=== PATIENT | male | born 1950 ===

== ENCOUNTER 2020-11-15 16:30 | Inpatient (IN) | payer MEDICARE, SELFPAY ==
--- NOTE | ~2020-11-15 | CT_ITS ---
EXAMINATION: CT ABDOMEN AND PELVIS WITHOUT CONTRAST CLINICAL INFORMATION: Fever, pain urinating, hematuria COMPARISON: None TECHNIQUE: Multidetector volumetric imaging was performed from the superior aspect of the liver through the pubic symphysis. Sagittal and coronal reformatted images were obtained on the technologist's workstation. This CT examination was performed using dose optimization techniques as appropriate, variously including the following: *Automated exposure control *Adjustment of mA and/or kV according to patient size (this includes techniques or standardized protocols for targeted exams where dose is matched to indication/reason for exam; i.e. extremities or head) *Use of iterative reconstruction technique DLP: 517 mGy-cm FINDINGS: LUNG BASES: No acute findings. LIVER, GALLBLADDER, AND BILIARY TREE: The liver is normal in size, shape, and attenuation. No biliary ductal dilatation is present. There is a 1.1 cyst within segment 2 of the liver. The gallbladder is unremarkable with no evidence of radiopaque gallstones, gallbladder wall thickening, or obvious pericholecystic inflammatory changes. PANCREAS: Unremarkable. SPLEEN: Unremarkable. ADRENAL GLANDS: Unremarkable. KIDNEYS AND URETERS: Moderate nonspecific perinephric stranding bilaterally. No evidence of hydronephrosis or hydroureter. No radiopaque urolithiasis appreciated. The kidneys are normal in size and shape. BLADDER: The bladder is decompressed which limits assessment. There is circumferential bladder wall thickening and diffuse stranding of the perivesicular fat. GASTROINTESTINAL TRACT: Diverticulosis without CT evidence of diverticulitis. The appendix is unremarkable. No evidence of bowel obstruction. ABDOMINAL WALL: No significant hernia is appreciated. LYMPH NODES: No lymphadenopathy within the abdomen or pelvis by CT criteria. VASCULAR: Atherosclerosis abdominal aorta without evidence of aneurysm. The IVC is singular and right-sided. PELVIC VISCERA: The prostate is enlarged measuring 5.7 cm. OSSEOUS STRUCTURES: No acute or suspicious osseous abnormality. CT/CT abdomen pelvis wo con IMPRESSION: 1. The bladder is decompressed which limits assessment. There is circumferential bladder wall thickening and diffuse stranding of the perivesicular fat. Clinical correlation for cystitis requested. 2. Moderate perinephric stranding bilaterally, nonspecific with differential diagnosis including pyelonephritis as well as multiple renal disease. No evidence of hydroureteronephrosis or radiopaque urolithiasis. 3. Diverticulosis without CT evidence of diverticulitis. 4. Prostatomegaly.
--- NOTE | ~2020-11-15 | XR_ITS ---
EXAMINATION: XR CHEST CLINICAL INFORMATION: Fever. COMPARISON: Chest x-ray May 23, 2019 TECHNIQUE: Frontal portable view of the chest was obtained. 11:10 PM FINDINGS: Lungs are clear. No pulmonary vascular congestion. There is no pleural effusion. The heart size is normal. The cardiac and mediastinal contours are normal. There are calcifications of the thoracic aorta. There is no acute osseous abnormality. XR/XR chest 1V IMPRESSION: Unremarkable examination.
[2020-11-15 16:54] VITALS: BP 127/75; PULSE 93; RESP 18; TEMP 36.6; O2SAT 96; BMI 26.4
[2020-11-15 20:03] VITALS: BP 159/88; PULSE 98; RESP 16; TEMP 38.6; O2SAT 98
--- NOTE | 2020-11-15 20:13 | ED_ITS ---
HPI - Male Genitourinary General Chief complaint: Urogenital-Male Stated complaint: UTI? Time Seen by Provider: 11/15/20 20:00 Source: patient, family and interpreter translator Mode of arrival: ambulatory Limitations: no limitations History of Present Illness HPI Narrative: 70-year-old male came for evaluation of dysuria, frequency, intermittent fever and chills. Patient's symptoms started 2 days ago, symptoms has been constant, no abdominal pain, no nausea, vomiting, diarrhea. Had 1 time urine tract infection in the past. Related Data Allergies Allergy/AdvReac Type Severity Reaction Status Date / Time No Known Allergies Allergy Unverified 01/08/20 19:48 [No Known Allergies*] Review of Systems Review of Systems: All other systems are reviewed and are negative Constitutional: Reports as per HPI and Reports no additional constitutional complaints Eyes: Reports as per HPI and Reports no additional eye complaints Reports system reviewed and no additional complaints, except as documented Cardiovascular: Reports as per HPI and Reports no additional cardiovascular complaints Respiratory: Reports as per HPI and Reports no additional respiratory complaints Gastrointestinal: Reports as per HPI and Reports no additional gastrointestinal complaints Genitourinary: Reports no additional female genitourinary complaints Musculoskeletal: Reports no additional musculoskeletal complaints Skin/Breast: Reports system reviewed and no additional complaints, except as docu Psychiatric: Reports no additional psychiatric complaints Endocrine: Reports no additional endocrine complaints Hematologic/Lymphatic: Reports no additional hematologic/lymphatic complaints Allergic/Immunologic: Reports no additional allergic/immunologic complaints Reports system reviewed and no additional complaints, except as documented and Reports Abnormal speech present PMFSH Past Medical History Medical History Cigarette smoker HTN (hypertension) Surgical History No history of previous surgery Social History Social History Advance Directives: No Advance Directives Information Provided: Yes Physical Exam Vital Signs: Vital Signs: Last Vital Signs Temp 101.5 F H 11/15/20 20:03 Pulse 80 11/15/20 21:52 Resp 16 11/15/20 21:52 BP 127/75 11/15/20 21:52 Pulse Ox 97 11/15/20 21:52 Body Mass Index 26.4 Vital signs have been reviewed as appeared to be correct. Blood pressure normal. Heart rate normal. Respiration rate normal. Temperature (febrile). Oxygen saturation normal. Appearance: Alert. Oriented X3. No acute distress. Head: Normal external exam. Normocephalic. Atraumatic. No Monsivais signs noted. No raccoon eyes noted Eyes: PERRLA. EOMI. Conjunctiva and sclera normal. Eyelids normal. ENT: TM's Normal. Pharynx normal. Uvula midline. Moist mucous membranes. No tr ismus noted. No drooling noted. No muffled voice noted. Neck: Normal inspection. Neck supple. FROM. No adenopathy. Thyroid Normal. No meningeal signs. No neck mass noted. CVS: Normal heart rate and rhythm. Heart sound normal. No murmurs noted. Pulses normal throughout. Respiratory: No respiratory distress. Painless inspiration. Breath sounds normal. No wheezes/rales/rhonchi noted. Chest nontender. No accessory muscle usage noted or decreased air movement noted. Abdomen: Soft and nontender. Bowel sounds normal in all 4 quadrants. No distention noted. No organomegaly noted. No visible injury noted. Back: No CVA tenderness. Full range of motion noted. Skin: Skin warm and dry. Normal skin color. Normal skin turgor. No rashes/lesions/lacerations noted. Extremities: No lower extremity edema. Extremities exhibit normal range of motion. Extremities nontender. Neuro: Oriented X 3. No motor deficit. No sensory deficit. Reflexes normal. Course Course Course Narrative: Assessment and plan. 78-year-old male came in with dysuria, found have cystitis with SIRS, patient received IV fluid, and IV antibiotics. [facility] - Male Genitourinary Lab Data Attestation: I reviewed the patient's lab results. Result diagrams: 11/15/20 20:45 11/15/20 20:45 Labs: Lab Results 11/15/20 11/15/20 11/15/20 Range/Units 20:05 20:45 20:45 WBC 13.2 H (4.8-10.8) X10*3/uL RBC 4.42 L (4.60-5.80) X10*6/uL Hgb 13.8 L (14.0-18.0) g/dl Hct 39.8 L (42-52) % MCV 90.0 (80-98) fL MCH 31.2 (27.0-33.0) pg MCHC 34.7 (31.0-36.0) g/dl RDW 13.9 (11.0-16.0) % Plt Count 166 (160-400) X10*3/uL MPV 11.9 (9.4-12.4) fL Immature Gran % (Auto) 0.5 H (0.0-0.4) % Neut % (Auto) 89.2 H (45-73) % Lymph % (Auto) 2.6 L (20-40) % [place] % (Auto) 7.4 (2-11) % Eos % (Auto) 0.1 (0-4) % Baso % (Auto) 0.2 (0-2) % Lymph # (Auto) 0.3 L (1.2-4.9) X10*3/uL [place] # (Auto) 1.0 (0.1-1.2) X10*3/uL Eos # (Auto) 0.0 (0.0-0.4) X10*3/uL Baso # (Auto) 0.0 (0.0-0.2) X10*3/uL Abs Immat Gran (auto) 0.06 H (0.00-0.03) X10*3/uL Absolute Neuts (auto) 11.8 H (2.0-8.3) X10*3/uL Absolute Nucleated RBC 0.000 (0.0-0.012) X10*3/uL Nucleated RBC % (auto) 0.0 (0.0-0.2) /100WBC Sodium 132 L (135-145) mmol/L Potassium 3.9 (3.3-5.1) mmol/L Chloride 94 L (96-108) mmol/L Carbon Dioxide 26 (22-29) mmol/L Anion Gap 16 (12-20) BUN 22 H (9-16) mg/dL Creatinine 1.34 (0.5-1.4) mg/dL Estim Creat Clear Calc 48.9 Estimated GFR 53 Random Glucose 124 H (60-115) mg/dL Lactic Acid (0.5-2.0) mmol/L Calcium 7.8 L (8.4-10.2) mg/dL Total Bilirubin 0.7 (0.0-1.0) mg/dL Direct Bilirubin 0.4 (0.0-0.5) mg/dL AST 22 (5-37) U/L ALT 26 (0-40) U/L Alkaline Phosphatase 107 (39-117) U/L Total Protein 5.8 L (6.5-8.0) g/dL Albumin 3.4 L (3.5-5.0) g/dL Lipase 10 (8-78) U/L Urine Color YELLOW Urine Appearance CLOUDY Urine pH 6.0 (5.0-8.0) Ur Specific [place] 1.025 (1.005-1.025) Urine Protein 2+ H (NEG-TRACE) MG/DL Urine Glucose (UA) NEG (NEG) MG/DL Urine Ketones NEG (NEG) MG/DL Urine Blood 2+ H (NEG) Urine Nitrite NEG (NEG) Ur Leukocyte Esterase 2+ H (NEG) Urine RBC 1-4 (0) /HPF Urine WBC 15-29 H (0-4) /HPF Ur Squamous Epith Cells TRACE /LPF Amorphous Sediment TRACE /LPF Urine Bacteria 1+ /LPF 11/15/20 Range/Units 20:45 WBC (4.8-10.8) X10*3/uL RBC (4.60-5.80) X10*6/uL Hgb (14.0-18.0) g/dl Hct (42-52) % MCV (80-98) fL MCH (27.0-33.0) pg MCHC (31.0-36.0) g/dl RDW (11.0-16.0) % Plt Count (160-400) X10*3/uL MPV (9.4-12.4) fL Immature Gran % (Auto) (0.0-0.4) % Neut % (Auto) (45-73) % Lymph % (Auto) (20-40) % [place] % (Auto) (2-11) % Eos % (Auto) (0-4) % Baso % (Auto) (0-2) % Lymph # (Auto) (1.2-4.9) X10*3/uL [place] # (Auto) (0.1-1.2) X10*3/uL Eos # (Auto) (0.0-0.4) X10*3/uL Baso # (Auto) (0.0-0.2) X10*3/uL Abs Immat Gran (auto) (0.00-0.03) X10*3/uL Absolute Neuts (auto) (2.0-8.3) X10*3/uL Absolute Nucleated RBC (0.0-0.012) X10*3/uL Nucleated RBC % (auto) (0.0-0.2) /100WBC Sodium (135-145) mmol/L Potassium (3.3-5.1) mmol/L Chloride (96-108) mmol/L Carbon Dioxide (22-29) mmol/L Anion Gap (12-20) BUN (9-16) mg/dL Creatinine (0.5-1.4) mg/dL Estim Creat Clear Calc Estimated GFR Random Glucose (60-115) mg/dL Lactic Acid 0.9 (0.5-2.0) mmol/L Calcium (8.4-10.2) mg/dL Total Bilirubin (0.0-1.0) mg/dL Direct Bilirubin (0.0-0.5) mg/dL AST (5-37) U/L ALT (0-40) U/L Alkaline Phosphatase (39-117) U/L Total Protein (6.5-8.0) g/dL Albumin (3.5-5.0) g/dL Lipase (8-78) U/L Urine Color Urine Appearance Urine pH (5.0-8.0) Ur Specific [place] (1.005-1.025) Urine Protein (NEG-TRACE) MG/DL Urine Glucose (UA) (NEG) MG/DL Urine Ketones (NEG) MG/DL Urine Blood (NEG) Urine Nitrite (NEG) Ur Leukocyte Esterase (NEG) Urine RBC (0) /HPF Urine WBC (0-4) /HPF Ur Squamous Epith Cells /LPF Amorphous Sediment /LPF Urine Bacteria /LPF Imaging Data CT scan - abdomen: Radiologist's impression: 1. The bladder is decompressed which limits as sessment. There is circumferential bladder wall thickening and diffuse stranding of the perivesicular fat. Clinical correlation for cystitis requested. 2. Moderate perinephric stranding bilaterally, nonspecific with differential diagnosis including pyelonephritis as well as multiple renal disease. No evidence of hydroureteronephrosis or radiopaque urolithiasis. 3. Diverticulosis without CT evidence of diverticulitis. 4. Prostatomegaly. Discharge Plan Discharge Clinical Impression: Urinary tract infection Patient Disposition: Admitted As Inpatient
[2020-11-15 20:26] LABS: Glucose Urine UA NEG (NEG); Leukocyte Esterase Urine 2+ (NEG); Nitrite Urine NEG (NEG); Specific Gravity - Urine 1.025 (1.005-1.025); UACC Culture Trigger YES; Urine Blood 2+ (NEG); Urine Ketones NEG (NEG); Urine Protein 2+ MG/DL (NEG-TRACE)
[2020-11-15 20:31] LABS: Appearance Urine CLOUDY; Color Urine YELLOW
[2020-11-15 20:51] LABS: Amorphous Sediment Urine TRACE /LPF; Bacteria Urine 1+ /LPF; Squamous Epithelial Cell Urine TRACE /LPF
[2020-11-15 20:58] LABS: MANUAL DIFF FLAG NO
[2020-11-15 21:00] LABS: Basophils Percent Auto 0.2 % (0-2); Eosinophils Percent Auto 0.1 % (0-4); Hematocrit 39.8 % (42-52); Hemoglobin 13.8 g/dl (14.0-18.0); Imm Gran Abs Auto 0.06 X10*3/uL (0.00-0.03); Imm Gran Pct Auto 0.5 % (0.0-0.4); Lymphocytes Absolute Auto 0.3 X10*3/uL (1.2-4.9); Lymphocytes Percent Auto 2.6 % (20-40); Mean Corpuscular HGB Conc 34.7 g/dl (31.0-36.0); Mean Corpuscular Hemoglobin 31.2 pg (27.0-33.0); Mean Platelet Volume 11.9 fL (9.4-12.4); Monocytes Percent Auto 7.4 % (2-11); Neutrophils Absolute Auto 11.8 X10*3/uL (2.0-8.3); Neutrophils Percent Auto 89.2 % (45-73); Platelet Count 166 X10*3/uL (160-400); Red Blood Count 4.42 X10*6/uL (4.60-5.80); Red Cell Distribution Width 13.9 % (11.0-16.0); White Blood Count 13.2 X10*3/uL (4.8-10.8)
--- NOTE | 2020-11-15 21:11 | PC.NURSE ---
20 ga iv started in L ac.
[2020-11-15 21:19] LABS: Lactic Acid 0.9 mmol/L (0.5-2.0)
[2020-11-15 21:29] LABS: Alanine Aminotransferase 26 U/L (0-40); Albumin Level 3.4 g/dL (3.5-5.0); Alkaline Phosphatase 107 U/L (39-117); Anion Gap 16 (12-20); Aspartate Amino Transferase 22 U/L (5-37); Bilirubin Direct 0.4 mg/dL (0.0-0.5); Bilirubin Total 0.7 mg/dL (0.0-1.0); Blood Urea Nitrogen 22 mg/dL (9-16); Calcium 7.8 mg/dL (8.4-10.2); Carbon Dioxide 26 mmol/L (22-29); Chloride 94 mmol/L (96-108); Creatinine Clr Calc Pharmacy 48.9; Estimated Glomerular Filt Rate 53; Glucose Random 124 mg/dL (60-115); Lipase 10 U/L (8-78); Potassium 3.9 mmol/L (3.3-5.1); Sodium 132 mmol/L (135-145); Total Protein 5.8 g/dL (6.5-8.0)
[2020-11-15] MEDS: levoFLOXacin/D5W 750 MG/150 ML PIGGYBACK 100 MG IV (21:43)
[2020-11-15] MEDS: 0.9 % Sodium Chloride 1,000 ML 999 ML IVCONT (21:43)
[2020-11-15 21:52] VITALS: BP 127/75; PULSE 80; RESP 16; O2SAT 97
[2020-11-15] MEDS: cefTRIAXone sodium 1 GM in 0.9 % Sodium Chloride 50 ML IV (23:33)
[2020-11-16] VITALS: RESP 18
[2020-11-16 00:14] LABS: COVID-19 Test Negative (Negative); IDNOW Serial# 9DD0AD1C
[2020-11-16] MEDS: 0.9 % Sodium Chloride 1,000 ML 100 ML IVCONT ×2 (03:42→11:34)
--- NOTE | 2020-11-16 06:13 | P.HPHOSP_ITS ---
History of Present Illness Date of Service: 11/16/20 Chief Complaint: Urinary infection 70-year-old male Ecuadorean-speaking only with past medical history of hypertension, BPH not on medications who presents to the hospital with complaints of urinary infection. Patient reports urinary frequency, dysuria, urgency for the past 3 days that worsened over the past 1 day. He feels feverish, has chills, he has bilateral flank pain, weakness, low appetite. He has nausea with no vomiting, he has been having diarrhea 1-2 episodes daily for the past 3 days, denies any shortness of breath, no chest pain, no lower extr emity edema, no numbness tingling a no weakness. Has a temperature of 101.5?, blood pressure 159/88, respiratory rate of 16 with a heart rate of 98 satting 98% on room air Labs are significant for WBC count of 13.2, hemoglobin of 13.8, sodium of 132, BUN of 22, creatinine of 1.34, UA that is positive for leukocyte Estrace and WBC, COVID-[address] shows decompressed bladder, circumferential bladder wall thickening and diffuse stranding of the ford fascicular fat consider cystitis, moderate perinephric stranding bilaterally consider pyelonephritis. Diverticulosis with no diverticulitis, prostatomegaly Past medical history as below and confirmed with patient and his at bedside Review of Systems Review of Systems: Yes all other systems are reviewed and are negative [facility] Medical History (Updated 11/16/20 @ 06:20 by Huong Flores MD) Cigarette smoker HTN (hypertension) Surgical History No history of previous surgery Social History Alcohol intake: current Alcohol intake frequency: holidays/special occasions only Patient Tobacco Use Status: Current everyday Tobacco user Smoked in Last 30 Days: No Use of substances other than those prescribed or required for medical reasons: No Advance Directives: No Advance Directives Information Provided: Yes Meds Allergies Allergy/AdvReac Type Severity Reaction Status Date / Time No Known Allergies Allergy Unverified 01/08/20 19:48 [No Known Allergies*] Active Medications: Current Medications Generic Name Dose Route Start Last Admin Trade Name Freq PRN Reason Stop Dose Admin Acetaminophen 650 mg 11/16/20 00:45 Acetaminophen 325 Mg Tablet PO Q6H PRN Pain, Mild (Pain Scale 1-3) Docusate Sodium 100 mg 11/16/20 00:45 Docusate Sodium 100 Mg Capsule PO DAILY PRN Constipation Enoxaparin Sodium 40 mg 11/16/20 02:00 11/16/20 03:43 Enoxaparin Sodium 40 Mg/0.4 Ml Syringe SUBCUT Not Given Q24H [facility] Ceftriaxone Sodium 1 gm/ 50 mls @ 100 mls/hr 11/16/20 22:00 Sodium Chloride IV Q24H MELLO Sodium Chloride 1,000 mls @ 100 mls/hr 11/16/20 00:45 11/16/20 03:42 Ns IVCONT 100 mls/hr .Q10H MELLO Administration Ondansetron HCl 4 mg 11/16/20 00:45 Ondansetron Hcl 4 Mg/2 Ml Vial IVPUSH Q8H PRN Nausea and Vomiting Sodium Chloride 3 ml 11/16/20 08:00 0.9 % Sodium Chloride Flush 3 Ml Syringe IVFLUSH QSHIFT [facility] Home Medications Medication Instructions Recorded Confirmed Last Taken Type No Known Home Meds 11/16/20 11/16/20 Unknown History Physical Exam Vital Signs and Narrative: Vital Signs: Last Vital Signs Temp 101.5 F H 11/15/20 20:03 Pulse 80 11/15/20 21:52 Resp 18 11/16/20 00:00 BP 127/75 11/15/20 21:52 Pulse Ox 97 11/15/20 21:52 Body Mass Index 26.4 Const: General: cooperative and no acute distress Orientat ion/consciousness: patient oriented x3 Eyes: General: appearance normal, both eyes and all related structures Resp: Effort & Inspection: normal respiratory effort and able to speak in complete sentences Cardio: Rate: regular rate Rhythm: regular rhythm GI: Palpation (GI): Soft to palpation Auscultation: normal bowel sounds : Other: Bilateral CVA tenderness Skin: General skin exam: no rashes or lesions noted Neuro: General: patient oriented x3 Cognition (Neuro): normal cognition Extrem: General: Yes normal to inspection and Yes no pedal edema Results Labs CBC and Chem 7: 11/15/20 20:45 11/15/20 20:45 Labs: Laboratory Results - last 24 hr 11/15/20 11/15/20 11/15/20 20:05 20:45 20:45 MCV 90.0 MCH 31.2 MCHC 34.7 RDW 13.9 Plt Count 166 MPV 11.9 Immature Gran % (Auto) 0.5 H Neut % (Auto) 89.2 H Lymph % (Auto) 2.[address] [place] % (Auto) 7.4 Eos % (Auto) 0.1 Baso % (Auto) 0.2 Lymph # (Auto) 0.[address] [place] # (Auto) 1.0 Eos # (Auto) 0.0 Baso # (Auto) 0.0 Abs Immat Gran (auto) 0.06 H Absolute Neuts (auto) 11.8 H Absolute Nucleated RBC 0.000 Nucleated RBC % (auto) 0.0 Anion Gap 16 Estim Creat Clear Calc 48.9 Estimated GFR 53 Random Glucose 124 H Lactic Acid Calcium 7.8 L Total Bilirubin 0.7 Direct Bilirubin 0.4 AST 22 ALT 26 Alkaline Phosphatase 107 Total Protein 5.8 L Albumin 3.4 L Lipase 10 Urine Color YELLOW Urine Appearance CLOUDY Urine pH 6.0 Ur Specific [place] 1.025 Urine Protein 2+ H Urine Glucose (UA) NEG Urine Ketones NEG Urine Blood 2+ H Urine Nitrite NEG Ur Leukocyte Esterase 2+ H Urine RBC 1-4 Urine WBC 15-29 H Ur Squamous Epith Cells TRACE Amorphous Sediment TRACE Urine Bacteria 1+ COVID-19 (UZAIR) COVID-19 Clin Com 11/15/20 11/15/20 20:45 23:34 MCV MCH MCHC RDW Plt Count MPV Immature Gran % (Auto) Neut % (Auto) Lymph % (Auto) [place] % (Auto) Eos % (Auto) Baso % (Auto) Lymph # (Auto) [place] # (Auto) Eos # (Auto) Baso # (Auto) Abs Immat Gran (auto) Absolute Neuts (auto) Absolute Nucleated RBC Nucleated RBC % (auto) Anion Gap Estim Creat Clear Calc Estimated GFR Random Glucose Lactic Acid 0.9 Calcium Total Bilirubin Direct Bilirubin AST ALT Alkaline Phosphatase Total Protein Albumin Lipase Urine Color Urine Appearance Urine pH Ur Specific [place] Urine Protein Urine Glucose (UA) Urine Ketones Urine Blood Urine Nitrite Ur Leukocyte Esterase Urine RBC Urine WBC Ur Squamous Epith Cells Amorphous Sediment Urine Bacteria COVID-19 (UZAIR) Negative COVID-19 Clin Com See Note Imaging Radiologist's Impressions: Impressions Abdomen/Pelvis CT 11/15/20 20:12 IMPRESSION: 1. The bladder is decompressed which limits assessment. There is circumferential bladder wall thickening and diffuse stranding of the perivesicular fat. Clinical correlation for cystitis requested. 2. Moderate perinephric stranding bilaterally, nonspecific with differential diagnosis including pyelonephritis as well as multiple renal disease. No evidence of hydroureteronephrosis or radiopaque urolithiasis. 3. Diverticulosis without CT evidence of diverticulitis. 4. Prostatomegaly. Chest X-Ray 11/15/20 23:11 IMPRESSION: Unremarkable examination. Assessment and Plan (1) Sepsis: Status: Acute (2) Pyelonephritis: Status: Acute (3) Cystitis: Status: Acute (4) DEYANIRA (acute kidney injury): Status: Acute 70-year-old male with past medical history of hypertension not on medication who presents to the hospital with complaints of urinary symptoms found to have sepsis secondary to pyelonephritis/cystitis # sepsis - afebrile, has leukocytosis - sources most likely urine - will start him on IV antibiotics - follow culture - IV fluid # pyelonephritis/cystitis - S seen on CT abdomen/pelvis - start him on IV antibiotic - IV fluid - follow culture # DEYANIRA - most likely secondary to UTI/pyelonephritis - will start him on IV fluid - follow BMP # hypertension - stable - patient reports that he does not take medication DVT prophylaxis: lovenox Quality Stroke Does the patient have a stroke diagnosis?: No VTE Prior VTE?: No VTE Risk Level:: Medical - moderate - high VTE Device Contraindication: Treatment Not Indicated VTE Drug Contraindication: N/A - Med Ordered
[2020-11-16 08:51] VITALS: BP 148/79; PULSE 87; RESP 18; TEMP 37.6; O2SAT 98
--- NOTE | 2020-11-16 08:55 | PC.NURSE ---
Patient is lying in bed resting quietly in no distress. Pt states he only hurts when he tries to void. Family is at bedside
--- NOTE | 2020-11-16 10:12 | MHC.CM.PN ---
Met with patient and spouse Santa and the help of the component assembler supervisor. Patient lives with his daughter, ambulates independently and had no services prior to coming to the hospital. Patient's PCP is in [place]. Patient denies having a HCP. Information provided. Patient not interested in completing one at this time. Patient received 2 doses of Moderna vaccine. IMM explained and signed. Anticipate patient will not be eligible for any home services because PCP is in [place]. Family will transport patient home when medically stable. Continue to monitor or d/c needs.
--- NOTE | 2020-11-16 10:12 | PC.NURSE ---
Report jewell to ONELAI Santana.
[2020-11-16] MEDS: 0.9 % Sodium Chloride Flush 3 ML SYRINGE IVFLUSH ×3 (11:34→21:00)
[2020-11-16 11:59] VITALS: BP 149/80; PULSE 74; RESP 20; TEMP 36.9; O2SAT 98
--- NOTE | 2020-11-16 14:07 | PM.EVENT ---
Event Note Date of Service: 11/16/20 Event Note: Day Team Note S Resting comfortably Daughter beside who endorses urinary symptoms on going during their trip to [place]. O vitals - stable Gen - sleeping CVS - S1S2 LUngs - clear Abd - soft - no flank tenderness A/P 70 yo admitted for sepsis secondary to pyelonephritis IV rocephin f/u cultures has enlarged prostate on CT -- will start flomax
[2020-11-16 16:00] VITALS: BP 170/91; PULSE 78; RESP 18; TEMP 37.4; O2SAT 98
[2020-11-16 20:00] VITALS: BP 136/72; PULSE 76; RESP 14; TEMP 37.3; O2SAT 96
[2020-11-16] MEDS: cefTRIAXone sodium 1 GM in 0.9 % Sodium Chloride 50 ML IV (20:59)
[2020-11-16] MEDS: Tamsulosin HCL 0.4 MG CAPSULE PO (20:59)
[2020-11-16 23:54] VITALS: BP 126/78; PULSE 64; RESP 16; TEMP 36.3; O2SAT 97
[2020-11-17] MEDS: Enoxaparin Sodium 40 MG/0.4 ML SYRINGE SUBCUT (03:02)
[2020-11-17 06:36] LABS: Basophils Percent Auto 0.3 % (0-2); Eosinophils Absolute Auto 0.1 X10*3/uL (0.0-0.4); Eosinophils Percent Auto 1.8 % (0-4); Hematocrit 36.9 % (42-52); Hemoglobin 12.5 g/dl (14.0-18.0); Imm Gran Abs Auto 0.02 X10*3/uL (0.00-0.03); Imm Gran Pct Auto 0.3 % (0.0-0.4); Lymphocytes Absolute Auto 1.1 X10*3/uL (1.2-4.9); Lymphocytes Percent Auto 13.9 % (20-40); MANUAL DIFF FLAG SCAN; Mean Corpuscular HGB Conc 33.9 g/dl (31.0-36.0); Mean Corpuscular Hemoglobin 30.6 pg (27.0-33.0); Mean Corpuscular Volume 90.2 fL (80-98); Mean Platelet Volume 11.9 fL (9.4-12.4); Monocytes Absolute Auto 1.6 X10*3/uL (0.1-1.2); Monocytes Percent Auto 20.7 % (2-11); Platelet Count 171 X10*3/uL (160-400); Red Blood Count 4.09 X10*6/uL (4.60-5.80); Red Cell Distribution Width 14.2 % (11.0-16.0); SCAN SMEAR FLAG 1; White Blood Count 7.8 X10*3/uL (4.8-10.8)
[2020-11-17 06:48] LABS: Anion Gap 10 (12-20); Blood Urea Nitrogen 13 mg/dL (9-16); Calcium 7.9 mg/dL (8.4-10.2); Carbon Dioxide 29 mmol/L (22-29); Chloride 102 mmol/L (96-108); Estimated Glomerular Filt Rate > 60; Glucose Random 121 mg/dL (60-115); Potassium 3.7 mmol/L (3.3-5.1); Sodium 137 mmol/L (135-145)
[2020-11-17 07:35] VITALS: BP 127/75; PULSE 54; RESP 17; TEMP 36.5; O2SAT 96
[2020-11-17 07:43] LABS: SLIDE REVIEW VERIFIED
--- NOTE | 2020-11-17 09:23 | HO.PM.IMPN ---
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 Reports he is not sexually active, with his nor anyone else Review of Systems General - no fevers or chills Cardiovascular - no chest pain Respiratory - no shortness of breath or cough Abdominal- no abdominal pain, nausea, vomiting, diarrhea Physical Exam Vital Signs: Vital Signs: Last Vital Signs Temp 97.7 F 11/17/20 07:35 Pulse 54 11/17/20 07:35 Resp 17 11/17/20 07:35 BP 127/75 11/17/20 07:35 Pulse Ox 96 11/17/20 07:35 Body Mass Index 26.4 Const: Other: General - no acute distress, appears comfortable Cardiovascular - regular rate and rhythm, S1-S2 Lungs - normal respiratory effort, clear to auscultation bilaterally, no wheezing Abdomen - soft, nontender, no rebound or guarding Extremities - no edema bilaterally Neuro - awake and alert, no focal deficits Objective Data Current Medications Generic Name Dose Route Start Last Admin Trade Name Desmondq PRN Reason Stop Dose Admin Acetaminophen 650 mg 11/16/20 00:45 Acetaminophen 325 Mg Tablet PO Q6H PRN Pain, Mild (Pain Scale 1-3) Docusate Sodium 100 mg 11/16/20 00:45 Docusate Sodium 100 Mg Capsule PO DAILY PRN Constipation Enoxaparin Sodium 40 mg 11/16/20 02:00 11/17/20 03:02 Enoxaparin Sodium 40 Mg/0.4 Ml Syringe SUBCUT 40 mg Q24H MELLO Administration Ceftriaxone Sodium 1 gm/ 50 mls @ 100 mls/hr 11/16/20 22:00 11/16/20 21:36 Sodium Chloride IV Infused Q24H MELLO Infusion Ondansetron HCl 4 mg 11/16/20 00:45 Ondansetron Hcl 4 Mg/2 Ml Vial IVPUSH Q8H PRN Nausea and Vomiting Sodium Chloride 3 ml 11/16/20 08:00 11/16/20 21:00 0.9 % Sodium Chloride Flush 3 Ml Syringe IVFLUSH 3 ml QSHIFT MELLO Administration Tamsulosin HCl 0.4 mg 11/16/20 21:00 11/16/20 20:59 Tamsulosin Hcl 0.4 Mg Capsule PO 0.4 mg BEDTIME MELLO Administration Labs CBC & Chem 7: 11/17/20 04:57 11/17/20 04:57 Labs: Laboratory Results - last 24 hr 11/17/20 11/17/20 04:57 04:57 WBC 7.8 RBC 4.09 L Hgb 12.5 L Hct 36.9 L MCV 90.2 MCH 30.6 MCHC 33.9 RDW 14.2 Plt Count 171 MPV 11.9 Immature Gran % (Auto) 0.3 Neut % (Auto) 63.0 Lymph % (Auto) 13.9 L [place] % (Auto) 20.7 H Eos % (Auto) 1.8 Baso % (Auto) 0.3 Lymph # (Auto) 1.1 L [place] # (Auto) 1.6 H Eos # (Auto) 0.1 Baso # (Auto) 0.0 Abs Immat Gran (auto) 0.02 Absolute Neuts (auto) 5.0 Absolute Nucleated RBC 0.000 Nucleated RBC % (auto) 0.0 Smear Tech's Comments VERIFIED Sodium 137 Potassium 3.7 Chloride 102 Carbon Dioxide 29 Anion Gap 10 L BUN 13 Creatinine 0.95 Estim Creat Clear Calc 69.0 Estimated GFR > 60 Random Glucose 121 H Calcium 7.9 L Microbiology Microbiology Results: Microbiology 11/15/20 21:14 Blood Culture - Preliminary Blood - Venous No growth after 24 hours. 11/15/20 20:45 Blood Culture - Preliminary Blood - Venous No growth after 24 hours. 11/15/20 Unknown Urine Culture - Preliminary Urine clean catch - Urine villa top Culture in progress. Assessment and Plan (1) Sepsis: Status: Acute Assessment and Plan: 70-year-old male with past medical history of hypertension not on medication who presents to the hospital with complaints of urinary symptoms found to have sepsis secondary to pyelonephritis/cystitis Sepsis resolving source f/u on cultures -- GNB in the urine Pyelonephritis, bilateral IV rocephin Pyridium for dysuria DEYANIRA - suspected ATN from sepsis SCr improved from 1.34 to 0.95 continue to monitor HTN previously on meds --- unclear which will start norvasc 5mg Enlarged Prostate flomax will give out patient referral to Urology Full Code DVT pptx, Lovenox Quality Stroke Does the patient have a stroke diagnosis?: No VTE Prior VTE?: No VTE Risk Level:: Medical - moderate - high VTE Device Contraindication: Treatment Not Indicated VTE Drug Contraindication: N/A - Med Ordered
[2020-11-17] MEDS: 0.9 % Sodium Chloride Flush 3 ML SYRINGE IVFLUSH ×2 (09:33→16:56)
[2020-11-17 11:03] VITALS: BP 162/76; PULSE 66; RESP 17; TEMP 36.1; O2SAT 97
[2020-11-17] MEDS: amLODIPine Besylate 5 MG TABLET PO (14:20)
[2020-11-17] MEDS: Omeprazole 20 MG CAPSULE.DR PO (14:21)
[2020-11-17 15:12] VITALS: BP 169/84; PULSE 87; RESP 18; TEMP 36.6; O2SAT 98
[2020-11-17] MEDS: Phenazopyridine HCL 100 MG TABLET PO (16:55)
[2020-11-17 18:51] VITALS: BP 190/86; PULSE 73; RESP 16; TEMP 36.5; O2SAT 97
[2020-11-17] MEDS: Tamsulosin HCL 0.4 MG CAPSULE PO (21:22)
[2020-11-17] MEDS: Acetaminophen 325 MG TABLET 650 MG PO (21:22)
[2020-11-17] MEDS: cefTRIAXone sodium 1 GM in 0.9 % Sodium Chloride 50 ML IV (21:24)
[2020-11-18] VITALS (9 sets, daily range): BP systolic 143–166; BP diastolic 71–88; PULSE 63–84; RESP 16–20; TEMP 36.2–36.9; O2SAT 94–99
[2020-11-18] MEDS: 0.9 % Sodium Chloride Flush 3 ML SYRINGE IVFLUSH ×2 (00:58→15:36)
[2020-11-18] MEDS: Enoxaparin Sodium 40 MG/0.4 ML SYRINGE SUBCUT (00:58)
[2020-11-18] MEDS: Omeprazole 20 MG CAPSULE.DR PO (06:09)
[2020-11-18] MEDS: amLODIPine Besylate 5 MG TABLET PO (08:20)
[2020-11-18] MEDS: Phenazopyridine HCL 100 MG TABLET PO ×3 (08:20→17:26)
--- NOTE | 2020-11-18 12:42 | HO.PM.IMPN ---
Subjective Subjective Date of Service: 11/18/20 Interval History: Seen and examined this morning Follow-up for UTI/pyelonephritis Denies fever, chills, abdominal pain. Still with some dysuria Review of Systems Review of Systems: Yes all other systems are reviewed and are negative Constitutional Constitutional: Denies chills and Denies fever(s) Cardiovascular Cardiovascular: Denies chest pain Respiratory Respiratory: Denies cough Gastrointestinal Gastrointestinal: Denies abdominal pain Physical Exam Vital Signs: Vital Signs: Last Vital Signs Temp 97.1 F 11/18/20 11:15 Pulse 84 11/18/20 11:15 Resp 17 11/18/20 11:15 BP 155/75 H 11/18/20 11:15 Pulse Ox 99 11/18/20 11:15 Body Mass Index 26.4 Const: Nutritional Appearance: well nourished Orientation/consciousness: patient oriented x3 HENMT: Head: Yes normocephalic and Yes atraumatic Eyes: Sclerae: sclerae normal Resp: Effort & Inspection: normal respiratory effort and no respiratory distress Cardio: Rate: regular rate Rhythm: regular rhythm GI: Palpation (GI): Soft to palpation and nontender Neuro: General: patient oriented x3 Cranial nerves: Yes CN's II-XII intact bilaterally and Yes Bilaterally intact EOM present Objective Data Current Medications Generic Name Dose Route Start Last Admin Trade Name Freq PRN Reason Stop Dose Admin Acetaminophen 650 mg 11/16/20 00:45 11/17/20 21:22 Acetaminophen 325 Mg Tablet PO 650 mg Q6H PRN Administration Pain, Mild (Pain Scale 1-3) Amlodipine Besylate 5 mg 11/17/20 13:55 11/18/20 08:20 Amlodipine Besylate 5 Mg Tablet PO 5 mg DAILY MELLO Administration Protocol Docusate Sodium 100 mg 11/16/20 00:45 Docusate Sodium 100 Mg Capsule PO DAILY PRN Constipation Enoxaparin Sodium 40 mg 11/16/20 02:00 11/18/20 00:58 Enoxaparin Sodium 40 Mg/0.4 Ml Syringe SUBCUT 40 mg Q24H MELLO Administration Ceftriaxone Sodium 1 gm/ 50 mls @ 100 mls/hr 11/16/20 22:00 11/17/20 22:03 Sodium Chloride IV Infused Q24H MELLO Infusion Omeprazole 20 mg 11/17/20 14:00 11/18/20 06:09 Omeprazole 20 Mg Capsule. PO 20 mg DAILY@0630 MELLO Administration Ondansetron HCl 4 mg 11/16/20 00:45 Ondansetron Hcl 4 Mg/2 Ml Vial IVPUSH Q8H PRN Nausea and Vomiting Phenazopyridine HCl 100 mg 11/17/20 17:00 11/18/20 11:39 Phenazopyridine Hcl 100 Mg Tablet PO 11/19/20 12:01 100 mg TIDWM MELLO Administration Sodium Chloride 3 ml 11/16/20 08:00 11/18/20 08:21 0.9 % Sodium Chloride Flush 3 Ml Syringe IVFLUSH Not Given QSHIFT MELLO Tamsulosin HCl 0.4 mg 11/16/20 21:00 11/17/20 21:22 Tamsulosin Hcl 0.4 Mg Capsule PO 0.4 mg BEDTIME MELLO Administration Labs CBC & Chem 7: 11/17/20 04:57 11/17/20 04:57 Microbiology Microbiology Results: Microbiology 11/15/20 Unknown Urine Culture - Preliminary Urine clean catch - Urine villa top Escherichia coli 11/15/20 21:14 Blood Culture - Preliminary Blood - Venous No growth after 48 hours. 11/15/20 20:45 Blood Culture - Preliminary Blood - Venous No growth after 48 hours. Assessment and Plan (1) DEYANIRA (acute kidney injury): Status: Acute (2) Pyelonephritis: Status: Acute Assessment and Plan: 70-year-old male with past medical history of hypertension not on medication who presents to the hospital with complaints of urinary symptoms found to have sepsis secondary to pyelonephritis/cystitis Sepsis resolving source f/u on cultures -- GNB in the urine Pyelonephritis, bilateral Continue IV rocephin started 11/16. Will need total 14 days on discharge Pyridium for dysuria -awaiting final urine culture results. Blood cultures negative times 48 hours DEYANIRA - suspected ATN from sepsis SCr improved from 1.34 to 0.95 continue to monitor HTN Blood pressure improved previously on meds --- unclear which -continue norvasc 5mg Enlarged Prostate flomax will give out patient referral to Urology Full Code DVT pptx, Lovenox Attending-Dr. Frank Murray Stroke Does the patient have a stroke diagnosis?: No VTE Prior VTE?: No VTE Risk Level:: Medical - moderate - high VTE Device Contraindication: Treatment Not Indicated VTE Drug Contraindication: N/A - Med Ordered
[2020-11-18] MEDS: Tamsulosin HCL 0.4 MG CAPSULE PO (21:00)
[2020-11-18] MEDS: cefTRIAXone sodium 1 GM in 0.9 % Sodium Chloride 50 ML IV (21:00)
[2020-11-19] MEDS: Enoxaparin Sodium 40 MG/0.4 ML SYRINGE SUBCUT (02:29)
[2020-11-19] MEDS: 0.9 % Sodium Chloride Flush 3 ML SYRINGE IVFLUSH ×2 (02:29→07:44)
[2020-11-19 03:44] VITALS: BP 161/81; PULSE 60; RESP 17; TEMP 36.3; O2SAT 93
[2020-11-19] MEDS: Omeprazole 20 MG CAPSULE.DR PO (06:11)
[2020-11-19 07:43] VITALS: BP 152/89; PULSE 65; RESP 18; TEMP 36.1; O2SAT 96
[2020-11-19 07:44] VITALS: BP 152/89; PULSE 65
[2020-11-19] MEDS: Phenazopyridine HCL 100 MG TABLET PO ×2 (07:44→12:11)
[2020-11-19] MEDS: amLODIPine Besylate 5 MG TABLET PO (07:44)
--- NOTE | 2020-11-19 11:31 | PM.DS ---
DS: Providers Provider Date of Service: 11/19/20 Date of admission: 11/16/20 00:44 Primary care physician: None Physician DS: Diagnosis Discharge Diagnosis (1) Pyelonephritis: Status: Acute (2) DEYANIRA (acute kidney injury): Status: Acute (3) Sepsis: Status: Acute (4) BPH (benign prostatic hyperplasia): Status: Acute DS: Medications Discharge Medications Home Medications: Home Medications Medication Instructions Recorded Confirmed No Known Home Meds 11/16/20 11/16/20 DS: Summary Hospital Course Hospital Course: From H&P on day of admission this is a 70 year male Guyanese-speaking only with past medical history of hypertension, BPH not on medications who presents to the hospital with complaints of urinary infection.? Patient reports urinary frequency, dysuria, urgency for the past 3 days that worsened over the past 1 day.? He feels feverish, has chills, he has bilateral flank pain, weakness, low appetite.? He has nausea with no vomiting, he has been having diarrhea 1-2 episodes daily for the past 3 days, denies any shortness of breath, no chest pain, no lower extremity edema, no numbness tingling a no weakness. Has a temperature of 101.5?, blood pressure 159/88, respiratory rate of 16 with a heart rate of 98 satting 98% on room air Labs are significant for WBC count of 13.2, hemoglobin of 13.8, sodium of 132, BUN of 22, creatinine of 1.34, UA that is positive for leukocyte Estrace and WBC, COVID-[address] shows decompressed bladder, circumferential bladder wall thickening and diffuse stranding of the ford fascicular fat consider cystitis, moderate perinephric stranding bilaterally consider pyelonephritis.? Diverticulosis with no diverticulitis, prostatomegaly Past medical history as below and confirmed with patient and his at bedside Sepsis secondary to pyelonephritis. Resolved Pyelonephritis, bilateral. Started on rocephin 11/16.? Final urine cultures returned 11/19 growing ESBL positive E coli. Midline placed. Antibiotics changed to ertapenem, received 1st dose prior to discharge. Will present to short-stay surgery daily for the next 13 days to complete total 14 days antibiotics. Blood cultures have remained negative. DEYANIRA - suspected ATN from sepsis. Resolved HTN. The patient had not been taking medication at home. Was started on Norvasc 5 mg daily with improvement in blood pressure. Should obtain PCP for ongoing blood pressure management. Enlarged Prostate. Was started on flomax. Recommend outpatient Urology follow-up Time Spent with Patient Time attestation: Total time spent providing and/or coordinating discharge services: Discharge coordination time: Greater than 30 minutes Quality: Stroke Does the patient have a stroke diagnosis?: No Physical Exam Vital Signs: Vital Signs: Last Vital Signs Temp 97.0 F 11/19/20 07:43 Pulse 65 11/19/20 07:44 Resp 18 11/19/20 07:43 BP 152/89 H 11/19/20 07:44 Pulse Ox 96 11/19/20 07:43 Body Mass Index 26.4 Const: Nutritional Appearance: well nourished Orientation/consciousness: patient oriented x3 HENMT: Head: Yes normocephalic and Yes atraumatic Eyes: Sclerae: sclerae normal Resp: Effort & Inspection: normal respiratory effort and no respiratory distress Cardio: Rate: regular rate Rhythm: regular rhythm GI: Palpation (GI): Soft to palpation and nontender Neuro: General: patient oriented x3 Cranial nerves: Yes CN's II-XII intact bilaterally and Yes Bilaterally intact EOM present DS: Data Data Completed and Pending Labs on day of discharge: Preliminary micro results at discharge 11/15/20 21:14 Blood Culture - Preliminary Blood - Venous No growth after 48 hours. 11/15/20 20:45 Blood Culture - Preliminary Blood - Venous No growth after 48 hours. Discharge Plan Discharge Patient Disposition: Home, Self-Care Discharge Diagnosis: ESBL positive E coli UTI Sepsis DEYANIRA Referrals: SHORT STAY DISCHARGE AT [facility] 2ND FLOOR [Other] - 1 Week (IV ANTIBIOTIC EVERY DAY AT 10AM FOR THE NEXT 13 DAYS, THEY WILL DO ANY LABS AND PROIVDE CARE FOR THE MID-LINE THEY WILL REMOVE OUT WHEN ANTIBIOTIC IS COMPLETED) DR LEÓN WOODY [Other] - 1 Week Karel Rios MD [Physician] - 1 Week Physician,None [Primary Care Provider] - 1 Week Discharge Medications: New tamsulosin 0.4 mg Capsule 0.4 mg PO BEDTIME 30 Days Qty: 30 RF: 0 amlodipine 5 mg Tablet 5 mg PO DAILY 30 Days Qty: 30 RF: 0 ertapenem 1 gram recon soln 1 g IV DAILY 13 Days RF: 0 omeprazole 20 mg capsule,delayed release(DR/EC) 20 mg PO DAILY Qty: 30 RF: 0 Discharge Orders: Discharge Order (Routine); Ordered 11/19/20 Ordered By: Frieda Tang Activity on Discharge: As tolerated Stand Alone Forms: Patient Portal Discharge page Care Plan Goals: See below Health Concerns: Pyelonephritis. Hypertension BPH DEYANIRA. Resolved sepsis.resolved Plan of Treatment: Pyelonephritis. You will need to present to short-stay surgery daily for the next 13 days to receive daily dose of IV antibiotics (ertapenem) through midline. Midline can be removed on last day of antibiotics. Hypertension. You have been started on Norvasc to control your blood pressure. Please take as prescribed Enlarged prostate. You have been started on a medication for enlarged prostate. You should call to schedule a follow-up appointment with the urologist You will need to obtain a PCP Assessment: See discharge summary Discharge Date/Time: 11/19/20 14:45
--- NOTE | 2020-11-19 11:50 | HO.MIDLINE_ITS ---
PICC Line Insertion MIDLINE INSERTION Diagnosis: PYELONEPHRITIS Indication: LONGTERM IV ANTIBIOTICS Pertinent Labs: REVIEWED Technique: Using sterile technique including cap and mask, glove and drape, the RIGHT arm was prepped and draped in the usual sterile fashion of full barrier technique with CHG. Using ultrasound guidance, BASILIC vein access was obtained IN SINGLE ATTEMPT BY THIS RN. A SINGLE LUMEN, NON-PASV, (20G x 8CM) MIDLINE was positioned. The procedure was performed in S-272. Ultrasound was used to document vein patency and for needle entry. A formal ultrasound picture was recorded. [employer] Worker has released the line for use and it is currently dressed with a StatLock, Tegaderm, and CHG disc. Verification has bee n performed for blood return and line patency. Arm Circumference: 30.5 CM Equipment: [employer] POWERGLIDE PRO Catheter Type: SINGLE LUMEN, NON-PASV, (20G x 8CM) Lot #: [id number]
[2020-11-19 12:00] VITALS: BP 150/83; PULSE 62; RESP 18; TEMP 36.4; O2SAT 99
[2020-11-19] MEDS: Ertapenem Sodium 1 GM in 0.9 % Sodium Chloride 50 ML IV (12:10)
--- NOTE | 2020-11-19 13:02 | MHC.CM.PN ---
11/19/20 12:06 - Case Mgmt Progress Note by Gail Forde Acct Num: [id number] : 01/11/1955 Patient Age: 65 nurse personal care aid note electronic medical record and discharge instructions reviewed . met with patient svetlana his and dAUGHTER THROUGH [place] CITIZEN INTERPERTER INFORMED HIM HE WOULD BE GOING DOWN TO [facility] FOR A MIDLINE IV. HE WILL THEN UPON RETURNING TO THE FLOOR HE WILL HAVE FIRST DOSE OF ERTAPENAM BE GIVEN , AFTER THIS INFUSION AND COMPLETION OF ALL DISCHARGE PAPER WORK HE CAN GO HOME, DISCHARGE PLAN HOME WITH WITH NEW IV ACESS HE WILL COME BACK [facility] FOR 10 AM APPOINTMENT TO THE DAYSTAY DISCHARGE FOR IV ANTIBIOTIC FOR THE NEXT 13 DAYS HE CAN HAVE ONE VISITOR WITH HIM PCP PATIENT TO CHOOSE AND MAKE APPOINTMENT FOR FOR PCP DR LEÓN WOODY ID THEIR OFFICE WILL CALL PATIENT AT HOME WITH APPOINTMENT TIME , I REVIEWED THIS WITH HIM X2 WITH HIS UNDERSTANDING MEDICARE IMM UPDATED gave to alex in shory stay discharge the midline information and flush orders as well as the physicians orders and abx script, staff nurse to give first doese of erapenum here and then be discharged patient to go to the er to register and then go to short stay discharge
--- NOTE | 2020-11-19 13:05 | MHC.CM.PN ---
nurse career development director note electronic medical record reviewed along with case discussed with staff nurse and met with patient , she reported she is feeling a little better but is stuill having persistent gas pain when eating. she anticipates to be discharged home tomorrow discharge plan home with the [facility] for nusing and home physical theapry
== END 2020-11-19 14:45 | disposition home or self-care (01) | DRG 872 ==
LOC: HO.ED 23:11 → HO.EDOVER 11-16 01:29 → HO.S3 11-16 10:00
PROVIDERS: Physician Assistant; Admitting Provider Internal Medicine; Emergency Provider Emergency Medicine; Visit Provider Family Medicine
DX: A41.9 Sepsis, unspecified organism (principal); N12 Tubulo-interstitial nephritis, not specified as acute or chronic; Z16.12 Extended spectrum beta lactamase (ESBL) resistance; I10 Essential (primary) hypertension; F17.210 Nicotine dependence, cigarettes, uncomplicated; Z71.6 Tobacco abuse counseling; N40.0 Benign prostatic hyperplasia without lower urinary tract symptoms; B96.20 Unspecified Escherichia coli [E. coli] as the cause of diseases classified elsewhere; Z91.14 Patient's other noncompliance with medication regimen; Z20.822 Contact with and (suspected) exposure to COVID-19; Z79.899 Other long term (current) drug therapy
CPT/HCPCS: 36410; 36415; 71045; 74176; 80048; 80076; 81001; 81003; 83605; 83690; 85025; 87040; 87086; 87088; 87186; 87635; 99285; J0696; J1335; J1642; J1650; J1956

== ENCOUNTER 2020-11-20 10:15 | Outpatient (REF) | payer MEDICARE, SELFPAY | END 2020-11-20 10:16 | disposition home or self-care (01) | LOC: HO.MDS 10:15 | PROVIDERS: Visit Provider Physician Assistant Medical | DX: Z45.2 Encounter for adjustment and management of vascular access device (principal); N39.0 Urinary tract infection, site not specified | CPT/HCPCS: 96365; J1335; J1642 ==

== ENCOUNTER 2020-11-21 09:46 | Outpatient (REF) | payer MEDICARE, SELFPAY | END 2020-11-21 09:47 | disposition home or self-care (01) | LOC: HO.MDS 09:46 | PROVIDERS: Visit Provider Physician Assistant Medical | DX: Z45.2 Encounter for adjustment and management of vascular access device (principal); N39.0 Urinary tract infection, site not specified | CPT/HCPCS: 96365; J1335; J1642 ==

== ENCOUNTER 2020-11-22 09:58 | Outpatient (REF) | payer MEDICARE, SELFPAY | END 2020-11-22 09:59 | disposition home or self-care (01) | LOC: HO.MDS 09:58 | PROVIDERS: Visit Provider Physician Assistant Medical | DX: Z45.2 Encounter for adjustment and management of vascular access device (principal); N39.0 Urinary tract infection, site not specified | CPT/HCPCS: 96365; J1335; J1642 ==

== ENCOUNTER 2020-11-23 10:51 | Outpatient (REF) | payer MEDICARE, SELFPAY | END 2020-11-23 10:52 | disposition home or self-care (01) | LOC: HO.MDS 10:51 | PROVIDERS: Visit Provider Physician Assistant Medical | DX: Z45.2 Encounter for adjustment and management of vascular access device (principal); N39.0 Urinary tract infection, site not specified | CPT/HCPCS: 96365; J1335; J1642 ==

== ENCOUNTER 2020-11-24 12:19 | Outpatient (REF) | payer MEDICARE, SELFPAY | END 2020-11-24 12:20 | disposition home or self-care (01) | LOC: HO.MDS 12:19 | PROVIDERS: Visit Provider Physician Assistant Medical | DX: Z45.2 Encounter for adjustment and management of vascular access device (principal); N39.0 Urinary tract infection, site not specified | CPT/HCPCS: J1335; J1642 ==

== ENCOUNTER 2020-11-25 08:40 | Outpatient (REF) | payer MEDICARE, SELFPAY ==
--- NOTE | 2020-11-25 11:09 | HO.MIDLINE_ITS ---
PICC Line Insertion MIDLINE INSERTION Diagnosis: PYELONEPHRITIS Indication: NURSING HOME IV ANTIBIOTICS Pertinent Labs: REVIEWED Technique: Using sterile technique including cap and mask, glove and drape, the RIGHT arm was prepped and draped in the usual sterile fashion of full barrier technique with CHG. Using ultrasound guidance, BASILIC vein access was obtained IN SINGLE ATTEMPT BY THIS RN. A SINGLE LUMEN, NON-PASV, (20G x 8CM) MIDLINE was positioned. The procedure was performed in DAY STAY SURGERY. Ultrasound was used to document vein patency and for needle entry. A formal ultrasound picture was recorded. [employer] has released the line for use and it is currently dressed with a StatLock, Tegaderm, and CHG disc. Verification has been performed for blood return and line patency. Arm Circumference: 31 CM Equipment: [employer] POWERGLIDE PRO MIDLINE Catheter Type: SINGLE LUMEN, NON-PASV, (20G X 8CM) Lot #: [id number]
[2020-11-25 11:50] LABS: Hematocrit 45.2 % (42-52); Hemoglobin 14.5 g/dl (14.0-18.0); Mean Corpuscular HGB Conc 32.1 g/dl (31.0-36.0); Mean Corpuscular Hemoglobin 30.3 pg (27.0-33.0); Mean Corpuscular Volume 94.4 fL (80-98); Mean Platelet Volume 9.9 fL (9.4-12.4); Platelet Count 545 X10*3/uL (160-400); Red Blood Count 4.79 X10*6/uL (4.60-5.80); Red Cell Distribution Width 14.6 % (11.0-16.0); White Blood Count 15.8 X10*3/uL (4.8-10.8)
[2020-11-25 12:15] LABS: Blood Urea Nitrogen 15 mg/dL (9-16); Estimated Glomerular Filt Rate > 60
== END 2020-11-25 08:41 | disposition home or self-care (01) ==
LOC: HO.MDS 08:40
PROVIDERS: Absent Provider Urology; Visit Provider Physician Assistant Medical
DX: Z45.2 Encounter for adjustment and management of vascular access device (principal); N39.0 Urinary tract infection, site not specified; N12 Tubulo-interstitial nephritis, not specified as acute or chronic; N17.9 Acute kidney failure, unspecified; R39.15 Urgency of urination
CPT/HCPCS: 36410; 36415; 82565; 84520; 85027; 96365; J1335; J1642

== ENCOUNTER 2020-11-26 08:52 | Outpatient (REF) | payer MEDICARE, SELFPAY | END 2020-11-26 08:53 | disposition home or self-care (01) | LOC: HO.MDS 08:52 | PROVIDERS: Visit Provider Physician Assistant Medical | DX: Z45.2 Encounter for adjustment and management of vascular access device (principal); N39.0 Urinary tract infection, site not specified | CPT/HCPCS: 96365; J1335; J1642 ==

== ENCOUNTER 2020-11-27 09:38 | Outpatient (REF) | payer MEDICARE, SELFPAY | END 2020-11-27 09:39 | disposition home or self-care (01) | LOC: HO.MDS 09:38 | PROVIDERS: Visit Provider Physician Assistant Medical | DX: Z45.2 Encounter for adjustment and management of vascular access device (principal); N39.0 Urinary tract infection, site not specified | CPT/HCPCS: 96365; J1335; J1642 ==

== ENCOUNTER 2020-11-28 09:50 | Outpatient (REF) | payer MEDICARE, SELFPAY | END 2020-11-28 09:51 | disposition home or self-care (01) | LOC: HO.MDS 09:50 | PROVIDERS: Visit Provider Physician Assistant Medical | DX: Z45.2 Encounter for adjustment and management of vascular access device (principal); N39.0 Urinary tract infection, site not specified | CPT/HCPCS: 96365; J1335; J1642 ==

== ENCOUNTER 2020-11-29 09:21 | Outpatient (REF) | payer MEDICARE, SELFPAY | END 2020-11-29 09:22 | disposition home or self-care (01) | LOC: HO.MDS 09:21 | PROVIDERS: Visit Provider Physician Assistant Medical | DX: Z45.2 Encounter for adjustment and management of vascular access device (principal); N39.0 Urinary tract infection, site not specified | CPT/HCPCS: 96365; J1335; J1642 ==

== ENCOUNTER 2020-11-30 09:58 | Outpatient (REF) | payer MEDICARE, SELFPAY | END 2020-11-30 09:59 | disposition home or self-care (01) | LOC: HO.MDS 09:58 | PROVIDERS: Visit Provider Physician Assistant Medical | DX: Z45.2 Encounter for adjustment and management of vascular access device (principal); N39.0 Urinary tract infection, site not specified | CPT/HCPCS: 96365; J1335; J1642 ==

== ENCOUNTER 2020-12-01 10:12 | Outpatient (REF) | payer MEDICARE, SELFPAY | END 2020-12-01 10:13 | disposition home or self-care (01) | LOC: HO.MDS 10:12 | PROVIDERS: Visit Provider Physician Assistant Medical | DX: Z45.2 Encounter for adjustment and management of vascular access device (principal); N39.0 Urinary tract infection, site not specified | CPT/HCPCS: 96365; J1335; J1642 ==

== ENCOUNTER 2020-12-02 10:18 | Outpatient (REF) | payer MEDICARE, SELFPAY ==
--- NOTE | 2020-12-02 11:25 | HO.MIDLINE ---
PICC Line Insertion midline removal intact 20g x 8cm midline removed from rue d/t completion of antibiotics per request. no noted swelling/bruising/redness. pt denies any complaints. puncture site dressed with gauze/tegaderm. no noted bleeding/oozing after removal.
== END 2020-12-02 10:19 | disposition home or self-care (01) ==
LOC: HO.MDS 10:18
PROVIDERS: Visit Provider Physician Assistant Medical
DX: Z45.2 Encounter for adjustment and management of vascular access device (principal); N39.0 Urinary tract infection, site not specified
CPT/HCPCS: 96365; J1335

== ENCOUNTER → 2020-12-20 15:02 | Outpatient (BNVA) | payer MEDICARE, SELFPAY | PROVIDERS: Visit Provider Internal Medicine | DX: N12 Tubulo-interstitial nephritis, not specified as acute or chronic (principal) | CPT/HCPCS: 99212 ==

== ENCOUNTER → 2021-01-07 11:14 | Outpatient (BNVA) | payer MEDICARE, SELFPAY | PROVIDERS: Visit Provider Urology | DX: N40.0 Benign prostatic hyperplasia without lower urinary tract symptoms (principal); N12 Tubulo-interstitial nephritis, not specified as acute or chronic | CPT/HCPCS: 99202 ==

== ENCOUNTER → 2021-02-10 10:00 | Outpatient (BNVA) | payer MEDICARE, SELFPAY | PROVIDERS: Visit Provider Urology | DX: N48.1 Balanitis (principal); N40.0 Benign prostatic hyperplasia without lower urinary tract symptoms | CPT/HCPCS: 52000; 99212 ==

== ENCOUNTER 2021-03-21 11:53 | Day surgery (SDC) | payer MEDICARE, SELFPAY ==
[2021-03-21 13:24] VITALS: BMI 25.8
[2021-03-21 13:41] VITALS: BP 192/90; PULSE 70; RESP 16; TEMP 36.5; O2SAT 99
--- NOTE | 2021-03-21 14:52 | P.CONAN_ITS ---
HPI - Anesthesia Eval Consult details Narrative: 70 M for circumcision hypertensive , secondory to anxiety [facility] Active Problems Active Problems: All Active Problems (Updated 03/21/21 @ 13:48 by Janeen Yarbrough RN) BPH (benign prostatic hyperplasia) (Acute) Pyelonephritis (Acute) Balanitis (Acute) Past Medical History Medical History (Updated 03/21/21 @ 13:48 by Janeen Yarbrough RN) BPH (benign prostatic hyperplasia) Cigarette smoker GERD (gastroesophageal reflux disease) HTN (hypertension) Functional capacity: independent ambulation Family History Family history of problems with anesthesia: No Surgical History Surgical History (Updated 03/21/21 @ 13:46 by Janeen Yarbrough RN) Hx of colonoscopy No history of previous surgery History of Problems with Anesthesia: No Social History Social History Household Members: Children Housing: House Do you presently have visiting nurse or other home services: No Alcohol intake: current Alcohol intake frequency: former alcohol drinker Patient Tobacco Use Status: Current everyday Tobacco user Tobacco use type: Cigarette Cigarette Packs Per Day: 0.5 Cigarettes Per Day: 15 Use of substances other than those prescribed or required for medical reasons: No Are you DNR?: No Advance Directives: No Advance Directives Information Provided: Yes service: No Current occupational status: disabled Meds Allergies Allergy/AdvReac Type Severity Reaction Status Date / Time No Known Allergies Allergy Verified 03/21/21 13:23 [No Known Allergies*] Exam Exam Date and Time: March 21, 2021 1452 Height,Weight and Vital Signs: Height 5 ft 10 in Weight 81.647 kg Last Vital Signs Temp 97.7 F 03/21/21 13:41 Pulse 70 03/21/21 13:41 Resp 16 03/21/21 13:41 BP 192/90 H 03/21/21 13:41 Pulse Ox 99 03/21/21 13:41 Airway Mallampati Class: IV Denture: Upper Loose/Missing/Broken Teeth: Yes Heart: rrr Lungs: bl breath sounds Assessment and Plan Assessment Anesthesia Assessment: Anesthesia Plan Discussed and Smoking Cess. Discussed Final Anesthetic Review Family History of Problems with Anesthesia: No History of Problems with Anesthesia: No ASA Class: II, and Emergency Final Preanesthetic Review: Meds/Allgs Chart Reviewed and Anes Risks/Benef Reviewed Patient Risk: Intermediate Procedure Risk: Intermediate Anesthetic Plan Anesthetic Plan: GA Disposition: Standard PACU
--- NOTE | 2021-03-21 15:11 | MHC.SHP ---
Pre-Procedural Eval Section A Date of Service: 03/21/21 The patient is an INPATIENT: No Changes since office visit: No Cold of Flu in the past 2 weeks, No New Medical Problems, No Changes in Medication and No Patient answered all questions The History & Physical has been completed within 30 days and I have reviewed it.: Yes Section B Chief Complaint: balanitis Allergies: Allergies Allergy/AdvReac Type Severity Reaction Status Date / Time No Known Allergies Allergy Verified 03/21/21 13:23 [No Known Allergies*] Plan Diagnosis/Plan: Unchanged ( circumcision) I have reviewed the history and physical and performed a pertinent physical examination on my patient. No changes have occurred unless specified.
--- NOTE | 2021-03-21 15:11 | MHC.SHP ---
Pre-Procedural Eval Section A Date of Service: 03/21/21 Section B Chief Complaint: balanitis Details of Present Illness: balanitis difficulty retracting foreskin Relevant Social History: None Present Medications: see Short Stay Collaborative assessment Medical History: No relevant PMH History of Previous Operations: No relevant previous surgery Allergies: Allergies Allergy/AdvReac Type Severity Reaction Status Date / Time No Known Allergies Allergy Verified 03/21/21 13:23 [No Known Allergies*] Review of Systems Sugical H&P ROS: Negative: Constitution, Cardiovascular, Respiratory, Neurological, Psychiatric, Hem-Onc, Allergic/Immunologic, Gastrointestinal, Genitourinary, Musculoskeletal, Integumentary, Endocrine and Eyes/Ears/Nose/Throat Exam Surgical H&P Exam: Normal: HEENT, Normal: Heart, Normal: Lungs, Normal: Extremities, Normal: Abdomen, Normal: Skin and Normal: Neurological Plan I have reviewed the history and physical and performed a pertinent physical examination on my patient. No changes have occurred unless specified.
--- NOTE | 2021-03-21 16:44 | P.OP_ITS ---
Operative Note Operative Note Date of Service: 03/21/21 Narrative: PreOperative Diagnosis: Balanitis and phimosis Post Operative Diagnosis: Balanitis and phimosis Procedure: Circumcision Surgeon: Dr Kaerl Rios Anesthesia: General Indications for procedure: Recurring balanitis in inability to withdrawal foreskin of penile glans. Risks and benefits including bleeding, scarring, need for revision surgery been discussed. Procedure: After informed consent was verified the patient was brought to the operating room and placed in a supine position. Anesthesia was administered per protocol. The patient was prepped and draped sterile fashion. Safety pause time-out was performed. Antibiotics have been given. The penis was examined and proximal incision marked that lay just proximal to the resting position of the penile sulcus. This was followed around the circumference of the penis. A penile ring block was performed using 1% lidocai ne with no epinephrine. Approximately 8 cc. The proximal incision was developed with sharp blade running circumferentially around the penis. The skin was to give a 1 cm separation between the foreskin in the remaining penile shaft skin. The foreskin was withdrawn and the penile glans exposed. A a distal incision was made approximately 5 mm proximal to the penile sulcus. At the area of the frenulum care was taken to empty the penile frenulum intact. Using clamps the dorsal skin was elevated. Using Metzenbaum scissors the avascular plane was entered and proximal and distal incision were joined. The bridging skin was elevated and clamped. It was then divided using Bovie. The sleeve of tissue was then removed circumferentially around the penis using cautery in order to minimize bleeding. The shaft was then examined in any bleeding areas were controlled. More local anesthetic was injected into the plane beneath avascular plane to help with postprocedure pain management. The skin edges after they were appropriately examined low reapposed. A 3-0 chromic suture was placed at 12:00 o'clock and 06:00 o'clock positions. Interrupted 3-0 was then placed the 09:00 o'clock and 3 o'clock position. Each quadrant was then filled with 3 sutures using 4-0 chromic. At the completion of the procedure there was adequate hemostasis. The incision was washed and dried. Antibiotic cream was applied to the incision. A Mat wrap was applied followed by a Coban dressing. Xeroform gauze had been used to cover antibiotic ointment. He tolerated the procedure well and was extubated in the room and transferred in stable condition to the recovery area. Pathology: Foreskin Drains: none
[2021-03-21 16:55] VITALS: BP 137/65; PULSE 68; RESP 16; TEMP 36.7; O2SAT 98
[2021-03-21 17:00] VITALS: BP 126/86; PULSE 72; RESP 14; O2SAT 97
[2021-03-21 17:05] VITALS: BP 140/81; PULSE 78; RESP 14; O2SAT 98
[2021-03-21 17:10] VITALS: BP 156/92; PULSE 80; RESP 14; O2SAT 97
[2021-03-21 17:25] VITALS: BP 161/96; PULSE 73; RESP 16; TEMP 36.7; O2SAT 97
== END 2021-03-21 17:37 | disposition home or self-care (01) ==
PROVIDERS: Visit Provider Urology
PROC: (CPT 54161; principal; 2021-03-21 13:10)
DX: N48.1 Balanitis (principal); N47.1 Phimosis; N40.0 Benign prostatic hyperplasia without lower urinary tract symptoms; I10 Essential (primary) hypertension; Z79.899 Other long term (current) drug therapy; F17.210 Nicotine dependence, cigarettes, uncomplicated
CPT/HCPCS: 54161; 88304; J0690; J1100; J1170; J2250; J2405; J3010

== ENCOUNTER 2021-04-14 10:19 | Outpatient (REF) | payer MEDICARE, SELFPAY | END 2021-04-14 10:20 | disposition home or self-care (01) | LOC: HO.LNP 10:19 | PROVIDERS: PCP Internal Medicine; Visit Provider Urology | DX: N39.0 Urinary tract infection, site not specified (principal); N48.1 Balanitis | CPT/HCPCS: 87086; 99212 ==

== ENCOUNTER → 2021-05-26 10:09 | Outpatient (BNVA) | payer MEDICARE, SELFPAY | PROVIDERS: PCP Internal Medicine; Visit Provider Urology | DX: Z13.89 Encounter for screening for other disorder (principal) ==

== ENCOUNTER → 2021-06-08 13:09 | Outpatient (BNVA) | payer MEDICARE, SELFPAY | PROVIDERS: Visit Provider Urology | DX: N40.0 Benign prostatic hyperplasia without lower urinary tract symptoms (principal); N39.0 Urinary tract infection, site not specified; N12 Tubulo-interstitial nephritis, not specified as acute or chronic | CPT/HCPCS: Q3014 ==

== ENCOUNTER 2021-09-06 11:06 | Outpatient (REF) | payer MEDICARE, MEDICAID, SELFPAY ==
--- NOTE | ~2021-09-06 | XR_ITS ---
EXAMINATION: XR CHEST CLINICAL INFORMATION: Shortness of breath COMPARISON: Previous chest x-ray October 2020 TECHNIQUE: 2 views of the chest were obtained. FINDINGS: The cardiac and mediastinal contours are stable. The lungs are clear. There is no pleural effusion or pneumothorax. Bony structures are unremarkable. XR/XR chest 2V IMPRESSION: No evidence for acute disease in the chest.
== END 2021-09-06 11:07 | disposition home or self-care (01) ==
LOC: HO.XRAY 11:06
PROVIDERS: PCP Registered Nurse; Visit Provider Registered Nurse
DX: R06.02 Shortness of breath (principal)
CPT/HCPCS: 71046

== ENCOUNTER → 2021-12-14 10:03 | Outpatient (BNVA) | payer MEDICARE, MEDICAID, SELFPAY | PROVIDERS: PCP Registered Nurse; Visit Provider Urology | DX: N40.1 Benign prostatic hyperplasia with lower urinary tract symptoms (principal); N13.8 Other obstructive and reflux uropathy; R33.8 Other retention of urine; N39.0 Urinary tract infection, site not specified; Z79.899 Other long term (current) drug therapy | CPT/HCPCS: 51798; 99212 ==

== ENCOUNTER 2022-01-27 12:18 | Outpatient (REF) | payer MEDICARE, MEDICAID, SELFPAY ==
--- NOTE | ~2022-01-27 | CT_ITS ---
EXAMINATION: CT CHEST SCREENING CLINICAL INFORMATION: Current smoker. 57 pack year history. COMPARISON: Previous chest x-ray most recent August 2021 and abdomen and pelvis CT October 2020 TECHNIQUE: Multidetector volumetric CT imaging of the chest is performed without contrast using low dose technique. Additional 2D coronal and sagittal reformatted images and axial 3D maximum intensity projection (MIP) images are generated on the CT workstation. This CT examination was performed using dose optimization techniques as appropriate, variously including the following: *Automated exposure control *Adjustment of mA and/or kV according to patient size (this includes techniques or standardized protocols for targeted exams where dose is matched to indication/reason for exam; i.e. extremities or head) *Use of iterative reconstruction technique DLP: 56 mGy-cm FINDINGS: LUNGS: There is evidence of emphysema. There is a 2 mm calcified right upper lobe nodule axial image 79 series 5. There are small clustered peribronchial nodules in the right upper lobe largest measuring 2 mm for example axial image 122 series 5. Suggestive of tree-in-bud appearance or airways disease. There is a 3 mm peripheral or subpleural right middle lobe nodule axial image 257 series 5. There is a 3 mm peripheral or subpleural right middle lobe nodule axial image 308 series 5. There is a 2 mm peripheral or subpleural lingular nodule axial image 365. No endobronchial or endotracheal lesion. MEDIASTINUM: The mediastinum is normal. CORONARY ARTERY CALCIFICATION: Mild PLEURA: There is no pleural effusion. No pleural mass or thickening. AXILLA: No lymphadenopathy. UPPER ABDOMEN: Diverticulosis of the colon. Stable 1 cm low-attenuation lesion in the left lobe of the liver axial image 58 series 3 probably representing a cyst. OSSEOUS STRUCTURES: Unremarkable. CT/CT lung screening IMPRESSION: Emphysema. Small pulmonary nodules. Mild coronary artery calcification. ASSESSMENT: Lung-RADS category 2: Benign RECOMMENDATION: Annual low-dose chest CT follow-up recommended.
== END 2022-01-27 12:19 | disposition home or self-care (01) ==
LOC: HO.CT 12:18
PROVIDERS: PCP Registered Nurse; Visit Provider Physician Assistant Medical
DX: Z12.2 Encounter for screening for malignant neoplasm of respiratory organs (principal); F17.210 Nicotine dependence, cigarettes, uncomplicated
CPT/HCPCS: 71271

== ENCOUNTER → 2022-03-07 11:10 | Outpatient (BNVA) | payer MEDICARE, MEDICAID, SELFPAY | PROVIDERS: PCP Internal Medicine Geriatric Medicine; Visit Provider Physician Assistant Medical | DX: F17.210 Nicotine dependence, cigarettes, uncomplicated (principal) | CPT/HCPCS: G0296 ==

== ENCOUNTER 2022-03-09 12:20 | Emergency (ER) | payer MEDICARE, MEDICAID, SELFPAY ==
--- NOTE | ~2022-03-09 | CT_ITS ---
EXAMINATION: CT HEAD WITHOUT CONTRAST CLINICAL INFORMATION: Confusion, visual changes, speech disturbance. COMPARISON: No similar priors. TECHNIQUE: Contiguous axial imaging was performed from the skull base to vertex without intravenous administration of contrast. This CT examination was performed using dose optimization techniques as appropriate, variously including the following: *Automated exposure control *Adjustment of mA and/or kV according to patient size (this includes techniques or standardized protocols for targeted exams where dose is matched to indication/reason for exam; i.e. extremities or head) *Use of iterative reconstruction technique DLP: 717 mGy-cm FINDINGS: Nonspecific hypodensity in the in the left anterior aspect of the corpus callosum (8:51). There is no evidence of acute intracranial hemorrhage or edematous territorial infarction. A few foci of hypoattenuation in the periventricular and deep white matter are consistent with mild microangiopathy. [place]ou[place]-white matter differentiation is preserved. Proportional prominence of the ventricles and sulcal spaces. No evidence for obstructive hydrocephalus. No abnormal mass effect or midline shift. No extra-axial fluid collections. No acute soft tissue or osseous abnormalities. The mastoid air cells and paranasal sinuses are clear. CT/CT head/brain wo IV con IMPRESSION: Indeterminate hypodensity abutting the left anterior corpus callosum. Recommend further evaluation with an MR of the brain. No evidence of acute intracranial hemorrhage or edematous territorial infarction.
--- NOTE | ~2022-03-09 | CT_ITS ---
EXAMINATION: CT ANGIOGRAM HEAD AND NECK CLINICAL INFORMATION: TIA symptoms COMPARISON: Noncontrast head CT performed earlier the same date TECHNIQUE: Test bolus sequences followed by intravenous administration of 70 mL of Omnipaque 350 intravenous contrast. Helical imaging was performed in the axial plane from the mediastinum to the skull vertex. Delayed postcontrast imaging of the head was also performed. The data was processed at the polysomnography technologist's workstation for generation of MIP sequences. Three-dimensional volume rendered reformatted images were also generated at an offline 3-D workstation. This CT examination was performed using dose optimization techniques as appropriate, variously including the following: *Automated exposure control *Adjustment of mA and/or kV according to patient size (this includes techniques or standardized protocols for targeted exams where dose is matched to indication/reason for exam; i.e. extremities or head) *Use of iterative reconstruction technique DLP: 1603 mGy-cm FINDINGS: HEAD: No intra or extra-axial fluid collection, hemorrhage, or mass. No midline shift or herniation. No ventriculomegaly. Basal cisterns are patent. [place]ou[place]-white matter differentiation is maintained. Mild generalized cerebral volume loss. Prominent sulci. Small focus of hypoattenuation within the superior margin of the anterior left lateral ventricle likely due to remote small lacunar infarct/insult. No abnormal intracranial enhancement. Major dural venous sinuses enhance normally. Paranasal sinuses and mastoid air cells normally aerated. SOFT TISSUES AND LUNG APICES: Globes and retro-orbital structures are unremarkable. Normal appearance of the financial sales associate spaces and parapharyngeal fat. Major salivary glands are unremarkable. Bilateral thyroid nodules measuring approximately 2.3 cm on the right and 2.1 cm in size in the left. No mucosal space mass. Large and structures are unremarkable. No cervical lymphadenopathy. Mild centrilobular emphysema. Visualized upper lungs otherwise clear. No acute fracture or suspicious osseous lesion. NECK CTA: Normal caliber aortic arch. Widely patent arch origins with normal three-vessel configuration. Slightly beaded contour of the upper cervical vertebral artery suggesting fibromuscular dysplasia. Short segment fenestration versus focal dissection less likely the left vertebral artery at the C3 level. Common carotid arteries bilaterally patent. Mild matrix calcified and noncalcified plaque at the carotid bifurcations and along the proximal ICAs left greater than right without significant stenosis. Cervical segments of the ICAs are patent. CRANIAL CTA: Posterior circulation: Intradural vertebral arteries are patent. Patent bilateral PICA's. Patent bilateral AICAs and basilar artery. Superior cerebellar arteries patent. it administrator are patent. Left P1 segment appears diminutive/hypoplastic. Patent bilateral posterior communicating arteries. Anterior circulation: The petrous segments of the internal carotid arteries are patent. Mild atherosclerotic irregularity of the cavernous segments without significant stenosis. Supraclinoid ICAs patent without aneurysm. Bilateral posterior communicating arteries without aneurysm. Bilateral anterior cerebral arteries and MCAs patent. No stenosis or aneurysm. No vascular cut off/occlusion identified. Anterior communicating artery not clearly displayed. CT/CT angio head neck IMPRESSION: 1. No intracranial hemorrhage, mass, or acute territorial infarct. 2. No vascular cut off, aneurysm, or vascular malformation. 3. Mild atherosclerotic disease of the carotid bifurcations and cavernous segments of the internal carotid arteries without significant stenosis. 4. Slightly beaded contour of the upper cervical vertebral arteries suggesting fibromuscular dysplasia. Short segment fenestration versus less likely focal dissection of the left vertebral artery at the C3 level. 5. Bilateral thyroid nodules measuring approximately 2.3 cm on the right and 2.1 cm on the left. Suggest nonemergent thyroid ultrasound for evaluation.
--- NOTE | ~2022-03-09 | XR_ITS ---
EXAMINATION: XR CHEST CLINICAL INFORMATION: Confusion COMPARISON: 09/06/2021 TECHNIQUE: Frontal view of the chest was obtained. FINDINGS: The lungs are well expanded. There is no focal consolidation, edema, or effusion. No pneumothorax. The cardiomediastinal silhouette is within normal limits of size with a tortuous aorta. No acute osseous abnormality. XR/XR chest 1V IMPRESSION: No acute pulmonary disease.
[2022-03-09 12:52] VITALS: BP 165/104; PULSE 66; RESP 18; TEMP 36.7; O2SAT 99; BMI 22.9
--- NOTE | 2022-03-09 12:52 | ECG_ITS ---
Test Reason : general weakness Blood Pressure : / mmHG Vent. Rate : 064 BPM Atrial Rate : 064 BPM P-R Int : 138 ms QRS Dur : 094 ms QT Int : 404 ms P-R-T Axes : 037 -39 079 degrees QTc Int : 416 ms Normal sinus rhythm Left anterior fascicular block Nonspecific T wave abnormality Abnormal ECG No previous ECGs available Referred By: Lacy Lara Electronically Signed By:BRITTNEY LOCO MD
--- NOTE | 2022-03-09 12:52 | ED.GENADULT ---
HPI - General Adult General Chief complaint: General Medical Stated complaint: disorented blurred speach Time Seen by Provider: 03/09/22 18:51 Related Data Previous Rx's Medication Instructions Recorded amlodipine 5 mg tablet 5 mg PO DAILY 30 days #30 tabs 11/19/20 omeprazole 20 mg capsule,delayed 20 mg PO DAILY #30 caps 11/19/20 release tramadol 50 mg tablet 50 mg PO Q6H PRN pain (scale score 03/21/21 4-6) #14 tabs sulfamethoxazole 800 1 tab PO BID 5 days #10 tabs 03/29/21 mg-trimethoprim 160 mg tablet (Bactrim DS) terazosin 10 mg capsule 10 mg PO BEDTIME 90 days #90 caps 07/13/21 Allergies Allergy/AdvReac Type Severity Reaction Status Date / Time No Known Allergies Allergy Verified 12/14/21 08:20 [No Known Allergies*] PMFSH Past Medical History Medical History BPH (benign prostatic hyperplasia) GERD (gastroesophageal reflux disease) HTN (hypertension) Nicotine dependence, cigarettes, uncomplicated Surgical History History of circumcision Hx of colonoscopy Social History Social History Household Members: Children Housing: House Do you presently have visiting nurse or other home services: No Alcohol intake: former Patient Tobacco Use Status: Current everyday Tobacco user Tobacco use type: Cigarette Years Smoked: (onset 17yo, 1ppd x 54yrs, 50PYH) Smoked in Last 30 Days: Yes Use of substances other than those prescribed or required for medical reasons: No Advance Directives: No Advance Directives Information Provided: Yes service: No Current occupational status: disabled Physical Exam ED Vital Signs: Vital Signs - 24 hr 03/09/22 17:41 03/09/22 18:31 03/09/22 20:20 Temperature 97.8 F 97.7 F Pulse Rate 69 68 71 Respiratory Rate 18 12 15 Blood Pressure 174/96 H 153/81 H 131/74 Pulse Oximetry 97 97 97 Oxygen Delivery Method Room Air Room Air Room Air 03/09/22 22:30 Temperature 98.2 F Pulse Rate 62 Respiratory Rate 14 Blood Pressure 149/79 H Pulse Oximetry 98 Oxygen Delivery Method Room Air BMI result Body Mass Index 22.9 Course Course Course Narrative: KASSIE--71-year-old male with a past medical history BPH, CAD, HTN, cigarette smoking, presenting to the ED complaining visual changes, confusion, & speech difficulty since yesterday. Admits has happened 4 or 5 times in the past. Asymptomatic at present. Denies taking anticoagulation Ambulating with steady gait in triage. Speech clear. EKG, labs, head CT ordered in triage Medications Administered Discontinued Medications Generic Name Dose Route Start Last Admin Trade Name Elvira PRN Reason Stop Dose Admin Iohexol 100 ml 03/09/22 22:10 03/09/22 22:10 Iohexol 350 Mg/Ml 100 Ml Infus..Btl IV 03/09/22 22:11 70 ml ONCE ONE Administration Medical Decision Making Lab Data Result diagrams: 03/09/22 13:21 03/09/22 13:21 Labs: Lab Results 03/09/22 03/09/22 03/09/22 Range/Units 13:21 13:21 13:21 WBC 8.1 (4.8-10.8) X10*3/uL RBC 5.81 H (4.60-5.80) X10*6/uL Hgb 17.8 (14.0-18.0) g/dl Hct 53.7 H (42.0-52.0) % MCV 92.4 (80.0-98.0) fL MCH 30.6 (27.0-33.0) pg MCHC 33.1 (31.0-36.0) g/dl RDW 13.5 (11.0-16.0) % Plt Count 290 (160-400) X10*3/uL MPV 11.0 (9.4-12.4) fL Immature Gran % (Auto) 0.2 (0.0-0.4) % Neut % (Auto) 68.6 (45-73) % Lymph % (Auto) 22.9 (20-40) % [place] % (Auto) 6.5 (2-11) % Eos % (Auto) 1.1 (0-4) % Baso % (Auto) 0.7 (0-2) % Lymph # (Auto) 1.9 (1.2-4.9) X10*3/uL [place] # (Auto) 0.5 (0.1-1.2) X10*3/uL Eos # (Auto) 0.1 (0.0-0.4) X10*3/uL Baso # (Auto) 0.1 (0.0-0.2) X10*3/uL Abs Immat Gran (auto) 0.02 (0.00-0.03) X10*3/uL Absolute Neuts (auto) 5.6 (2.0-8.3) x10*3/uL Absolute Nucleated RBC 0.000 (0.0-0.012) X10*3/uL Nucleated RBC % (auto) 0.0 (0.0-0.2) /100WBC PT 10.5 (10.0-13.1) SEC INR 0.9 (0.9-1.1) Sodium 138 (135-145) mmol/L Potassium 4.6 D (3.3-5.1) mmol/L Chloride 105 (96-108) mmol/L Carbon Dioxide 19 L (22-29) mmol/L Anion Gap 19 (12-20) BUN 12 (9-16) mg/dL Creatinine 0.95 (0.5-1.4) mg/dL Estim Creat Clear Calc 72.1 Estimated GFR > 60 Random Glucose 106 (60-115) mg/dL Calcium 9.3 D (8.4-10.2) mg/dL Magnesium 2.2 (1.6-2.6) mg/dL Total Bilirubin 0.6 (0.0-1.0) mg/dL Direct Bilirubin 0.2 (0.0-0.5) mg/dL AST 23 (5-37) U/L ALT 22 (0-40) U/L Alkaline Phosphatase 110 (39-117) U/L Troponin I High Sens (<3.5-35.0) ng/L Total Protein 8.1 H D (6.5-8.0) g/dL Albumin 4.9 D (3.5-5.0) g/dL Urine Color Urine Appearance Urine pH (5.0-9.0) Ur Specific [place] (1.005-1.025) Urine Protein (Neg-Trace) mg/dL Urine Glucose (UA) (Negative) mg/dL Urine Ketones (Negative) mg/dL Urine Blood (Negative) Urine Nitrite (Negative) Ur Leukocyte Esterase (Negative) COVID-19 (UZAIR) (Negative) COVID-19 Clin Com 03/09/22 03/09/22 03/09/22 Range/Units 13:21 13:21 20:35 WBC (4.8-10.8) X10*3/uL RBC (4.60-5.80) X10*6/uL Hgb (14.0-18.0) g/dl Hct (42.0-52.0) % MCV (80.0-98.0) fL MCH (27.0-33.0) pg MCHC (31.0-36.0) g/dl RDW (11.0-16.0) % Plt Count (160-400) X10*3/uL MPV (9.4-12.4) fL Immature Gran % (Auto) (0.0-0.4) % Neut % (Auto) (45-73) % Lymph % (Auto) (20-40) % [place] % (Auto) (2-11) % Eos % (Auto) (0-4) % Baso % (Auto) (0-2) % Lymph # (Auto) (1.2-4.9) X10*3/uL [place] # (Auto) (0.1-1.2) X10*3/uL Eos # (Auto) (0.0-0.4) X10*3/uL Baso # (Auto) (0.0-0.2) X10*3/uL Abs Immat Gran (auto) (0.00-0.03) X10*3/uL Absolute Neuts (auto) (2.0-8.3) x10*3/uL Absolute Nucleated RBC (0.0-0.012) X10*3/uL Nucleated RBC % (auto) (0.0-0.2) /100WBC PT (10.0-13.1) SEC INR (0.9-1.1) Sodium (135-145) mmol/L Potassium (3.3-5.1) mmol/L Chloride (96-108) mmol/L Carbon Dioxide (22-29) mmol/L Anion Gap (12-20) BUN (9-16) mg/dL Creatinine (0.5-1.4) mg/dL Estim Creat Clear Calc Estimated GFR Random Glucose (60-115) mg/dL Calcium (8.4-10.2) mg/dL Magnesium (1.6-2.6) mg/dL Total Bilirubin (0.0-1.0) mg/dL Direct Bilirubin (0.0-0.5) mg/dL AST (5-37) U/L ALT (0-40) U/L Alkaline Phosphatase (39-117) U/L Troponin I High Sens < 3.5 (<3.5-35.0) ng/L Total Protein (6.5-8.0) g/dL Albumin (3.5-5.0) g/dL Urine Color Yellow Urine Appearance Clear Urine pH 6.0 (5.0-9.0) Ur Specific [place] 1.025 (1.005-1.025) Urine Protein Trace (Neg-Trace) mg/dL Urine Glucose (UA) Negative (Negative) mg/dL Urine Ketones Negative (Negative) mg/dL Urine Blood Negative (Negative) Urine Nitrite Negative (Negative) Ur Leukocyte Esterase Negative (Negative) COVID-19 (UZAIR) Negative (Negative) COVID-19 Clin Com See Note 03/09/22 Range/Units 20:42 WBC (4.8-10.8) X10*3/uL RBC (4.60-5.80) X10*6/uL Hgb (14.0-18.0) g/dl Hct (42.0-52.0) % MCV (80.0-98.0) fL MCH (27.0-33.0) pg MCHC (31.0-36.0) g/dl RDW (11.0-16.0) % Plt Count (160-400) X10*3/uL MPV (9.4-12.4) fL Immature Gran % (Auto) (0.0-0.4) % Neut % (Auto) (45-73) % Lymph % (Auto) (20-40) % [place] % (Auto) (2-11) % Eos % (Auto) (0-4) % Baso % (Auto) (0-2) % Lymph # (Auto) (1.2-4.9) X10*3/uL [place] # (Auto) (0.1-1.2) X10*3/uL Eos # (Auto) (0.0-0.4) X10*3/uL Baso # (Auto) (0.0-0.2) X10*3/uL Abs Immat Gran (auto) (0.00-0.03) X10*3/uL Absolute Neuts (auto) (2.0-8.3) x10*3/uL Absolute Nucleated RBC (0.0-0.012) X10*3/uL Nucleated RBC % (auto) (0.0-0.2) /100WBC PT (10.0-13.1) SEC INR (0.9-1.1) Sodium (135-145) mmol/L Potassium (3.3-5.1) mmol/L Chloride (96-108) mmol/L Carbon Dioxide (22-29) mmol/L Anion Gap (12-20) BUN (9-16) mg/dL Creatinine (0.5-1.4) mg/dL Estim Creat Clear Calc Estimated GFR Random Glucose (60-115) mg/dL Calcium (8.4-10.2) mg/dL Magnesium (1.6-2.6) mg/dL Total Bilirubin (0.0-1.0) mg/dL Direct Bilirubin (0.0-0.5) mg/dL AST (5-37) U/L ALT (0-40) U/L Alkaline Phosphatase (39-117) U/L Troponin I High Sens < 3.5 (<3.5-35.0) ng/L Total Protein (6.5-8.0) g/dL Albumin (3.5-5.0) g/dL Urine Color Urine Appearance Urine pH (5.0-9.0) Ur Specific [place] (1.005-1.025) Urine Protein (Neg-Trace) mg/dL Urine Glucose (UA) (Negative) mg/dL Urine Ketones (Negative) mg/dL Urine Blood (Negative) Urine Nitrite (Negative) Ur Leukocyte Esterase (Negative) COVID-19 (UZAIR) (Negative) COVID-19 Clin Com Discharge Plan Discharge Clinical Impression: TIA (transient ischemic attack), Expressive aphasia Patient Disposition: Home, Self-Care Instructions: Transient Ischemic Attack (ED) Additional Instructions: Aspirin 325 mg daily. You do have a small area of calcification on your CT scan. It is recommended that you get an MRI as an outpatient. The radiologist also noted nodules on the thyroid, which would require an outpatient ultrasound. Be sure to follow-up tomorrow morning with your primary care doctor as these issues need follow-up. Aspirina 325 mg diarios. Tiene valorie kenyatta?a ?severiano de calcificaci?n en murray tomograf?a computarizada. Se recomienda que se sha valorie resonancia magn?chepe trupti paciente ambulatorio. El radi?logo tambi?n not? n?dulos en la tiroides, lo que requerir?a valorie ecograf?a ambulatoria. Aseg?rese de hacer un seguimiento ma?larissa por la ma?larissa con murray m?dico de atenci?n primaria, ya que estos problemas necesitan seguimiento. Prescriptions: No Action sulfamethoxazole-trimethoprim [Bactrim DS] 800-160 mg tablet 1 tab PO BID 5 Days Qty: 10 0RF terazosin 10 mg capsule 10 mg PO BEDTIME 90 Days Qty: 90 3RF amlodipine 5 mg Tablet 5 mg PO DAILY 30 Days Qty: 30 0RF Protocol: Hold for SBP< HOLD for SBP < : 90 omeprazole 20 mg capsule,delayed release(DR/EC) 20 mg PO DAILY Qty: 30 0RF tramadol 50 mg tablet 50 mg PO Q6H PRN (Reason: pain (scale score 4-6)) Qty: 14 0RF Interventions: ED Discharge Assessment Last Done: 03/10/22 00:20 Discharge Date/Time: 03/10/22 00:22 Print Language: Nepalese
[2022-03-09 13:33] LABS: MANUAL DIFF FLAG NO
[2022-03-09 13:35] LABS: Basophils Absolute Auto 0.1 X10*3/uL (0.0-0.2); Basophils Percent Auto 0.7 % (0-2); Eosinophils Absolute Auto 0.1 X10*3/uL (0.0-0.4); Eosinophils Percent Auto 1.1 % (0-4); Hematocrit 53.7 % (42.0-52.0); Hemoglobin 17.8 g/dl (14.0-18.0); Imm Gran Abs Auto 0.02 X10*3/uL (0.00-0.03); Imm Gran Pct Auto 0.2 % (0.0-0.4); Lymphocytes Absolute Auto 1.9 X10*3/uL (1.2-4.9); Lymphocytes Percent Auto 22.9 % (20-40); Mean Corpuscular HGB Conc 33.1 g/dl (31.0-36.0); Mean Corpuscular Hemoglobin 30.6 pg (27.0-33.0); Mean Corpuscular Volume 92.4 fL (80.0-98.0); Monocytes Absolute Auto 0.5 X10*3/uL (0.1-1.2); Monocytes Percent Auto 6.5 % (2-11); Neutrophils Absolute Auto 5.6 x10*3/uL (2.0-8.3); Neutrophils Percent Auto 68.6 % (45-73); Platelet Count 290 X10*3/uL (160-400); Red Blood Count 5.81 X10*6/uL (4.60-5.80); Red Cell Distribution Width 13.5 % (11.0-16.0); White Blood Count 8.1 X10*3/uL (4.8-10.8)
[2022-03-09 13:43] LABS: INTERNATIONAL NORM RATIO 0.9 (0.9-1.1); Prothrombin Time 10.5 SEC (10.0-13.1)
[2022-03-09 13:49] LABS: COVID-19 Test Negative (Negative)
[2022-03-09 14:04] LABS: Troponin-I High Sensitivity < 3.5 ng/L (<3.5-35.0)
[2022-03-09 14:13] LABS: Alanine Aminotransferase 22 U/L (0-40); Albumin Level 4.9 g/dL (3.5-5.0); Alkaline Phosphatase 110 U/L (39-117); Anion Gap 19 (12-20); Aspartate Amino Transferase 23 U/L (5-37); Bilirubin Direct 0.2 mg/dL (0.0-0.5); Bilirubin Total 0.6 mg/dL (0.0-1.0); Blood Urea Nitrogen 12 mg/dL (9-16); Calcium 9.3 mg/dL (8.4-10.2); Carbon Dioxide 19 mmol/L (22-29); Chloride 105 mmol/L (96-108); Creatinine Clr Calc Pharmacy 72.1; Estimated Glomerular Filt Rate > 60; Glucose Random 106 mg/dL (60-115); Magnesium 2.2 mg/dL (1.6-2.6); Potassium 4.6 mmol/L (3.3-5.1); Sodium 138 mmol/L (135-145); Total Protein 8.1 g/dL (6.5-8.0)
[2022-03-09 17:41] VITALS: BP 174/96; PULSE 69; RESP 18; O2SAT 97
[2022-03-09 18:31] VITALS: BP 153/81; PULSE 68; RESP 12; TEMP 36.6; O2SAT 97
--- NOTE | 2022-03-09 19:40 | ED_ITS ---
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 According to the patient's , yesterday he had an episode of ?eye blinking? which was associated with some expressive aphasia. This lasted approximately 1-3 minutes, and resolved spontaneously. The patient's states that he had similar episodes in past week. The patient states that he knows he was unable to talk. Currently, the patient states he feels back to normal, and has no symptoms. Severity: mild Related Data Previous Rx's Medication Instructions Recorded amlodipine 5 mg tablet 5 mg PO DAILY 30 days #30 tabs 11/19/20 omeprazole 20 mg capsule,delayed 20 mg PO DAILY #30 caps 11/19/20 release tramadol 50 mg tablet 50 mg PO Q6H PRN pain (scale score 03/21/21 4-6) #14 tabs sulfamethoxazole 800 1 tab PO BID 5 days #10 tabs 03/29/21 mg-trimethoprim 160 mg tablet (Bactrim DS) terazosin 10 mg capsule 10 mg PO BEDTIME 90 days #90 caps 07/13/21 Allergies Allergy/AdvReac Type Severity Reaction Status Date / Time No Known Allergies Allergy Verified 12/14/21 08:20 [No Known Allergies*] Review of Systems Review of Systems: Yes all other systems are reviewed and are negative Constitutional: Constitutional: Denies chills, Denies fever(s), Denies malaise and Denies weakness Eyes: Eyes: Denies blurry vision, Reports change in vision and Denies eye discharge ENT: Reports system reviewed and no additional complaints, except as documented, Denies vertigo and Denies dizziness Cardiovascular: Cardiovascular: Denies syncope, Denies rapid heart rate, D enies lightheadedness, Denies Loss of Consciousness and Denies dyspnea Respiratory: Respiratory: Denies cough, Denies dyspnea and Denies wheezing Gastrointestinal: Gastrointestinal: Reports no additional gastrointestinal complaints Genitourinary: Genitourinary: Reports no additional male genitourinary complaints Musculoskeletal: Musculoskeletal: Denies back pain, Denies muscle weakness, Denies numbness and Denies tingling Neurologic: Reports Abnormal speech present, Denies confusion, Denies vertigo, Denies dizziness, Denies syncope, Denies numbness, Denies tingling and Denies weakness Psychiatric: Psychiatric: Denies confusion Allergic/Immunologic: Allergic/Immunologic: Denies wheezing PMFSH Past Medical History Medical History BPH (benign prostatic hyperplasia) GERD (gastroesophageal reflux disease) HTN (hypertension) Nicotine dependence, cigarettes, uncomplicated Surgical History History of circumcision Hx of colonoscopy Social History Social History Household Members: Children Housing: House Do you presently have visiting nurse or other home services: No Alcohol intake: former Patient Tobacco Use Status: Current everyday Tobacco user Tobacco use type: Cigarette Years Smoked: (onset 17yo, 1ppd x 54yrs, 50PYH) Smoked in Last 30 Days: Yes Use of substances other than those prescribed or required for medical reasons: No Advance Directives: No Advance Directives Information Provided: Yes service: No Current occupational status: disabled Physical Exam ED Vital Signs: Vital Signs - 24 hr 03/09/22 12:52 03/09/22 17:41 03/09/22 18:31 Temperature 98.1 F 97.8 F Pulse Rate 66 69 68 Respiratory Rate 18 18 12 Blood Pressure 165/104 H 174/96 H 153/81 H Pulse Oximetry 99 97 97 Oxygen Delivery Method Room Air Room Air Room Air 03/09/22 20:20 03/09/22 22:30 Temperature 97.7 F 98.2 F Pulse Rate 71 62 Respiratory Rate 15 14 Blood Pressure 131/74 149/79 H Pulse Oximetry 97 98 Oxygen Delivery Method Room Air Room Air BMI result Body Mass Index 22.9 Vital signs normal except patient's blood pressure is noted to be somewhat hypertensive initially Const General: cooperative, healthy appearing, comfortable and no acute distress; No c onfusion Nutritional Appearance: average body habitus Orientation/consciousness: patient oriented x3 and No confusion HENMT Head: Yes normal to inspection, Yes normocephalic and Yes atraumatic Ears: hearing grossly normal bilaterally and external ears normal General nose exam: Normal external nose present Face and sinus: Yes normal facial exam and Yes face symmetric Mouth: Normal oral and palatal mucosa present Eyes General: appearance normal, both eyes and all related structures Eyelids: Yes eyelids normal Conjunctivae: conjunctivae normal Sclerae: sclerae normal Pupils: Equal, round and reactive pupils present EOM: EOMs intact bilaterally Neck Neck: Yes normal visual inspection, Yes full ROM and Yes supple Chest Chest palpation & inspection: normal inspection of the chest Resp Effort & Inspection: normal respiratory effort, able to speak in complete sentences, no cough and no respiratory distress Cardio Rate: regular rate Rhythm: regular rhythm GI Inspection: Yes normal to inspection and No obesity Back/Spine/Pelvis Cervical Spine: normal cervical lordosis and cervical ROM normal Skin General skin exam: no rashes or lesions noted, no erythema, no mottling and no pallor Neuro General: patient oriented x3 and No confusion Cranial nerves: Yes CN's II-XII intact bilaterally and Yes Equal, round and reactive pupils present Speech: Abnormal speech present Gait exam (Neuro): Normal gait present Motor exam (neuro): 5/5 motor strength present throughout Extrem General: No no pedal edema, No cyanosis and No edema Medications Administered Discontinued Medications Generic Name Dose Route Start Last Admin Trade Name Freq PRN Reason Stop Dose Admin Iohexol 100 ml 03/09/22 22:10 03/09/22 22:10 Iohexol 350 Mg/Ml 100 Ml Infus..Btl IV 03/09/22 22:11 70 ml ONCE ONE Administration Medical Decision Making MDM Narrative Medical decision making narrative: 71-year-old male with symptoms of expressive aphasia which lasted for less than 1 minute earlier today. No other clear neurological signs at that time. CT head and CTA of the head and neck were performed here in the ER both of which are negative. There is a small hypodense area seen in the corpus callosum on CT with an MRI recommended for follow-up, but this would not explain his symptoms. ABCD2 score for TIA 3?points Per the validation study, 0-3 points: Low Risk 2-Day Stroke Risk: 1.0% 7-Day Stroke Risk: 1.2% 90-Day Stroke Risk: 3.1% As the patient is totally asymptomatic at this time, and has an ABCD2 score of 3, which is low risk. , the patient will be discharged home. He is instructed to take aspirin once a day. And is advised to follow up tomorrow morning with his primary care physician. He will be given appropriate discharge instructions Medical Records Medical records reviewed: Yes I reviewed the patient's medical records. Lab Data Lab results reviewed: Yes I reviewed the patient's lab results. Lab results narrative: CBC, chemistry normal with the exception of a hematocrit slightly elevated at 53.7 Result diagrams: 03/09/22 13:21 03/09/22 13:21 Labs: Lab Results 03/09/22 03/09/22 03/09/22 Range/Units 13:21 13:21 13:21 WBC 8.1 (4.8-10.8) X10*3/uL RBC 5.81 H (4.60-5.80) X10*6/uL Hgb 17.8 (14.0-18.0) g/dl Hct 53.7 H (42.0-52.0) % MCV 92.4 (80.0-98.0) fL MCH 30.6 (27.0-33.0) pg MCHC 33.1 (31.0-36.0) g/dl RDW 13.5 (11.0-16.0) % Plt Count 290 (160-400) X10*3/uL MPV 11.0 (9.4-12.4) fL Immature Gran % (Auto) 0.2 (0.0-0.4) % Neut % (Auto) 68.6 (45-73) % Lymph % (Auto) 22.9 (20-40) % [place] % (Auto) 6.5 (2-11) % Eos % (Auto) 1.1 (0-4) % Baso % (Auto) 0.7 (0-2) % Lymph # (Auto) 1.9 (1.2-4.9) X10*3/uL [place] # (Auto) 0.5 (0.1-1.2) X10*3/uL Eos # (Auto) 0.1 (0.0-0.4) X10*3/uL Baso # (Auto) 0.1 (0.0-0.2) X10*3/uL Abs Immat Gran (auto) 0.02 (0.00-0.03) X10*3/uL Absolute Neuts (auto) 5.6 (2.0-8.3) x10*3/uL Absolute Nucleated RBC 0.000 (0.0-0.012) X10*3/uL Nucleated RBC % (auto) 0.0 (0.0-0.2) /100WBC PT 10.5 (10.0-13.1) SEC INR 0.9 (0.9-1.1) Sodium 138 (135-145) mmol/L Potassium 4.6 D (3.3-5.1) mmol/L Chloride 105 (96-108) mmol/L Carbon Dioxide 19 L (22-29) mmol/L Anion Gap 19 (12-20) BUN 12 (9-16) mg/dL Creatinine 0.95 (0.5-1.4) mg/dL Estim Creat Clear Calc 72.1 Estimated GFR > 60 Random Glucose 106 (60-115) mg/dL Calcium 9.3 D (8.4-10.2) mg/dL Magnesium 2.2 (1.6-2.6) mg/dL Total Bilirubin 0.6 (0.0-1.0) mg/dL Direct Bilirubin 0.2 (0.0-0.5) mg/dL AST 23 (5-37) U/L ALT 22 (0-40) U/L Alkaline Phosphatase 110 (39-117) U/L Troponin I High Sens (<3.5-35.0) ng/L Total Protein 8.1 H D (6.5-8.0) g/dL Albumin 4.9 D (3.5-5.0) g/dL Urine Color Urine Appearance Urine pH (5.0-9.0) Ur Specific [place] (1.005-1.025) Urine Protein (Neg-Trace) mg/dL Urine Glucose (UA) (Negative) mg/dL Urine Ketones (Negative) mg/dL Urine Blood (Negative) Urine Nitrite (Negative) Ur Leukocyte Esterase (Negative) COVID-19 (UZAIR) (Negative) COVID-19 Clin Com 03/09/22 03/09/22 03/09/22 Range/Units 13:21 13:21 20:35 WBC (4.8-10.8) X10*3/uL RBC (4.60-5.80) X10*6/uL Hgb (14.0-18.0) g/dl Hct (42.0-52.0) % MCV (80.0-98.0) fL MCH (27.0-33.0) pg MCHC (31.0-36.0) g/dl RDW (11.0-16.0) % Plt Count (160-400) X10*3/uL MPV (9.4-12.4) fL Immature Gran % (Auto) (0.0-0.4) % Neut % (Auto) (45-73) % Lymph % (Auto) (20-40) % [place] % (Auto) (2-11) % Eos % (Auto) (0-4) % Baso % (Auto) (0-2) % Lymph # (Auto) (1.2-4.9) X10*3/uL [place] # (Auto) (0.1-1.2) X10*3/uL Eos # (Auto) (0.0-0.4) X10*3/uL Baso # (Auto) (0.0-0.2) X10*3/uL Abs Immat Gran (auto) (0.00-0.03) X10*3/uL Absolute Neuts (auto) (2.0-8.3) x10*3/uL Absolute Nucleated RBC (0.0-0.012) X10*3/uL Nucleated RBC % (auto) (0.0-0.2) /100WBC PT (10.0-13.1) SEC INR (0.9-1.1) Sodium (135-145) mmol/L Potassium (3.3-5.1) mmol/L Chloride (96-108) mmol/L Carbon Dioxide (22-29) mmol/L Anion Gap (12-20) BUN (9-16) mg/dL Creatinine (0.5-1.4) mg/dL Estim Creat Clear Calc Estimated GFR Random Glucose (60-115) mg/dL Calcium (8.4-10.2) mg/dL Magnesium (1.6-2.6) mg/dL Total Bilirubin (0.0-1.0) mg/dL Direct Bilirubin (0.0-0.5) mg/dL AST (5-37) U/L ALT (0-40) U/L Alkaline Phosphatase (39-117) U/L Troponin I High Sens < 3.5 (<3.5-35.0) ng/L Total Protein (6.5-8.0) g/dL Albumin (3.5-5.0) g/dL Urine Color Yellow Urine Appearance Clear Urine pH 6.0 (5.0-9.0) Ur Specific [place] 1.025 (1.005-1.025) Urine Protein Trace (Neg-Trace) mg/dL Urine Glucose (UA) Negative (Negative) mg/dL Urine Ketones Negative (Negative) mg/dL Urine Blood Negative (Negative) Urine Nitrite Negative (Negative) Ur Leukocyte Esterase Negative (Negative) COVID-19 (UZAIR) Negative (Negative) COVID-19 Clin Com See Note 03/09/22 Range/Units 20:42 WBC (4.8-10.8) X10*3/uL RBC (4.60-5.80) X10*6/uL Hgb (14.0-18.0) g/dl Hct (42.0-52.0) % MCV (80.0-98.0) fL MCH (27.0-33.0) pg MCHC (31.0-36.0) g/dl RDW (11.0-16.0) % Plt Count (160-400) X10*3/uL MPV (9.4-12.4) fL Immature Gran % (Auto) (0.0-0.4) % Neut % (Auto) (45-73) % Lymph % (Auto) (20-40) % [place] % (Auto) (2-11) % Eos % (Auto) (0-4) % Baso % (Auto) (0-2) % Lymph # (Auto) (1.2-4.9) X10*3/uL [place] # (Auto) (0.1-1.2) X10*3/uL Eos # (Auto) (0.0-0.4) X10*3/uL Baso # (Auto) (0.0-0.2) X10*3/uL Abs Immat Gran (auto) (0.00-0.03) X10*3/uL Absolute Neuts (auto) (2.0-8.3) x10*3/uL Absolute Nucleated RBC (0.0-0.012) X10*3/uL Nucleated RBC % (auto) (0.0-0.2) /100WBC PT (10.0-13.1) SEC INR (0.9-1.1) Sodium (135-145) mmol/L Potassium (3.3-5.1) mmol/L Chloride (96-108) mmol/L Carbon Dioxide (22-29) mmol/L Anion Gap (12-20) BUN (9-16) mg/dL Creatinine (0.5-1.4) mg/dL Estim Creat Clear Calc Estimated GFR Random Glucose (60-115) mg/dL Calcium (8.4-10.2) mg/dL Magnesium (1.6-2.6) mg/dL Total Bilirubin (0.0-1.0) mg/dL Direct Bilirubin (0.0-0.5) mg/dL AST (5-37) U/L ALT (0-40) U/L Alkaline Phosphatase (39-117) U/L Troponin I High Sens < 3.5 (<3.5-35.0) ng/L Total Protein (6.5-8.0) g/dL Albumin (3.5-5.0) g/dL Urine Color Urine Appearance Urine pH (5.0-9.0) Ur Specific [place] (1.005-1.025) Urine Protein (Neg-Trace) mg/dL Urine Glucose (UA) (Negative) mg/dL Urine Ketones (Negative) mg/dL Urine Blood (Negative) Urine Nitrite (Negative) Ur Leukocyte Esterase (Negative) COVID-19 (UZAIR) (Negative) COVID-19 Clin Com Imaging Data CT and CTA of the head and neck: Radiologist's impression: Head CT IMPRESSION: Indeterminate hypodensity abutting the left anterior corpus callosum. Recommend further evaluation with an MR of the brain. CTA head and neck IMPRESSION: 1.? No intracranial hemorrhage, mass, or acute territorial infarct. 2.? No vascular cut off, aneurysm, or vascular malformation. 3.? Mild atherosclerotic disease of the carotid bifurcations and cavernous segments of the internal carotid arteries without significant stenosis. 4.? Slightly beaded contour of the upper cervical vertebral arteries suggesting fibromuscular dysplasia. Short segment fenestration versus less likely focal dissection of the left vertebral artery at the C3 level. 5.? Bilateral thyroid nodules measuring approximately 2.3 cm on the right and 2.1 cm on the left. Suggest nonemergent thyroid ultrasound for evaluation ECG Data Attestation: I personally reviewed and interpreted this ECG as follows: Interpretation: Normal sinus rhythm at 64, with a left anterior fascicular block, normal axis, normal NE interval, no significant ST or T-wave changes Scores Additional Scores ABCD2 Score: Score: 3, low risk. Comment: Two days stroke risk 1%, 7 day stroke risk 1.2%, 90 day stroke risk 3.1% Discharge Plan Discharge Clinical Impression: TIA (transient ischemic attack), Expressive aphasia Patient Disposition: Home, Self-Care Instructions: Transient Ischemic Attack (ED) Additional Instructions: Aspirin 325 mg daily. You do have a small area of calcification on your CT scan. It is recommended that you get an MRI as an outpatient. The radiologist also noted nodules on the thyroid, which would require an outpatient ultrasound. Be sure to follow-up tomorrow morning with your primary care doctor as these issues need follow-up. Aspirina 325 mg diarios. Tiene valorie kenaytta?a ?severiano de calcificaci?n en murray tomograf?a computarizada. Se recomienda que se sha valorie resonancia magn?chepe trupti paciente ambulatorio. El radi?logo tambi?n not? n?dulos en la tiroides, lo que requerir?a valorie ecograf?a ambulatoria. Aseg?rese de hacer un seguimiento ma?larissa por la ma?larissa con murray m?dico de atenci?n primaria, ya que estos problemas necesitan seguimiento. Prescriptions: No Action sulfamethoxazole-trimethoprim [Bactrim DS] 800-160 mg tablet 1 tab PO BID 5 Days Qty: 10 0RF terazosin 10 mg capsule 10 mg PO BEDTIME 90 Days Qty: 90 3RF amlodipine 5 mg Tablet 5 mg PO DAILY 30 Days Qty: 30 0RF Protocol: Hold for SBP< HOLD for SBP < : 90 omeprazole 20 mg capsule,delayed release(DR/EC) 20 mg PO DAILY Qty: 30 0RF tramadol 50 mg tablet 50 mg PO Q6H PRN (Reason: pain (scale score 4-6)) Qty: 14 0RF Print Language: Welsh
--- NOTE | 2022-03-09 20:03 | PC.NURSE ---
Patient's states that he was blinking rapidly and she grew concerned. Patient states that he was aware he was blinking rapidly but it was involuntary. He tried to speak as this took place and he couldn't. Onset yesterday. State of confusion is intermittent. Patient's states he seemed more confused yesterday when he wasn't able to get the words out when he was blinking rapidly. The rapid blinking lasted for over a minute. Patient denies any pain. This nurse observed the patient ambulate safely to the restroom with steady gait. Before the patient could supply a urine sample per order he returned stating he was unable to unscrew the lid. Assistance was required to unscrew the cap for him as he was not able to do so himself. Patient denies feelings of weakness. Patient states he has been sleeping more than normal, however feels like he is sleeping well. During the state of confusion patient's and patient state that he while he was unable to verbalize his thoughts he was not oriented place. Patient states he has never had this occur before. Patient denies any falls. Patient has hx of htn, hyperlipidemia, and prostate issues but is not very clear on what those issues may be aside from his prostate being enlarged. Patient states that he is compliant with taking his meds for htn and hyperlipidemia and keeps up to date with all his appointments (urologist and primary care).
[2022-03-09 20:20] VITALS: BP 131/74; PULSE 71; RESP 15; TEMP 36.5; O2SAT 97
--- NOTE | 2022-03-09 20:26 | PC.NURSE ---
Patient states that while confused it lasts hours.
--- NOTE | 2022-03-09 20:27 | PC.NURSE ---
Patient now states that this occurred about three months ago but it was not as severe as yesterday.
[2022-03-09 20:52] LABS: Appearance Urine Clear; Color Urine Yellow; Glucose Urine UA Negative (Negative); Leukocyte Esterase Urine Negative (Negative); Nitrite Urine Negative (Negative); Specific Gravity - Urine 1.025 (1.005-1.025); Urine Blood Negative (Negative); Urine Ketones Negative (Negative); Urine Protein Trace mg/dL (Neg-Trace)
[2022-03-09 21:12] LABS: Troponin-I High Sensitivity < 3.5 ng/L (<3.5-35.0)
--- NOTE | 2022-03-09 21:31 | PC.NURSE ---
IV access established R arm 20g.
[2022-03-09] MEDS: iohexoL 350 MG/ML 100 ML INFUS..BTL IV (22:10)
[2022-03-09 22:30] VITALS: BP 149/79; PULSE 62; RESP 14; TEMP 36.8; O2SAT 98
== END 2022-03-10 00:22 | disposition home or self-care (01) ==
PROVIDERS: Physician Assistant; Emergency Provider Emergency Medicine
DX: G45.9 Transient cerebral ischemic attack, unspecified (principal); F80.1 Expressive language disorder; R41.0 Disorientation, unspecified; F17.210 Nicotine dependence, cigarettes, uncomplicated; Z71.6 Tobacco abuse counseling; Z79.899 Other long term (current) drug therapy; Z20.822 Contact with and (suspected) exposure to COVID-19
CPT/HCPCS: 36415; 70450; 70496; 70498; 71045; 80048; 80076; 81003; 83735; 84484; 85025; 85610; 87635; 93005; 99284; 99285; Q9967

== ENCOUNTER 2022-03-30 08:43 | Outpatient (REF) | payer MEDICARE, MEDICAID, SELFPAY ==
--- NOTE | ~2022-03-30 | MR_ITS ---
EXAMINATION: MR BRAIN WITHOUT CONTRAST CLINICAL INFORMATION: TIA COMPARISON: CTA head and neck 03/09/2022 TECHNIQUE: Multiplanar multisequence MR imaging of the brain was obtained without intravenous contrast. FINDINGS: There is no acute infarct on diffusion-weighted imaging. There is no intracranial hemorrhage on iron-sensitive imaging. No extra-axial collection or mass effect/herniation. Normal parenchymal signal characteristics. Chronic lacunar infarct in the left anterior centrum semiovale. No hydrocephalus. The ventricles are normal in morphology and size. The major flow voids at the skull base are preserved. The midline structures are normal. The cerebellar tonsils are normally positioned. The craniocervical junction is normal. Marrow signal is within normal limits. The visualized soft tissues are without significant abnormality. No signal abnormality within the paranasal sinuses or within the mastoid air cells. MR/MR head/brain wo con IMPRESSION: Chronic lacunar infarct involving the anterior left centrum semiovale. Otherwise unremarkable noncontrast MRI of the brain.
== END 2022-03-30 08:44 | disposition home or self-care (01) ==
LOC: HO.MRI 08:43
PROVIDERS: Visit Provider Student in an Organized Health Care Education/Training Program
DX: R90.89 Other abnormal findings on diagnostic imaging of central nervous system (principal)
CPT/HCPCS: 70551

== ENCOUNTER 2022-06-22 12:58 | Outpatient (REF) | payer MEDICARE, MEDICAID, SELFPAY ==
[2022-06-22 14:34] LABS: Prostate Specific Antigen 2.12 ng/mL (<0.05-4.0)
== END 2022-06-22 12:59 | disposition home or self-care (01) ==
LOC: HO.LAB 12:58
PROVIDERS: PCP Registered Nurse; Visit Provider Urology
DX: N40.1 Benign prostatic hyperplasia with lower urinary tract symptoms (principal); N13.8 Other obstructive and reflux uropathy; Z12.5 Encounter for screening for malignant neoplasm of prostate
CPT/HCPCS: 36415; 84153

== ENCOUNTER → 2022-06-29 09:33 | Outpatient (BNVA) | payer MEDICARE, MEDICAID, SELFPAY | PROVIDERS: PCP Registered Nurse; Visit Provider Urology | DX: N40.0 Benign prostatic hyperplasia without lower urinary tract symptoms (principal); N30.90 Cystitis, unspecified without hematuria; N12 Tubulo-interstitial nephritis, not specified as acute or chronic | CPT/HCPCS: 51798; 99212 ==

== ENCOUNTER 2022-09-04 13:19 | Outpatient (REF) | payer MEDICARE, MEDICAID, SELFPAY ==
--- NOTE | ~2022-09-04 | US_ITS ---
EXAMINATION: US THYROID CLINICAL INFORMATION: Goiter/multiple thyroid nodules. COMPARISON: None available. TECHNIQUE: Linear transducer grayscale and color Doppler examination with attention to the region of the thyroid. FINDINGS: SIZE: Measurements of the thyroid lobes and nodules are given in sagittal, anteroposterior and transverse dimensions respectively. Right Thyroid Lobe: 6.2 x 3.2 x 2.7 cm, volume 27.3 mL. Parenchyma: The gland echotexture is homogeneous. Thyroid vascularity is normal. Left Thyroid Lobe: 6.2 x 2.1 x 2.3 cm, volume 16.2 mL. Parenchyma: The gland echotexture is homogeneous. Thyroid vascularity is normal. Isthmus: 0.3 cm in maximum AP dimension. Estimated total number of nodules greater than or equal to 1 cm: 2. Nurse Staff nodules are described as follows: 1. Location: Right inferior. Size: 2.3 x 1.8 x 1.8 cm, volume 3.81 mL. Nodule characteristics: Composition: Solid/almost completely solid (2). Echogenicity: Isoechoic (1). Shape: Not taller than wide (0). Margins: Smooth (0). Echogenic Foci: None (0). ACR TI-RADS total points: 3 ACR TI-RADS category: 3 2. Location: Right mid. Size: 0.8 x 0.8 x 0.5 cm, volume 0.149 mL. Nodule characteristics: Composition: Mixed cystic and solid (1). Echogenicity: Hypoechoic (2). Shape: Not taller than wide (0). Margins: Smooth (0). Echogenic Foci: None (0). ACR TI-RADS total points: 3 ACR TI-RADS category: 3 3. Location: Left inferior. Size: 2.1 x 2.3 x 1.7 cm, volume 4.18 mL. Nodule characteristics: Composition: Solid/almost completely solid (2). Echogenicity: Hypoechoic (2). Shape: Not taller than wide (0). Margins: Smooth (0). Echogenic Foci: None (0). ACR TI-RADS total points: 4 ACR TI-RADS category: 4 4. Location: Left mid. Size: 0.9 x 0.7 x 0.7 cm, volume 0.239 mL. Nodule characteristics: Composition: Solid/almost completely solid (2). Echogenicity: Isoechoic (1). Shape: Not taller than wide (0). Margins: Smooth (0). Echogenic Foci: Punctate echogenic foci (3). ACR TI-RADS total points: 6 ACR TI-RADS category: 4 5. Location: Left mid. Size: 0.6 x 0.6 x 0.5 cm, volume 0.09 mL. Nodule characteristics: Composition: Solid/almost completely solid (2). Echogenicity: Hypoechoic (2). Shape: Not taller than wide (0). Margins: Echogenic Foci: None (0). ACR TI-RADS total points: 4 ACR TI-RADS category: 4 NODES: No lymphadenopathy is seen in the tissue surrounding the thyroid gland. US/US thyroid IMPRESSION: 1. There is a diffuse goiter, right lobe greater than left. 2. A 2.3 cm in maximal diameter left thyroid lower pole nodule meets ACR biopsy criteria and is amenable to ultrasound-guided biopsy, if clinically indicated and not already performed. ACR TI-RADS RECOMMENDATION REFERENCE: Ultrasound-guided fine-needle aspiration, followup ultrasound, no further follow up. * TR1 (0 point) and TR2 (2 points): No FNA or follow up. * TR3 (3 points): FNA if more than or equal to 2.5 cm in maximum dimension, followup ultrasound in 1, 3 and 5 years if 1.5 to 2.4 cm in maximum dimension. * TR4 (4-6 points): FNA if more than or equal to 1.5 cm in maximum dimension, followup ultrasound in 1, 2, 3 and 5 years if 1 to 1.4 cm in maximum dimension. * TR5 (more than or equal to 7 points): FNA if more than or equal to 1 cm in maximum dimension, followup ultrasound every year for 5 years if 0.5 to 0.9 cm in maximum dimension. * TR3, TR4 or TR5 nodules that are below the size threshold for followup receive no follow up.
== END 2022-09-04 13:20 | disposition home or self-care (01) ==
LOC: HO.US 13:19
PROVIDERS: Visit Provider Registered Nurse
DX: E04.2 Nontoxic multinodular goiter (principal)
CPT/HCPCS: 76536

== ENCOUNTER 2022-12-20 09:58 | Outpatient (REF) | payer MEDICARE, MEDICAID, SELFPAY ==
--- NOTE | ~2022-12-20 | XR_ITS ---
EXAMINATION: XR CHEST CLINICAL INFORMATION: Post viral Covid symptoms COMPARISON: 03/09/2022 and previous TECHNIQUE: 2 views of the chest were obtained. FINDINGS: The lungs are well expanded and clear of significant opacity. There is no active pleural disease. The heart and mediastinum are normal in size and contour. There is no vascular congestion. XR/XR chest 2V IMPRESSION: No active disease in the chest.
[2022-12-20 10:19] LABS: MANUAL DIFF FLAG NO
[2022-12-20 10:29] LABS: Basophils Percent Auto 0.4 % (0-2); Eosinophils Absolute Auto 0.2 X10*3/uL (0.0-0.4); Eosinophils Percent Auto 2.9 % (0-4); Hematocrit 43.8 % (42.0-52.0); Hemoglobin 14.6 g/dl (14.0-18.0); Imm Gran Abs Auto 0.08 X10*3/uL (0.00-0.03); Imm Gran Pct Auto 1.1 % (0.0-0.4); Lymphocytes Absolute Auto 1.7 X10*3/uL (1.2-4.9); Lymphocytes Percent Auto 21.8 % (20-40); Mean Corpuscular HGB Conc 33.3 g/dl (31.0-36.0); Mean Corpuscular Hemoglobin 30.1 pg (27.0-33.0); Mean Corpuscular Volume 90.3 fL (80.0-98.0); Mean Platelet Volume 9.5 fL (9.4-12.4); Monocytes Percent Auto 13.4 % (2-11); Neutrophils Absolute Auto 4.6 x10*3/uL (2.0-8.3); Neutrophils Percent Auto 60.4 % (45-73); Platelet Count 546 X10*3/uL (160-400); Red Blood Count 4.85 X10*6/uL (4.60-5.80); White Blood Count 7.6 X10*3/uL (4.8-10.8)
[2022-12-20 11:11] LABS: Alanine Aminotransferase 199 U/L (0-40); Alkaline Phosphatase 95 U/L (39-117); Anion Gap 15 (12-20); Aspartate Amino Transferase 71 U/L (5-37); Bilirubin Total 0.6 mg/dL (0.0-1.0); Blood Urea Nitrogen 11 mg/dL (9-16); Calcium 9.4 mg/dL (8.4-10.2); Carbon Dioxide 28 mmol/L (22-29); Chloride 98 mmol/L (96-108); Estimated Glomerular Filt Rate > 60; Glucose Random 146 mg/dL (60-115); Sodium 137 mmol/L (135-145); Total Protein 7.5 g/dL (6.5-8.0)
== END 2022-12-20 09:59 | disposition home or self-care (01) ==
LOC: HO.LAB 09:58
PROVIDERS: Absent Provider Registered Nurse; PCP Registered Nurse; Visit Provider Internal Medicine
DX: G93.31 Postviral fatigue syndrome (principal)
CPT/HCPCS: 36415; 71046; 80053; 85025

== ENCOUNTER 2022-12-27 09:56 | Outpatient (REF) | payer MEDICARE, MEDICAID, SELFPAY ==
[2022-12-27 14:33] LABS: Alanine Aminotransferase 42 U/L (0-40); Albumin Level 4.1 g/dL (3.5-5.0); Alkaline Phosphatase 81 U/L (39-117); Aspartate Amino Transferase 16 U/L (5-37); Bilirubin Direct 0.1 mg/dL (0.0-0.5); Bilirubin Total 0.4 mg/dL (0.0-1.0); Total Protein 7.1 g/dL (6.5-8.0)
== END 2022-12-27 09:57 | disposition home or self-care (01) ==
LOC: HO.CHCLDS 09:56
PROVIDERS: Visit Provider Internal Medicine
DX: R74.01 Elevation of levels of liver transaminase levels (principal)
CPT/HCPCS: 36415; 80076

== ENCOUNTER 2023-02-09 09:01 | Outpatient (REF) | payer MEDICARE, MEDICAID, SELFPAY ==
[2023-02-09 11:55] LABS: Alanine Aminotransferase 16 U/L (0-40); Albumin Level 4.4 g/dL (3.5-5.0); Alkaline Phosphatase 82 U/L (39-117); Anion Gap 12 (12-20); Aspartate Amino Transferase 18 U/L (5-37); Bilirubin Total 0.8 mg/dL (0.0-1.0); Blood Urea Nitrogen 12 mg/dL (9-16); Calcium 9.6 mg/dL (8.4-10.2); Carbon Dioxide 28 mmol/L (22-29); Chloride 102 mmol/L (96-108); Cholesterol 179 mg/dL (<200); Estimated Glomerular Filt Rate > 60; Glucose Random 135 mg/dL (60-115); HDL Cholesterol 45 mg/dL (>40); LDL Cholesterol Calculated 105 mg/dL (<100); Potassium 4.1 mmol/L (3.3-5.1); Sodium 138 mmol/L (135-145); Total Protein 7.5 g/dL (6.5-8.0); Triglycerides 146 mg/dL (<150)
[2023-02-09 12:13] LABS: TSH reflex Free T4 1.48 uIU/mL (0.32-4.0)
== END 2023-02-09 09:02 | disposition home or self-care (01) ==
LOC: HO.HHCL 09:01
PROVIDERS: Visit Provider Registered Nurse
DX: E04.2 Nontoxic multinodular goiter (principal); I10 Essential (primary) hypertension; R74.8 Abnormal levels of other serum enzymes
CPT/HCPCS: 36415; 80053; 80061; 84443

== ENCOUNTER 2023-04-18 11:26 | Emergency (ER) | payer MEDICARE, MEDICAID, SELFPAY ==
--- NOTE | ~2023-04-18 | XR_ITS ---
EXAMINATION: XR CHEST CLINICAL INFORMATION: Dizziness COMPARISON: 12/20/2022 TECHNIQUE: 2 views of the chest were obtained. FINDINGS: Elevated right hemidiaphragm stable. Clear. No pleural effusions. Heart and pulmonary vessels normal. XR/XR chest 2V IMPRESSION: No active disease.
--- NOTE | ~2023-04-18 | CT_ITS ---
EXAMINATION: CT HEAD WITHOUT CONTRAST CLINICAL INFORMATION: Dizziness. COMPARISON: 03/09/2022 TECHNIQUE: Contiguous axial imaging was performed from the skull base to vertex without intravenous administration of contrast. This CT examination was performed using dose optimization techniques as appropriate, variously including the following: *Automated exposure control *Adjustment of mA and/or kV according to patient size (this includes techniques or standardized protocols for targeted exams where dose is matched to indication/reason for exam; i.e. extremities or head) *Use of iterative reconstruction technique DLP: 648.5 mGy-cm FINDINGS: Underlying atrophy. Stable lacunar infarct left centrum semiovale. No evolving infarct, mass lesion, mass effect or midline shift seen. No hemorrhage or extra-axial fluid collections. Lens extractions have been performed. Mild rightward nasal septal deviation. Mild nasal cavity heterogeneous mucosal thickening. Sinuses and mastoids are free of disease. Bony structures are intact. Soft tissues are unremarkable. CT/CT head/brain wo IV con IMPRESSION: No acute intracranial pathology.
[2023-04-18 11:33] VITALS: BP 140/90; PULSE 120; O2SAT 95
--- NOTE | 2023-04-18 11:35 | ECG_ITS ---
Test Reason : DIZZINESS Blood Pressure : / mmHG Vent. Rate : 071 BPM Atrial Rate : 071 BPM P-R Int : 152 ms QRS Dur : 100 ms QT Int : 424 ms P-R-T Axes : 053 -12 033 degrees QTc Int : 460 ms Normal sinus rhythm Normal ECG When compared with ECG of 09-MAR-2022 12:57, No significant change was found Referred By: Generic ED Physician Electronically Signed By:KERMIT EDWARDS
[2023-04-18 11:37] VITALS: BMI 24.8
[2023-04-18 11:43] LABS: Glucose, Whole Blood 174 mg/dL (60-115)
--- NOTE | 2023-04-18 11:45 | PC.NURSE ---
pt a&o x4, calm, and cooperative. pt sts dizziness while in shower, did not pass out. N/V since. macedonian speaking. family at bedside. pt placed on bedside monitor. rr even/unlabored. plan of care ongoing.
[2023-04-18 11:51] LABS: MANUAL DIFF FLAG NO
[2023-04-18 11:52] LABS: Basophils Percent Auto 0.4 % (0-2); Eosinophils Absolute Auto 0.2 X10*3/uL (0.0-0.4); Eosinophils Percent Auto 2.1 % (0-4); Hematocrit 42.8 % (42.0-52.0); Hemoglobin 14.6 g/dl (14.0-18.0); Imm Gran Abs Auto 0.03 X10*3/uL (0.00-0.03); Imm Gran Pct Auto 0.3 % (0.0-0.4); Lymphocytes Absolute Auto 2.5 X10*3/uL (1.2-4.9); Lymphocytes Percent Auto 25.5 % (20-40); Mean Corpuscular HGB Conc 34.1 g/dl (31.0-36.0); Mean Corpuscular Hemoglobin 30.2 pg (27.0-33.0); Mean Corpuscular Volume 88.4 fL (80.0-98.0); Mean Platelet Volume 10.8 fL (9.4-12.4); Monocytes Absolute Auto 0.7 X10*3/uL (0.1-1.2); Monocytes Percent Auto 7.3 % (2-11); Neutrophils Absolute Auto 6.3 x10*3/uL (2.0-8.3); Neutrophils Percent Auto 64.4 % (45-73); Platelet Count 280 X10*3/uL (160-400); Red Blood Count 4.84 X10*6/uL (4.60-5.80); White Blood Count 9.7 X10*3/uL (4.8-10.8)
[2023-04-18 11:58] LABS: INTERNATIONAL NORM RATIO 0.9 (0.9-1.1); Prothrombin Time 11.3 SEC (11.1-13.3)
[2023-04-18] MEDS: ondansetron HCL 4 MG/2 ML VIAL IVPUSH (11:58)
[2023-04-18] MEDS: 0.9 % Sodium Chloride 1,000 ML 999 ML IV ×2 (11:58→14:29)
[2023-04-18 12:01] LABS: Partial Thromboplastin Time 26.2 SEC (26.0-36.4)
[2023-04-18 12:10] LABS: Alanine Aminotransferase 19 U/L (0-40); Albumin Level 4.3 g/dL (3.5-5.0); Alkaline Phosphatase 73 U/L (39-117); Anion Gap 14 (12-20); Aspartate Amino Transferase 23 U/L (5-37); Bilirubin Total 0.6 mg/dL (0.0-1.0); Blood Urea Nitrogen 18 mg/dL (9-16); Calcium 9.3 mg/dL (8.4-10.2); Carbon Dioxide 26 mmol/L (22-29); Chloride 103 mmol/L (96-108); Creatinine Clr Calc Pharmacy 62.7; Estimated Glomerular Filt Rate > 60; Glucose Random 201 mg/dL (60-115); Potassium 3.5 mmol/L (3.3-5.1); Sodium 139 mmol/L (135-145); Total Protein 7.1 g/dL (6.5-8.0)
[2023-04-18 12:12] VITALS: BP 137/72; PULSE 83; RESP 16; O2SAT 99
[2023-04-18 12:17] LABS: Troponin-I High Sensitivity < 2.7 ng/L (<3.5-35.0)
[2023-04-18 12:28] LABS: Influenza A PCR NEGATIVE (Negative); Influenza B PCR NEGATIVE (Negative); Resp Syncy Virus RNA Qual PCR NEGATIVE (Negative); SARS COV2 PCR INHOUSE NEGATIVE (Negative)
--- NOTE | 2023-04-18 13:23 | ED_ITS ---
HPI - General Adult General Chief complaint: Dizziness Stated complaint: DIZZY,VOMITING,NO PAIN PER EMS Time Seen by Provider: 04/18/23 13:22 Source: patient Mode of arrival: ambulatory Limitations: no limitations History of Present Illness HPI narrative: Patient is a 73 year old assigned male at with a history of BPH presenting to the emergency department today with lightheadedness, nausea, and vomiting. Patient states that he was in the shower when he got lightheaded and nauseous then vomited. Patient denies any abdominal pain, fever, chills, blurry vision, double vision, loss of vision, chest pain, difficulty breathing, shortness of breath, back pain, night sweats, pain with urination, increased urinary frequency, increased urinary urgency, blood in his urine or stool, syncope or a near syncopal episode, recent trauma or falls, bowel incontinence, bladder incontinence, bowel retention, bladder retention, or any other complaints at this time. Onset (ago): minute(s) Severity: mild Severity scale (1-10): 3 Relieving factors: none Exacerbating factors: none Associated symptoms: nausea/vomiting Treatments prior to arrival: none Related Data Home Medications Medication Instructions Recorded Confirmed amlodipine 10 mg tablet 10 mg PO DAILY 06/29/22 olmesartan 5 mg tablet 5 mg PO QAM 06/29/22 Previous Rx's Medication Instructions Recorded omeprazole 20 mg capsule,delayed 20 mg PO DAILY #30 caps 11/19/20 release terazosin 10 mg capsule 10 mg PO BEDTIME 90 days #90 caps 07/13/21 ondansetron 4 mg disintegrating 4 mg PO Q8H 3 days #9 tabs 04/18/23 tablet Allergies Allergy/AdvReac Type Severity Reaction Status Date / Time No Known Allergies Allergy Verified 06/29/22 09:36 [No Known Allergies*] Review of Systems 2 Constitutional: Constitutional: Reports no additional constitutional complaints, Denies chills, Denies fever(s) and Denies night sweats Eyes: Eyes: Reports no additional eye complaints, Denies blurry vision, Denies change in vision, Denies diplopia, Denies eye discharge, Denies loss of vision and Denies eye pain Cardiovascular: Cardiovascular: Reports no additional cardiovascular complaints, Denies chest pain, Denies lightheadedness, Denies Loss of Consciousness and Denies dyspnea Respiratory: Respiratory: Reports no additional respiratory complaints and Denies dyspnea Gastrointestinal: Gastrointestinal: Reports no additional gastrointestinal complaints, Denies abdominal pain, Denies melena, Denies hematochezia, Denies change in bowel habits, Denies change in stool character, Reports nausea and Reports vomiting Genitourinary: Genitourinary: Reports no additional male genitourinary complaints, Denies hematuria, Denies oliguria, Denies difficulty urinating, Denies dysuria, Denies urinary frequency, Denies urinary hesitancy, Denies urinary incontinence and Denies urinary urgency Musculoskeletal: Musculoskeletal: Reports no additional musculoskeletal complaints, Denies numbness and Denies tingling Neurologic: Denies loss of vision, Denies numbness and Denies tingling C omments: lightheadedness Psychiatric: Psychiatric: Reports no additional psychiatric complaints Endocrine: Endocrine: Reports no additional endocrine complaints Hematologic/Lymphatic: Hematologic/Lymphatic: Reports no additional hematologic/lymphatic complaints Allergic/Immunologic: Allergic/Immunologic: Reports no additional allergic/immunologic complaints PMFSH Past Medical History Attestation statement: The following information was validated with the patient. Source: old records reviewed and nursing notes reviewed Medical History Nicotine dependence, cigarettes, uncomplicated BPH (benign prostatic hyperplasia) GERD (gastroesophageal reflux disease) HTN (hypertension) Surgical History History of circumcision Hx of colonoscopy Social History Social History Household Members: Children Housing: House Do you presently have visiting nurse or other home services: No Alcohol intake: former Patient Tobacco Use Status: Current everyday Tobacco user Tobacco use type: Cigarette Years Smoked: (onset 17yo, 1ppd x 54yrs, 50PYH) Advance Directives: No Advance Directives Information Provided: Yes service: No Current occupational status: disabled Physical Exam ED Vital Signs: Vital Signs - 24 hr 04/18/23 12:12 04/18/23 13:53 Pulse Rate 83 67 Respiratory Rate 16 16 Blood Pressure 137/72 123/71 Pulse Oximetry 99 99 Oxygen Delivery Method Room Air Room Air BMI result Body Mass Index 24.8 Const General: cooperative, no acute distress, alert and awake Nutritional Appearance: well nourished Orientation/consciousness: patient oriented x3 Limitations: no limitations HENMT Head: Yes normal to inspection and Yes atraumatic Ears: hearing grossly normal bilaterally and external ears normal General nose exam: Normal external nose present, no nasal discharge noted and no epistaxis Face and sinus: Yes normal facial exam, No abrasion and No laceration Mouth: Normal oral and palatal mucosa present, no drooling and no muffled voice Eyes General: appearance normal, both eyes and all related structures Periorbital: periorbital findings normal Eyelids: Yes eyelids normal Conjunctivae: conjunctivae normal Pupils: Equal, round and reactive pupils present EOM: EOMs intact bilaterally Neck Neck: Yes normal visual inspection, Yes full ROM and Yes no lymphadenopathy Chest Chest palpation & inspection: normal inspection of the chest Resp Effort & Inspection: normal respiratory effort and able to speak in complete sentences Auscultation: clear to auscultation bilaterally Cardio Rate: regular rate Rhythm: regular rhythm GI Inspection: Yes normal to inspection Neuro General: patient oriented x3 and moves all extremities Cranial nerves: Yes Equal, round and reactive pupils present Cognition (Neuro): normal cognition Motor exam (neuro): 5/5 motor strength present throughout Sensory Exam: Normal double simultaneous stimulation for sensation Coordination: frfthe-wy-dilc test normal Extrem General: Yes normal to inspection, Yes full ROM and Yes capillary refill normal Psych Appearance: grossly normal Mental Status: mental status grossly normal Affect: normal affect Attitude: cooperative Thought process: Normal thought process present Thought content: Normal thought content present Insight: Good insight present (Psych) Medications Administered Generic Name Dose Route Start Last Admin Trade Name Freq PRN Reason Stop Dose Admin Sodium Chloride 1,000 mls @ 999 mls/hr 04/18/23 14:30 04/18/23 14:29 Ns IV 04/18/23 15:30 999 mls/hr .Q1H1M MELLO Administration Discontinued Medications Generic Name Dose Route Start Last Admin Trade Name Freq PRN Reason Stop Dose Admin Sodium Chloride 1,000 mls @ 999 mls/hr 04/18/23 12:00 04/18/23 14:02 Ns IV 04/18/23 13:00 Infused .Q1H1M MELLO Infusion Ondansetron HCl 4 mg 04/18/23 11:52 04/18/23 11:58 Ondansetron Hcl 4 Mg/2 Ml Vial IVPUSH 04/18/23 11:53 4 mg ONCE ONE Administration Medical Decision Making Medical Decision Making MDM Narrative: Patient is a 73 year old assigned male at with a history of BPH presenting to the emergency department today after an episode of nausea, vomiting, and lightheadedness. Patient's physical exam was unremarkable. Patient's blood work showed a mildly elevated blood sugar at 201. I spoke with the patient and his family at the bed side who said the patient has a family history of diabetes but no personal history of diabetes. Obtained a hemoglobin A1C and beta- hydroxybutyrate. Patient's hemoglobin A1C was 6.1% and beta-hydroxybutyrate was 0.20. Patient's labs are consistent with type 2 diabetes however, the patient's clinical presentation is not consistent with DKA or an emergent diabetic pathology. Rather, patient's clinical presentation is more consistent with a viral illness. Patient's urine showed no acute process. Patient's EKG was unremarkable. Patient's chest x-ray and head CT showed no acute process. I explained my physical exam findings as well as all test results to the patient and the patient's family at the bed side. I answered all questions asked by the patient and the patient's family at the bed side. Patient received IV fluids and Zofran which he stated helped his symptoms significantly. I stressed the importance of the patient taking his medication as prescribed. I stressed the importance of the patient following up with his primary care provider. I stressed the importance of the patient returning to the emergency department immediately if his symptoms were to worsen or if he were to develop any dizziness, shortness of breath, difficulty breathing, chest pain, blurry vision, loss of vision, nausea, vomiting, abdominal pain, fever, chills, back pain, or any other complaints. Patient and the patient's family verbalized agreement and understanding with this treatment plan and discharge. Differential Diagnosis Differential Diagnoses: The differential diagnosis associated with the presentation includes Viral illness COVID-19 Influenza RSV Gastroenteritis Vasovagal episode Diabetes DKA Admission/Observation Consideration of admission/observation: Escalation of care including admission/observation considered Patient would have been admitted to the hospital had his work up had any findings where hospital admission was appropriate and his clinical presentation warranted hospital admission. Lab Data [facility] Lab Attestation statement: I reviewed the patient's lab results. My interpretation of these results are in the [facility] Rationale portion of this note. 04/18/23 11:46 04/18/23 11:46 Labs: Lab Results 04/18/23 04/18/23 04/18/23 Range/Units 11:40 11:42 11:46 WBC 9.7 (4.8-10.8) X10*3/uL RBC 4.84 (4.60-5.80) X10*6/uL Hgb 14.6 (14.0-18.0) g/dl Hct 42.8 (42.0-52.0) % MCV 88.4 (80.0-98.0) fL MCH 30.2 (27.0-33.0) pg MCHC 34.1 (31.0-36.0) g/dl RDW 13.0 (11.0-16.0) % Plt Count 280 D (160-400) X10*3/uL MPV 10.8 (9.4-12.4) fL Immature Gran % (Auto) 0.3 (0.0-0.4) % Neut % (Auto) 64.4 (45-73) % Lymph % (Auto) 25.5 (20-40) % [place] % (Auto) 7.3 (2-11) % Eos % (Auto) 2.1 (0-4) % Baso % (Auto) 0.4 (0-2) % Lymph # (Auto) 2.5 (1.2-4.9) X10*3/uL [place] # (Auto) 0.7 (0.1-1.2) X10*3/uL Eos # (Auto) 0.2 (0.0-0.4) X10*3/uL Baso # (Auto) 0.0 (0.0-0.2) X10*3/uL Abs Immat Gran (auto) 0.03 (0.00-0.03) X10*3/uL Absolute Neuts (auto) 6.3 (2.0-8.3) x10*3/uL Absolute Nucleated RBC 0.000 (0.0-0.012) X10*3/uL Nucleated RBC % (auto) 0.0 (0.0-0.2) /100WBC PT 11.3 (11.1-13.3) SEC INR 0.9 (0.9-1.1) APTT 26.2 (26.0-36.4) SEC Sodium 139 (135-145) mmol/L Potassium 3.5 (3.3-5.1) mmol/L Chloride 103 (96-108) mmol/L Carbon Dioxide 26 (22-29) mmol/L Anion Gap 14 (12-20) BUN 18 H (9-16) mg/dL Creatinine 1.10 (0.5-1.4) mg/dL Estim Creat Clear Calc 62.7 Estimated GFR > 60 POC Glucose 174 H (60-115) mg/dL Random Glucose 201 H (60-115) mg/dL Estimat Average Glucose 128 mg/dL Hemoglobin A1c % 6.1 H (<6.0) % Calcium 9.3 (8.4-10.2) mg/dL Magnesium 2.0 (1.6-2.6) mg/dL Total Bilirubin 0.6 (0.0-1.0) mg/dL AST 23 (5-37) U/L ALT 19 (0-40) U/L Alkaline Phosphatase 73 (39-117) U/L Troponin I High Sens < 2.7 (<3.5-35.0) ng/L Total Protein 7.1 (6.5-8.0) g/dL Albumin 4.3 (3.5-5.0) g/dL Beta-Hydroxybutyrate 0.20 (0.02-0.27) mmol/L Urine Color Urine Appearance Urine pH (5.0-9.0) Ur Specific Gunter (1.005-1.025) Urine Protein (Neg-Trace) mg/dL Urine Glucose (UA) (Negative) mg/dL Urine Ketones (Negative) mg/dL Urine Blood (Negative) Urine Nitrite (Negative) Ur Leukocyte Esterase (Negative) Influenza Type A (PCR) NEGATIVE (Negative) Influenza Type B (PCR) NEGATIVE (Negative) RSV RNA Qual (PCR) NEGATIVE (Negative) SARS-CoV-2 RNA (RT-PCR) NEGATIVE (Negative) 04/18/23 Range/Units 13:52 WBC (4.8-10.8) X10*3/uL RBC (4.60-5.80) X10*6/uL Hgb (14.0-18.0) g/dl Hct (42.0-52.0) % MCV (80.0-98.0) fL MCH (27.0-33.0) pg MCHC (31.0-36.0) g/dl RDW (11.0-16.0) % Plt Count (160-400) X10*3/uL MPV (9.4-12.4) fL Immature Gran % (Auto) (0.0-0.4) % Neut % (Auto) (45-73) % Lymph % (Auto) (20-40) % [place] % (Auto) (2-11) % Eos % (Auto) (0-4) % Baso % (Auto) (0-2) % Lymph # (Auto) (1.2-4.9) X10*3/uL [place] # (Auto) (0.1-1.2) X10*3/uL Eos # (Auto) (0.0-0.4) X10*3/uL Baso # (Auto) (0.0-0.2) X10*3/uL Abs Immat Gran (auto) (0.00-0.03) X10*3/uL Absolute Neuts (auto) (2.0-8.3) x10*3/uL Absolute Nucleated RBC (0.0-0.012) X10*3/uL Nucleated RBC % (auto) (0.0-0.2) /100WBC PT (11.1-13.3) SEC INR (0.9-1.1) APTT (26.0-36.4) SEC Sodium (135-145) mmol/L Potassium (3.3-5.1) mmol/L Chloride (96-108) mmol/L Carbon Dioxide (22-29) mmol/L Anion Gap (12-20) BUN (9-16) mg/dL Creatinine (0.5-1.4) mg/dL Estim Creat Clear Calc Estimated GFR POC Glucose (60-115) mg/dL Random Glucose (60-115) mg/dL Estimat Average Glucose mg/dL Hemoglobin A1c % (<6.0) % Calcium (8.4-10.2) mg/dL Magnesium (1.6-2.6) mg/dL Total Bilirubin (0.0-1.0) mg/dL AST (5-37) U/L ALT (0-40) U/L Alkaline Phosphatase (39-117) U/L Troponin I High Sens (<3.5-35.0) ng/L Total Protein (6.5-8.0) g/dL Albumin (3.5-5.0) g/dL Beta-Hydroxybutyrate (0.02-0.27) mmol/L Urine Color Yellow Urine Appearance Clear Urine pH 8.0 (5.0-9.0) Ur Specific Gunter 1.020 (1.005-1.025) Urine Protein Negative (Neg-Trace) mg/dL Urine Glucose (UA) Negative (Negative) mg/dL Urine Ketones Negative (Negative) mg/dL Urine Blood Negative (Negative) Urine Nitrite Negative (Negative) Ur Leukocyte Esterase Negative (Negative) Influenza Type A (PCR) (Negative) Influenza Type B (PCR) (Negative) RSV RNA Qual (PCR) (Negative) SARS-CoV-2 RNA (RT-PCR) (Negative) Independent Interpretation I performed an independent interpretation of an: EKG, Plain X-Ray and CT Scan Interpretation: My interpretation is in agreement with the radiologist's impression of these imaging studies. - EXAMINATION: CT HEAD WITHOUT CONTRAST CLINICAL INFORMATION: Dizziness. COMPARISON: 03/09/2022 TECHNIQUE: Contiguous axial imaging was performed from the skull base to vertex without intravenous administration of contrast. This CT examination was performed using dose optimization techniques as appropriate, variously including the following: *Automated exposure control *Adjustment of mA and/or kV according to patient size (this includes techniques or standardized protocols for targeted exams where dose is matched to indication/reason for exam; i.e. extremities or head) *Use of iterative reconstruction technique DLP: 648.5 mGy-cm FINDINGS: Underlying atrophy. Stable lacunar infarct left centrum semiovale. No evolving infarct, mass lesion, mass effect or midline shift seen. No hemorrhage or extra-axial fluid collections. Lens extractions have been performed. Mild rightward nasal septal deviation. Mild nasal cavity heterogeneous mucosal thickening. Sinuses and mastoids are free of disease. Bony structures are intact. Soft tissues are unremarkable. CT/CT head/brain wo IV con IMPRESSION: No acute intracranial pathology. Dictated By: Yanet Leon MD Signed By: Electronically signed by Yanet Leon MD 04/18/23 1309 - EXAMINATION: XR CHEST CLINICAL INFORMATION: Dizziness COMPARISON: 12/20/2022 TECHNIQUE: 2 views of the chest were obtained. FINDINGS: Elevated right hemidiaphragm stable. Clear. No pleural effusions. Heart and pulmonary vessels normal. XR/XR chest 2V IMPRESSION: No active disease. Dictated By: Eduardo Mathis MD Signed By: Electronically signed by Eduardo Mathis MD 04/18/23 1316 - Vent. Rate: 071 BPM Atrial Rate: 071 BPM P-R Int: 152 ms QRS Dur: 100 ms QT Int: 424 ms P-R-T Axes: 053 -12 033 degrees QTc Int: 460 ms Normal sinus rhythm Normal ECG When compared with ECG of 09-MAR-2022 12:57, No significant change was found DD/ 1159 Radiology Impression Discussion of test interpretation with radiology: I have reviewed the radiologist's reading. Independent Historian Clinical information obtained from an independent historian. History obtained from or confirmed by: Other (patient's family at the bed side provided additional history and confirmed the history provided by the patient) Critical Care Time Critical Care Time Critical Care Time: Yes Total Critical Care Time: 45 Attestation: I spent 45 minutes of Critical Care Time with this patient. This does not include time spent on separately reported billable procedures. Discharge Plan Discharge Clinical Impression: Diabetes, Nausea & vomiting Patient Disposition: Home, Self-Care Instructions: Type 2 Diabetes in Adults: New Diagnosis (DC), Acute Nausea and Vomiting (ED), Diabetes and Nutrition (ED), Diabetes and Exercise (ED) Additional Instructions: Your blood sugar was mildly elevated today at 201, I obtained a hgbA1c that was also mildly elevated at 6.1% - this is considered high enough for a diagnosis of diabetes. However, neither value is critically elevated. Your nausea and vomiting is not secondary to your mildly elevated blood sugar. Follow up with your primary care provider. Return to the emergency department immediately if your symptoms worsen or if you develop any dizziness, shortness of breath, difficulty breathing, chest pain, blurry vision, loss of vision, nausea, vomiting, abdominal pain, fever, chills, back pain, or any other complaints. Tran nivel de az?car en la ole estuvo levemente elevado hoy en 201, obtuve valorie hgbA1c que tambi?n estaba ligeramente elevada en 6.1%; esto se considera lo suficientemente alto para un diagn?stico de diabetes. Sin embargo, ninguno de los valores es cr?ticamente elevado. Masha n?useas y v?mitos no son secundarios a tran nivel de az?car en ole levemente elevado. Rm un seguimiento con tran proveedor de atenci?n primaria. Regrese al departamento de emergencias inmediatamente si masha s?ntomas empeoran o si presenta mareos, dificultad para respirar, dificultad para respirar, dolor en el pecho, visi?n borrosa, p?rdida de la visi?n, n?useas, v?mitos, dolor abdominal, fiebre, escalofr?os, dolor de espalda o cualquier otras quejas. Prescriptions: New ondansetron 4 mg tablet,disintegrating 4 mg PO Q8H 3 Days Qty: 9 0RF No Action terazosin 10 mg capsule 10 mg PO BEDTIME 90 Days Qty: 90 3RF omeprazole 20 mg capsule,delayed release(DR/EC) 20 mg PO DAILY Qty: 30 0RF amlodipine 10 mg tablet 10 mg PO DAILY olmesartan 5 mg tablet 5 mg PO QAM Referrals: Shelly Edwards, IT SUPPORT MANAGER [Primary Care Provider] - Print Language: Greek
[2023-04-18 13:53] VITALS: BP 123/71; PULSE 67; RESP 16; O2SAT 99
[2023-04-18 14:01] LABS: Appearance Urine Clear; Color Urine Yellow; Glucose Urine UA Negative (Negative); Leukocyte Esterase Urine Negative (Negative); Nitrite Urine Negative (Negative); Urine Blood Negative (Negative); Urine Ketones Negative (Negative); Urine Protein Negative (Neg-Trace)
[2023-04-18 14:20] LABS: Estimated Average Glucose 128 mg/dL; Hemoglobin A1c % 6.1 % (<6.0)
--- NOTE | 2023-04-18 14:51 | PC.NURSE ---
pt provided with crackers and diet gingerale for po trial per BRENT Wren.
--- NOTE | 2023-04-18 15:22 | PC.NURSE ---
pt tolerated po challenge well. will be discharged once IV fluids completed. pt and family aware of plan of care.
== END 2023-04-18 16:02 | disposition home or self-care (01) ==
PROVIDERS: Physician Assistant Medical; Emergency Provider Emergency Medicine Emergency Medical Services; PCP Registered Nurse
DX: R11.2 Nausea with vomiting, unspecified (principal); E11.9 Type 2 diabetes mellitus without complications; I10 Essential (primary) hypertension; Z20.822 Contact with and (suspected) exposure to COVID-19; Z20.828 Contact with and (suspected) exposure to other viral communicable diseases
CPT/HCPCS: 0241U; 70450; 71046; 80053; 81003; 82010; 82947; 83036; 83735; 84484; 85025; 85610; 85730; 93005; 96361; 96374; 99284; 99285; J2405

== ENCOUNTER → 2023-04-18 11:35 | Outpatient (BNV) | payer MEDICARE, MEDICAID, SELFPAY | PROVIDERS: Emergency Provider Emergency Medicine Emergency Medical Services; PCP Registered Nurse; Visit Provider Internal Medicine | DX: R42 Dizziness and giddiness (principal) | CPT/HCPCS: 93010 ==

== ENCOUNTER 2023-06-20 09:25 | Outpatient (REF) | payer MEDICARE, SELFPAY ==
[2023-06-20 11:12] LABS: Prostate Specific Antigen 3.02 ng/mL (<0.05-4.0)
== END 2023-06-20 09:26 | disposition home or self-care (01) ==
LOC: HO.LAB 09:25
PROVIDERS: PCP Registered Nurse; Visit Provider Urology
DX: N40.0 Benign prostatic hyperplasia without lower urinary tract symptoms (principal); Z12.5 Encounter for screening for malignant neoplasm of prostate
CPT/HCPCS: 36415; 84153

== ENCOUNTER 2023-06-29 09:44 | Outpatient (AMB) | payer MEDICARE, MEDICAID, SELFPAY ==
--- NOTE | 2023-06-29 10:14 | MHC.OFFVIS ---
Intake Intake Visit Reasons: 1Y PSA/PVR(set) Intake Note: Patient is Present for Follow Up PSA/PVR Urology Medication: Terazosin Antibiotic Allergies: None Blood Thinners: None Confirmed Pharmacy: [facility] PVR: 0 Allergies No Known Allergies [No Known Allergies*] Allergy (Verified 06/29/23 10:17) HPI HPI Comments History of Present Illness Details Telly is a very pleasant male. He is seen in the office for following urologic conditions - cystitis recurrent - urinary retention with pyelonephritis - BPH Nigerian translation provided in office by qualified emergency medical technician/driver PVR 0cc No current medications Prior cystitis Concerns regarding balanitis Recommend circumcision revision Lower urinary tract symptoms Longstanding Current therapy of medications Prior therapy tamsulosin which no longer works for him, finasteride but has small prostate, terazosin 10 mg 10/11 admission to hospital with pyelonephritis in CT scan showing thickening of bladder wall Cystoscopy 02/10 tight prostate minimal lateral impingement PSA 07/13 2.2, 06/16 3 Therapeutic plan - continue with alpha-nona therapy Cystitis Recurrence of symptoms Prior antibiotic resistant species 11/10 ESBL E coli 06/14 Streptococcus and Enterococcus Microgen 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 topical therapy Circumcision 03/13 PFSH Medical History Nicotine dependence, cigarettes, uncomplicated BPH (benign prostatic hyperplasia) GERD (gastroesophageal reflux disease) HTN (hypertension) Surgical History History of circumcision Hx of colonoscopy Social History Household Members: Children Housing: House Do you presently have visiting nurse or other home services: No Alcohol intake: former Patient Tobacco Use Status: Current everyday Tobacco user Tobacco use type: Cigarette Years Smoked: (onset 17yo, 1ppd x 54yrs, 50PYH) service: No Current occupational status: disabled Review of Systems Const Denies chills and Denies fever(s) Card Reports no additional complaints and Denies syncope Resp Denies cough GI Denies abdominal pain and Denies heartburn Reports as per HPI and Denies change in libido Neuro Denies syncope Psych Denies change in libido Endo Denies change in libido Physical Exam Const General: cooperative, healthy appearing, comfortable and no acute distress Orientation/consciousness: patient oriented x3 HEENT Face and sinus: Yes normal facial exam Mouth: moist mucous membranes Neck Neck: Yes normal visual inspection, Yes full ROM and Yes trachea midline Chest Chest palpation & inspection: normal inspection of the chest Resp Effort & Inspection: normal respiratory effort, able to speak in complete sentences and no respiratory distress GI Inspection: Yes normal to inspection Back/Spine/Pelvis Cervical Spine: normal cervical lordosis Thoracic/Lumbar Spine: thoracic and lumbar spine normal to inspection Skin General skin exam: no rashes or lesions noted Neuro General: patient oriented x3, gait normal, tone normal and moves all extremities Extrem General: Yes normal to inspection and Yes capillary refill normal Office Procedures Post Void Residual Post Residual Void Post Void Residual (PVR): 0 [id number] Void Residual by ultrasound Assessment & Plan Assessment & Plan (1) Complicated urinary tract infection: Code(s): N39.0 - Urinary tract infection, site not specified (2) BPH (benign prostatic hyperplasia): Code(s): N40.0 - Benign prostatic hyperplasia without lower urinary tract symptoms Plan Risks, benefits and alternatives to therapy were discussed. These include but are not limited to infection, bleeding, damage to local organs and tissues, need for further interventions. Anesthetic risks regarding cardiac arrhythmia, blood clots, and potential mortality were discussed. The patient understands the typical recovery time and the outpatient nature of the procedure. After consideration of these risks the patient gives full informed consent and they wish to move ahead with the procedure. Revision circumcision Orders: Orders AMB Post Void Residual by ultrasound Today N40.0 - Benign prostatic hyperplasia without lower urinary tract symptoms Medications: New betamethasone dipropionate 0.05% Thin coat 2 times per day 1 appl topical BID 15 grams 0RF N48.1 - Balanitis, Q55.69 - Other congenital malformation of penis Patient Instructions: Imaging studies, laboratory and physical exam results were discussed and reviewed in detail. No major barriers to patient understanding were identified. An opportunity to ask questions regarding the treatment plan was provided. All questions were answered. The patient expressed understanding and agreement with the above treatment plan. The patient is aware they should contact our office by phone for worsening of their current condition or the appearance of new urologic symptoms. Compliance is encouraged with any medications and followup testing that is ordered. It is a privilege to participate in the urologic care of your patient. If you have any questions or concerns regarding treatment for the above conditions, or other urologic issues, please do not hesitate to contact me. The office telephone contact is [phone]. This note is constructed using voice recognition software. While every effort has been made to ensure accuracy magneto electrician errors may have been included. Yours sincerely, Dr Karel Rios MD, [facility] - Urology Providers of Expert, Compassionate Care for the Genitourinary System Coding Level of Care Code Est Pt Level 4 (14705) Diagnoses Complicated urinary tract infection N39.0 BPH (benign prostatic hyperplasia) N40.0 CPT Codes Post Residual Void - PVR CPT Code: 71957-Ariq Void Residual by ultrasound ([id number])
== END 2023-06-29 10:50 | disposition home or self-care (01) ==
PROVIDERS: Visit Provider Urology
DX: N39.0 Urinary tract infection, site not specified (principal); N40.0 Benign prostatic hyperplasia without lower urinary tract symptoms; N48.1 Balanitis
CPT/HCPCS: 99214

== ENCOUNTER → 2023-06-29 09:44 | Outpatient (BNVA) | payer MEDICARE, MEDICAID, SELFPAY | PROVIDERS: Visit Provider Urology | DX: N40.0 Benign prostatic hyperplasia without lower urinary tract symptoms (principal); N39.0 Urinary tract infection, site not specified | CPT/HCPCS: 51798; 99212 ==

== ENCOUNTER 2023-09-03 10:44 | Day surgery (SDC) | payer MEDICARE, MEDICAID, SELFPAY ==
[2023-08-30 10:35] VITALS: BMI 25.1
--- NOTE | 2023-08-30 15:35 | P.CONAN_ITS ---
Documented by User: Barby Finn NP 08/30/23 15:37 HPI - Anesthesia Eval Consult details Narrative: 73yo M for REVISION Circumcision s/p circ 2020 with GA-ETT 7.5. Attempted LMA but unable to seat well PMFSH Active Problems Active Problems: All Active Problems Complicated urinary tract infection (Acute) Balanitis (Acute) Pyelonephritis (Acute) BPH (benign prostatic hyperplasia) (Acute) Nicotine dependence, cigarettes, uncomplicated (Acute) Past Medical History Medical History (Updated 08/30/23 @ 10:33 by Nell Du RN) Hx-TIA (transient ischemic attack) Nicotine dependence, cigarettes, uncomplicated BPH (benign prostatic hyperplasia) GERD (gastroesophageal reflux disease) HTN (hypertension) Family History Family history of problems with anesthesia: No Surgical History Surgical History History of circumcision Hx of colonoscopy History of Problems with Anesthesia: No Social History Social History Household Members: Children Housing: House Do you presently have visiting nurse or other home services: No Alcohol intake: former Patient Tobacco Use Status: Former Tobacco user Tobacco use type: Cigarette Years Smoked: (onset 17yo, 1ppd x 54yrs, 50PYH) Use of substances other than those prescribed or required for medical reasons: No Are you DNR?: No Advance Directives: No Advance Directives Information Provided: Yes service: No Current occupational status: disabled Meds Allergies Allergy/AdvReac Type Severity Reaction Status Date / Time No Known Allergies Allergy Verified 06/29/23 10:17 [No Known Allergies*] Home Medications ?Medication ?Instructions ?Recorded ?Confirmed ?Last Taken ?Type amlodipine 10 mg tablet 10 mg PO DAILY 06/29/22 08/30/23 Unknown History olmesartan 5 mg tablet 5 mg PO QAM 06/29/22 08/30/23 Unknown History Exam Height,Weight and Vital Signs: Height 5 ft 10 in Weight 79.379 kg Pertinent Lab Results Pertinent Lab Results: Laboratory Tests 11/17/20 11/25/20 04/18/23 04:57 11:22 11:46 WBC 15.8 H 9.7 Hgb 14.5 14.6 Hct 45.2 D 42.8 Plt Count 545 H D 280 D Sodium 137 139 Potassium 3.7 3.5 Chloride 102 103 Carbon Dioxide 29 26 BUN 15 18 H Creatinine 0.98 1.10 Narrative Narrative: EKG 03/2023 Vent. Rate : 071 BPM Atrial Rate : 071 BPM P-R Int : 152 ms QRS Dur : 100 ms QT Int : 424 ms P-R-T Axes : 053 -12 033 degrees QTc Int : 460 ms Normal sinus rhythm Normal ECG When compared with ECG of 09-MAR-2022 12:57, No significant change was found Assessment and Plan Assessment Anesthesia Assessment: Chart Reviewed Final Anesthetic Review Family History of Problems with Anesthesia: No History of Problems with Anesthesia: No Documented by User: Castillo Shay MD 09/03/23 15:02 [facility] Past Medical History Medical History (Updated 08/30/23 @ 10:33 by Nell Du RN) Hx-TIA (transient ischemic attack) Nicotine dependence, cigarettes, uncomplicated BPH (benign prostatic hyperplasia) GERD (gastroesophageal reflux disease) HTN (hypertension) Surgical History Surgical History History of circumcision Hx of colonoscopy Social History Social History Household Members: Children Housing: House Do you presently have visiting nurse or other home services: No Alcohol intake: former Patient Tobacco Use Status: Former Tobacco user Tobacco use type: Cigarette Years Smoked: (onset 17yo, 1ppd x 54yrs, 50PYH) Use of substances other than those prescribed or required for medical reasons: No Are you DNR?: No Advance Directives: No Advance Directives Information Provided: Yes service: No Current occupational status: disabled Meds Allergies Allergy/AdvReac Type Severity Reaction Status Date / Time No Known Allergies Allergy Verified 06/29/23 10:17 [No Known Allergies*] Home Medications ?Medication ?Instructions ?Recorded ?Confirmed ?Last Taken ?Type amlodipine 10 mg tablet 10 mg PO DAILY 06/29/22 08/30/23 Unknown History olmesartan 5 mg tablet 5 mg PO QAM 06/29/22 08/30/23 Unknown History Exam Airway Mallampati Class: II TM Dist: <=3cm Neck ROM: Full Partial: Upper Heart: ok Lungs: ok Assessment and Plan Assessment Anesthesia Assessment: Anesthesia Plan Discussed Final Anesthetic Review NPO: Yes ASA Class: III Final Preanesthetic Review: No Changes in Pt Med Stat, Meds/Allgs Chart Reviewed, Consent Obtained/Reviewed and Anes Risks/Benef Reviewed Patient Risk: Intermediate Procedure Risk: Low Anesthetic Plan Anesthetic Plan: GA and Agree w/ Assess. and Plan Disposition: Standard PACU
[2023-09-03 12:03] VITALS: BMI 24.5
[2023-09-03 12:20] VITALS: BP 102/84; PULSE 68; RESP 16; TEMP 36.7; O2SAT 100
[2023-09-03] MEDS: Lactated Ringers 1,000 ML 100 ML IVCONT (12:27)
--- NOTE | 2023-09-03 14:07 | MHC.SHP ---
Pre-Procedural Eval Section A - 24 Hr Update-Section A only Date of Service: 09/03/23 The patient is an INPATIENT: No Changes since office visit: Yes Patient answered all questions The patient has been examined within 24 hours of the surgical procedure. The History & Physical has been completed within 30 days and I have reviewed it.: Yes Section B - Complete if H&P > 30 days Chief Complaint: Balanitis Details of Present Illness: Plan for revision circumcision Relevant Family History (Specify if Yes): No Relevant Social History: None Present Medications: see Short Stay Collaborative assessment Medical History: No relevant PMH History of Previous Operations: No relevant previous surgery Allergies: Allergies Allergy/AdvReac Type Severity Reaction Status Date / Time No Known Allergies Allergy Verified 06/29/23 10:17 [No Known Allergies*] Review of Systems Sugical H&P ROS: Negative: Constitution, Cardiovascular, Respiratory, Neurological, Psychiatric, Hem-Onc, Allergic/Immunologic, Gastrointestinal, Genitourinary, Musculoskeletal, Integumentary, Endocrine and Eyes/Ears/Nose/Throat Exam Surgical H&P Exam: Normal: HEENT, Normal: Heart, Normal: Lungs, Normal: Extremities, Normal: Abdomen, Normal: Skin and Normal: Neurological Plan Diagnosis/Plan: Unchanged (Revision circumcision) I have reviewed the history and physical and performed a pertinent physical examination on my patient. No changes have occurred unless specified. Time Spent With Patient Time: Total time managing care of this patient today ____ minutes.
--- NOTE | 2023-09-03 15:28 | W.PM.OPN ---
Operative Note Operative Note Date of Service: 09/03/23 Narrative: PreOperative Diagnosis: Balanitis Post Operative Diagnosis: Balanitis Procedure: Revision Circumcision Surgeon: Dr Karel Rios Anesthesia: General Indications for procedure: Recurring balanitis in inability to withdrawal foreskin of penile glans. Risks and benefits including bleeding, scarring, need for revision surgery been discussed. Procedure: After informed consent was verified the patient was brought to the operating room and placed in a supine position. Anesthesia was administered per protocol. The patient was prepped and draped sterile fashion. Safety pause time-out was performed. Antibiotics have been given. The penis was examined and proximal incision marked that lay just proximal to the resting position of the penile sulcus. This was followed around the circumference of the penis. A penile ring block was performed using 1% lidocaine with no epinephrine. Approximately 8 cc. Prior incision. First incision was developed proximally just proximal to existing incision line. Using small clamps the skin was stretched and a repeat incision was placed proximally 5 mm from the penile sulcus. At the area of the frenulum care was taken to empty the penile frenulum intact. Using clamps the dorsal skin was elevated. Using Metzenbaum scissors the avascular plane was entered and proximal and distal incision were joined. The bridging skin was elevated and clamped. It was then divided using Bovie. The sleeve of tissue was then removed circumferentially around the penis using cautery in order to minimize bleeding. The shaft was then examined in any bleeding areas were controlled. More local anesthetic was injected into the plane beneath avascular plane to help with postprocedure pain management. The skin edges after they were appropriately examined low reapposed. A 3-0 chromic suture was placed at 12:00 o'clock and 06:00 o'clock positions. Interrupted 3-0 was then placed the 09:00 o'clock and 3 o'clock position. Each quadrant was then filled with 3 sutures using 4-0 chromic. At the completion of the procedure there was adequate hemostasis. The incision was washed and dried. Antibiotic cream was applied to the incision. A Mat wrap was applied followed by a Coban dressing. Xeroform gauze had been used to cover antibiotic ointment. He tolerated the procedure well and was extubated in the room and transferred in stable condition to the recovery area. Pathology: Foreskin Drains: none
[2023-09-03 15:31] VITALS: BP 128/68; PULSE 69; RESP 18; TEMP 36.3; O2SAT 95
[2023-09-03 15:36] VITALS: BP 119/73; PULSE 69; RESP 18; O2SAT 97
[2023-09-03 15:41] VITALS: BP 134/76; PULSE 71; RESP 18; O2SAT 95
[2023-09-03 15:46] VITALS: BP 125/77; PULSE 66; RESP 20; O2SAT 97
[2023-09-03] MEDS: Acetaminophen 325 MG TABLET 650 MG PO (15:55)
[2023-09-03 16:01] VITALS: BP 122/86; PULSE 63; RESP 20; TEMP 36.2; O2SAT 97
== END 2023-09-03 16:11 | disposition home or self-care (01) ==
PROVIDERS: PCP Registered Nurse; Visit Provider Urology
PROC: (CPT 54163; principal; 2023-09-03 12:50)
DX: N48.1 Balanitis (principal); N40.0 Benign prostatic hyperplasia without lower urinary tract symptoms; I10 Essential (primary) hypertension; Z79.899 Other long term (current) drug therapy; F17.210 Nicotine dependence, cigarettes, uncomplicated
CPT/HCPCS: 54163; 88304; J0690; J2704; J2795; J3010

== ENCOUNTER → 2023-09-03 10:44 | Outpatient (BNV) | payer MEDICARE, MEDICAID, SELFPAY | PROVIDERS: PCP Registered Nurse; Visit Provider Urology | DX: N48.1 Balanitis (principal) | CPT/HCPCS: 54163 ==

== ENCOUNTER 2023-09-28 11:43 | Outpatient (AMB) | payer MEDICARE, MEDICAID, SELFPAY ==
--- NOTE | 2023-09-28 11:46 | MHC.OFFVIS ---
Intake Visit Reasons: Circumcision follow up Allergies No Known Allergies [No Known Allergies*] Allergy (Verified 06/29/23 10:17) Medication List - Last Reconciled 09/28/23 by Karel Rios MD amlodipine 10 mg PO DAILY betamethasone dipropionate 0.05% 1 appl topical BID olmesartan 5 mg PO QAM omeprazole 20 mg PO DAILY ondansetron 4 mg PO Q8H 3 days terazosin 10 mg PO BEDTIME 90 days tramadol 50 mg PO Q6H PRN HPI Comments Details: Telly is a very pleasant male. He is seen in the office for following urologic conditions - cystitis recurrent - urinary retention with pyelonephritis - BPH Anguillan translation provided in office by qualified ophthalmic medical technician Continue with terazosin Circumcision follow-up Lower urinary tract symptoms Longstanding Current therapy of medications Prior therapy tamsulosin which no longer works for him, finasteride but has small prostate, terazosin 10 mg 10/11 admission to hospital with pyelonephritis in CT scan showing thickening of bladder wall Cystoscopy 02/10 tight prostate minimal lateral impingement PSA 07/13 2.2, 06/16 3 Therapeutic plan - continue with alpha-nona therapy Cystitis Recurrence of symptoms Prior antibiotic resistant species 11/10 ESBL E coli 06/14 Streptococcus and Enterococcus Microgen 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 topical therapy Circumcision 03/13 [facility] Medical History (Updated 08/30/23 @ 10:33 by Nell Du RN) Hx-TIA (transient ischemic attack) Nicotine dependence, cigarettes, uncomplicated BPH (benign prostatic hyperplasia) GERD (gastroesophageal reflux disease) HTN (hypertension) Surgical History History of circumcision Hx of colonoscopy Social History Household Members: Children Housing: House Do you presently have visiting nurse or other home services: No Alcohol intake: former Patient Tobacco Use Status: Former Tobacco user Tobacco use type: Cigarette Years Smoked: (onset 17yo, 1ppd x 54yrs, 50PYH) service: No Current occupational status: disabled Review of Systems Const Denies chills and Denies fever(s) Card Reports no additional complaints and Denies syncope Resp Denies cough GI Denies abdominal pain and Denies heartburn Reports as per HPI and Denies change in libido Neuro Denies syncope Psych Denies change in libido Endo Denies change in libido Physical Exam Const General: cooperative, healthy appearing, comfortable and no acute distress Orientation/consciousness: patient oriented x3 HEENT Face and sinus: Yes normal facial exam Mouth: moist mucous membranes Neck Neck: Yes normal visual inspection, Yes full ROM and Yes trachea midline Chest Chest palpation & inspection: normal inspection of the chest Resp Effort & Inspection: normal respiratory effort, able to speak in complete sentences and no respiratory distress GI Inspection: Yes normal to inspection Back/Spine/Pelvis Cervical Spine: normal cervical lordosis Thoracic/Lumbar Spine: thoracic and lumbar spine normal to inspection Skin General skin exam: no rashes or lesions noted Neuro General: patient oriented x3, gait normal, tone normal and moves all extremities Extrem General: Yes normal to inspection and Yes capillary refill normal Assessment & Plan Assessment & Plan (1) BPH (benign prostatic hyperplasia): Code(s): N40.0 - Benign prostatic hyperplasia without lower urinary tract symptoms Category: Medical Plan Six-month follow-up office Patient Instructions: Imaging studies, laboratory and physical exam results were discussed and reviewed in detail. No major barriers to patient understanding were identified. An opportunity to ask questions regarding the treatment plan was provided. All questions were answered. The patient expressed understanding and agreement with the above treatment plan. The patient is aware they should contact our office by phone for worsening of their current condition or the appearance of new urologic symptoms. Compliance is encouraged with any medications and followup testing that is ordered. It is a privilege to participate in the urologic care of your patient. If you have any questions or concerns regarding treatment for the above conditions, or other urologic issues, please do not hesitate to contact me. The office telephone contact is [phone]. This note is constructed using voice recognition software. While every effort has been made to ensure accuracy transitional care manager errors may have been included. Yours sincerely, Dr Karel Rios MD, [facility] - Urology Providers of Expert, Compassionate Care for the Genitourinary System Coding Level of Care Code Global (13934) Diagnoses BPH (benign prostatic hyperplasia) N40.0
== END 2023-09-28 12:10 | disposition home or self-care (01) ==
PROVIDERS: PCP Registered Nurse; Visit Provider Urology
DX: N40.0 Benign prostatic hyperplasia without lower urinary tract symptoms (principal)
CPT/HCPCS: 99024

== ENCOUNTER → 2023-09-28 11:43 | Outpatient (BNVA) | payer MEDICARE, MEDICAID, SELFPAY | PROVIDERS: PCP Registered Nurse; Visit Provider Urology | DX: N40.0 Benign prostatic hyperplasia without lower urinary tract symptoms (principal); R33.8 Other retention of urine; N12 Tubulo-interstitial nephritis, not specified as acute or chronic; N30.90 Cystitis, unspecified without hematuria | CPT/HCPCS: 99212 ==

== ENCOUNTER 2023-10-24 09:50 | Outpatient (REF) | payer MEDICARE, MEDICAID, SELFPAY ==
[2023-10-24 13:37] LABS: Anion Gap 11 (12-20); Blood Urea Nitrogen 16 mg/dL (9-16); Calcium 9.8 mg/dL (8.4-10.2); Carbon Dioxide 29 mmol/L (22-29); Chloride 104 mmol/L (96-108); Cholesterol 218 mg/dL (<200); Estimated Glomerular Filt Rate > 60; Glucose Random 135 mg/dL (60-115); HDL Cholesterol 41 mg/dL (>40); LDL Cholesterol Calculated 150 mg/dL (<100); Potassium 3.8 mmol/L (3.3-5.1); Sodium 140 mmol/L (135-145); Triglycerides 139 mg/dL (<150)
[2023-10-24 13:51] LABS: Estimated Average Glucose 126 mg/dL
== END 2023-10-24 09:51 | disposition home or self-care (01) ==
LOC: HO.HHCL 09:50
PROVIDERS: Visit Provider Registered Nurse
DX: Z13.6 Encounter for screening for cardiovascular disorders (principal); R73.03 Prediabetes
CPT/HCPCS: 36415; 80048; 80061; 83036

== ENCOUNTER 2024-05-14 14:07 | Outpatient (AMB) | payer MEDICARE, MEDICAID, SELFPAY ==
--- NOTE | 2024-05-14 14:13 | MHC.OFFVIS ---
Intake Visit Reasons: 6m/PVR Intake Note: Patient is present for 6M/PVR Urology Medication:TERAZOSIN Antibiotic Allergy:NONE Blood Thinner:NONE Todays PVR:14ML'S Dry Cleaner Presser Required: No Allergies No Known Allergies [No Known Allergies*] Allergy (Verified 05/14/24 14:14) HPI Comments Details: Telly is a very pleasant male. He is seen in the office for following urologic conditions - cystitis recurrent - urinary retention with pyelonephritis - BPH Anguillan translation provided in office by qualified medical accounts receivable specialist Six-month follow-up Off prostate medications PVR 15 cc Follow p.r.n. Lower urinary tract symptoms Longstanding Current therapy of medications Prior therapy tamsulosin which no longer works for him, finasteride but has small prostate, terazosin 10 mg 10/11 admission to hospital with pyelonephritis in CT scan showing thickening of bladder wall Cystoscopy 02/10 tight prostate minimal lateral impingement PSA 07/13 2.2, 06/16 3 Cystitis Recurrence of symptoms Prior antibiotic resistant species 11/10 ESBL E coli 06/14 Streptococcus and Enterococcus Microgen 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 topical therapy Circumcision 03/13 PFSH Medical History (System 10/30/23 @ 12:30 by Hortensia Morales) Hx-TIA (transient ischemic attack) Nicotine dependence, cigarettes, uncomplicated BPH (benign prostatic hyperplasia) GERD (gastroesophageal reflux disease) HTN (hypertension) Surgical History (System 10/30/23 @ 12:30 by Hortensia Morales) History of circumcision Hx of colonoscopy Social History (System 10/30/23 @ 12:30 by Hortensia Morales) Household Members: Children Housing: House Do you presently have visiting nurse or other home services: No Alcohol intake: former Patient Tobacco Use Status: Former Tobacco user Tobacco use type: Cigarette Years Smoked: (onset 17yo, 1ppd x 54yrs, 50PYH) service: No Current occupational status: disabled Review of Systems Const Denies chills and Denies fever(s) Card Reports no additional complaints and Denies syncope Resp Denies cough GI Denies abdominal pain and Denies heartburn Reports as per HPI and Denies change in libido Neuro Denies syncope Psych Denies change in libido Endo Denies change in libido Physical Exam Const General: cooperative, healthy appearing, comfortable and no acute distress Orientation/consciousness: patient oriented x3 HEENT Face and sinus: Yes normal facial exam Mouth: moist mucous membranes Neck Neck: Yes normal visual inspection, Yes full ROM and Yes trachea midline Chest Chest palpation & inspection: normal inspection of the chest Resp Effort & Inspection: normal respiratory effort, able to speak in complete sentences and no respiratory distress GI Inspection: Yes normal to inspection Back/Spine/Pelvis Cervical Spine: normal cervical lordosis Thoracic/Lumbar Spine: thoracic and lumbar spine normal to inspection Skin General skin exam: no rashes or lesions noted Neuro General: patient oriented x3, gait normal, tone normal and moves all extremities Extrem General: Yes normal to inspection and Yes capillary refill normal Office Procedures Post Void Residual Post Residual Void Post Void Residual (PVR): 14 54421-Blri Void Residual by ultrasound Results AMB Urinalysis, Automated UA Leukoctes 0 Garry/uL Last Edit by MAXINE Floyd on 05/14/24 14:28 UA Nitrite Negative Last Edit by MAXINE Floyd on 05/14/24 14:28 UA Urobilinogen 0.2 mg/dL Last Edit by MAXINE Floyd on 05/14/24 14:28 UA Protein 15 mg/dL Last Edit by MAXINE Floyd on 05/14/24 14:28 UA pH 6.5 Last Edit by MAXINE Floyd on 05/14/24 14:28 UA Blood 0 Po/uL Last Edit by MAXINE Floyd on 05/14/24 14:28 UA Specific [place] 1.015 Last Edit by MAXINE Floyd on 05/14/24 14:28 UA Ketone Negative Last Edit by MAXINE Floyd on 05/14/24 14:28 UA Bilirubin 0 mg/dL Last Edit by MAXINE Floyd on 05/14/24 14:28 UA Glucose 0 mg/dL Last Edit by MAXINE Floyd on 05/14/24 14:28 Results Reviewed Results Reviewed: Laboratory Last Values Urine pH (Auto) 6.5 05/14/24 14:28 Specific [place] (Auto) 1.015 05/14/24 14:28 Urine Protein (Auto) 15 mg/dL 05/14/24 14:28 Glucose (UA)(Auto) 0 mg/dL 05/14/24 14:28 Urine Ketones (Auto) Negative 05/14/24 14:28 Urine Blood (Auto) 0 Po/uL 05/14/24 14:28 Urine Nitrite (Auto) Negative 05/14/24 14:28 Urine Bilirubin (Auto) 0 mg/dL 05/14/24 14:28 Urine Urobilinogen (Auto) 0.2 mg/dL 05/14/24 14:28 Leukocyte Esterase (Auto) 0 Garry/uL 05/14/24 14:28 Assessment & Plan Assessment & Plan (1) Complicated urinary tract infection: Code(s): N39.0 - Urinary tract infection, site not specified Category: Medical (2) BPH (benign prostatic hyperplasia): Code(s): N40.0 - Benign prostatic hyperplasia without lower urinary tract symptoms Category: Medical (3) Balanitis: Code(s): N48.1 - Balanitis Category: Medical Plan P.r.n. follow-up Orders: Orders AMB Urinalysis Automated Today Z13.9 - Encounter for screening, unspecified Patient Instructions: Imaging studies, laboratory and physical exam results were discussed and reviewed in detail. No major barriers to patient understanding were identified. An opportunity to ask questions regarding the treatment plan was provided. All questions were answered. The patient expressed understanding and agreement with the above treatment plan. The patient is aware they should contact our office by phone for worsening of their current condition or the appearance of new urologic symptoms. Compliance is encouraged with any medications and followup testing that is ordered. It is a privilege to participate in the urologic care of your patient. If you have any questions or concerns regarding treatment for the above conditions, or other urologic issues, please do not hesitate to contact me. The office telephone contact is [phone]. This note is constructed using voice recognition software. While every effort has been made to ensure accuracy salesperson yard goods errors may have been included. Yours sincerely, Dr Karel Rios MD, [facility] - Urology Providers of Expert, Compassionate Care for the Genitourinary System Coding Level of Care Code Est Pt Level 3 (51615) Diagnoses Complicated urinary tract infection N39.0 BPH (benign prostatic hyperplasia) N40.0 Balanitis N48.1 CPT Codes Post Residual Void - PVR CPT Code: 06086-Xsir Void Residual by ultrasound ([id number])
--- OUTSIDE RECORDS SUMMARY | 2024-05-14 16:27 | XMS_ITS | Clinical Summary ---
Author Organization [employer] Address [address] [place] [address] Care Team Providers Care Edging Machine Operator Name Role Phone Shelly Edwards [facility] Primary Care Provider [phone] Allergies No known active allergies Medications chlorthalidone (Hygroton) 25 MG tabletIndication s:Primary hypertension Take 1 half tab (12.5mg) by mouth daily 15 tablet 11 3 Active glucose blood test stripIndications :Prediabetes Use as instructed 100 each 12 4 Active polyethylene glycol, PEG, 3350 (MiraLax) 17 GM/SCOOP powderIndication s:Constipation, unspecified constipation type Take 17 g by mouth in the morning. Dissolve in 8 oz of fluid 527 g 2 4 Active aspirin (Aspirin Adult Low Dose) 81 MG EC tablet Take 1 tablet (81 mg) by mouth in the morning. 90 tablet 3 4 06/18/19 25 Active triamcinolone (Kenalog) 0.025 % creamIndications :Rash and nonspecific skin eruption Apply topically 2 times daily. 80 g 4 Active rosuvastatin (Crestor) 40 MG tablet TAKE 1 TABLET BY MOUTH AT BEDTIME 90 tablet 1 4 Active amLODIPine (Norvasc) 10 MG tablet TAKE 1 TABLET BY MOUTH EVERY MORNING 90 tablet 1 4 Active olmesartan (BENIcar) 5 MG tabletIndication s:Hypertension, unspecified type TAKE 1 TABLET BY MOUTH EVERYDAY AT NOON 90 tablet 4 Active Blood Glucose Monitoring Suppl (FreeStyle Lite) w/Device kitIndications:P rediabetes 1 each in the morning. 1 kit 4 04/24/19 25 Lancets Mis. kitIndications:P rediabetes 1 each in the morning. 50 kit 11 4 04/24/19 25 Active Problems Problem Noted Date Diagnosed Date Constipation 06/19/2023 Prediabetes 04/25/2023 Assessment & Plan (04/25/2023 3:00 PM EST): I discussed in length with patient and daughter re BS and A1c limits for dx IFG vs DM. He will check fgstks 1x/d and fu with PCP in 6w. We also discussed re importance of life style modifications, low carb diet and exercise(physical activity) as tolerated. He will be referred to Nutrition. No meds started at this time as A1c is 6.1 Patient has underlying MS SQL DEVELOPER vascular disease (probaly form HTN/hyperlipidemia) which they're aware can be worsened by progression of IFG On to DM but that no changes were seen on CT scan last week. Multiple thyroid nodules 12/04/2022 Overview (12/04/2022): 08/2022 thyroid ultrasound IMPRESSION: 1. There is a diffuse goiter, right lobe greater than left. 2. A 2.3 cm in maximal diameter left thyroid lower pole nodule meets ACR biopsy criteria and is amenable to ultrasound-guided biopsy, if clinically indicated and not already performed. Assessment & Plan (02/13/2023 8:47 PM EDT): ?? Pt previously referred to [facility]-denies due to not accepting new patients. [facility] endo does not accept patient insurance ?? [facility] endo referral pending. Will task RN's to follow up. Provided patient with contact information as well ?? Repeat TSH Assessment & Plan (12/04/2022 2:48 PM EDT): Call placed to [facility] end[facility]. They report previously mailed letter to patient that they are not taking new patients at this time. Spoke with referrals team. Patient insurance not accepted by [facility]. Referral placed to [facility]. Patient will call to make initial appointment. Lacunar infarction 12/04/2022 Assessment & Plan (04/25/2023 3:02 PM EST): Seen on CT scan on 02/2023, no change on the one on 04/18/23 No hx recurrent falls. Fu with PCP re assistance for some ADLs, info re [employer] program was given to his daughter to fu with them (reached out Unsuccessfully by our CM program) Mild cognitive impairment 09/05/2022 Overview (12/04/2022): 03/2022 Brain MRI Chronic lacunar infarct involving the anterior left centrum semiovale. Otherwise unremarkable noncontrast MRI of the brain. CBC, CMP, iron, b12, folic acid all WNL. Negative RPR, HIV. Minicog 08/2022: 3 Assessment & Plan (12/04/2022 3:09 PM EDT): ?? Discussed importance of remaining active and social. Patient agrees that adult day program may be a good option. Will reach out to forms department to assist patient in enrolling. ?? Pt also interested in RE[employer] ROOM WORKER hours ?? Will refer to [employer] maintenance 07/21/2022 Overview (02/13/2023): CRC: 2019 in [place], normal per patient report. records unavailable PSA:06/2022 2.12 Vision: [facility]: Discuss at f/u HIV: 08/2021, neg Hepatitis: 08/2021, neg A1c: 5.9% 08/2021 ASCVD Risk score: >20%, Assessment & Plan (02/13/2023 8:46 PM EDT): ?? Pt previously declines repeat CRC screening. Will continue to discuss at follow up Mixed hyperlipidemia 07/21/2022 Overview (07/21/2022): ?? Rosuvastatin 40mg Former tobacco use 07/21/2022 Overview (07/21/2022): ?? 50 pack year history, quit 2021 ?? Negative CXR 08/2021 Benign prostatic hyperplasia 08/31/2021 Overview (07/21/2022): - Last seen by [facility] urology, Dr. Rios 11/2021 at which time medications (finasteride and terazosin) were d/c. Patient was doing well and was advised to f/u PRN - Hx of recurrent cystitis with previous abx resistance - 09/2020 admitted to [facility] w/ pyelonephritis. CT at this time w/ thickening of bladder wall. Cystocopy 01/2021. - No current sx Hypertensive disorder 08/31/2021 Overview (10/24/2023): Olmesartan 5mg daily Chlorthalidone 12.5 mg daily Amlodipine 10mg Maintenance: - Aerobic exercise to reduce BP. Initial goal of 30 min walk 3-5x/week. Increase as tolerated. - low-sodium diet (goal: <2g/day) and heart healthy diet such as DASH to reduce BP and prevent ASCVD. - Home BP monitoring 1-2 x day with goal of <140/90. - Seek immediate medical attention for chest pain, palpitations, SOB, syncope, or sudden changes in mental status. - Do not change or discontinue current prescriptions without first consulting health care provider Assessment & Plan (02/13/2023 8:51 PM EDT): ?? STOP chlorthalidone 15mg ?? Continue to monitor BP ?? Contact HC if dizziness episodes return ?? Patient verbalizes understanding and agrees to plan Assessment & Plan (12/04/2022 3:04 PM EDT): ?? Well controlled ?? Continue current regimen Assessment & Plan (07/21/2022 10:18 AM EDT): ?? Well controlled, continue current regimen ?? Repeat labs today Resolved Problems Problem Noted Date Diagnosed Date Resolved Date Hyperglycemia 04/25/2023 10/24/2023 Encounters Date Type Department Care Team Description 05/14/2024 Refill [facility] [address] [place] [address] Shelly Edwards FNP 05/07/2024 Patient Outreach [facility] [address], [place] [phone] Shelly Edwards FNP Pre-visit Planning ((Unable to reach for PVP screening, LVM)) 03/05/2024 Telephone [facility] [address] [place] [address] [phone] Shelly Edwards FNP from Last 3 Months Immunizations Name Administration Dates Next Due Influenza High-dose Quadriva lent Preservative Free 01/31/2023,03/14/2022 Moderna Covid-19 Vaccine 12+ 03/10/2021,07/26/19 21,06/26/2020 Pneumococcal Conjugate PCV 20 01/31/2023 Pneumococcal Polysaccharide PPSV23 08/31/2021 RSV Bivalent 03/19/2023 Tdap 10/14/2021 Zoster, Recombinant 11/07/2021,08/31/2021 Family History Medical History Relation Name Comments Alzheimer's disease Mother's Brother Alzheimer's disease Mother's Sister Relation Name Status Comments Mother's Brother Mother's Sister Social History Tobacco Use Types Packs/Day Years Used Date Smoking Tobacco: Former Cigarettes Passive Smoke Exposure: Current Smokeless Tobacco: Never Tobacco Cessation:Counseling Given: Not Answered Alcohol Use Standard Drinks/Week Comments Never 0 (1 standard drink = 0.6 oz pur e alcohol) Alcohol Answer Date Recorded Frequency of Alcohol Consumption Not on file 10/24/2023 Average Number of Drinks Not on file 024 Frequency of Binge Drinking Not on file 06/2023 Score 0 10/24/2023 Depression Answer Date Recorded Patient Health Questionnaire-9 Score 0 10/24/2023 Patient Health Questionnaire-9 Score 0 10/24/2023 Last PHQ-9: Questionnaire Data Not on file 0 10/24/2023 Housing Stability Answer Date Recorded What is your housing situation today? I have hernandez pelayo 09/14/[address] you li ve. Do you have problems with any of the following? None of the above 09/14/2023 Food Insecurity Answer Date Recorded Within the past 12 months, y ou worried that your food would run out before you got money to buy more: Never True 02/09/2023 Within the past 12 months,th e food you bought just didn't last and you didn't have enough money to get more: Never True Transportation Answer Date Recorded In the past 12 months, has l ack of transportation kept you from medical appts, meetings, work or from getting things needed for daily living? No 02/09/2023 Utilities Answer Date Recorded In the past 12 months, has t he electric, gas,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 threatened to shut off services in your home? No 02/09/2023 Depression Answer Date Recorded Patient Health Questionnaire-2 Score 0 10/24/2023 Internet Access Answer Date Recorded Internet Access Q1 Yes 12/24/2023 Internet Access Q2 Not on file 12/24/2023 Sex and Gender Information Value Date Recorded Sex Assigned at Male 02/20/2022 10:39 AM EDT Legal Sex Male 10:39 AM EDT Gender Identity Male 02/20/2022 10:39 AM EDT Sexual Orientation Straight 02/20/2022 10 :39 AM EDT Last Filed Vital Signs Vital Sign Reading Time Taken Comments Blood Pressure 112/80 10/24/2023 9:43 AM EDT Pulse 78 10/24/2023 9:14 AM EDT Temperature 36.4 ??C (97.6 ??F) 10/24/2023 9:14 AM ED T Respiratory Rate 20 10/24/2023 9:14 AM EDT Oxygen Saturation 97% 06/08/2023 2:34 PM EST Inhaled Oxygen Concentration - - Weight 80.1 kg (176 lb 9.6 oz) 10/24/2023 9:14 A M EDT Height 180 cm (5' 10.88 ) 10/24/2023 9:14 AM EDT Body Mass Index 24.71 10/24/2023 9:14 AM EDT Plan of Treatment Upcoming Encounters Date Type Department Care Team (Late st Contact Info) Description 05/19/2024 1:45 PM EST Office Visit [facility] [address] [place] [address] [facility] [address] [place] [address] Health Maintenance Due Date Last Done Comments CT Colonography 1950 Colonoscopy 1950 Colorectal Cancer Screening 1950 FIT DNA/Cologuard 1950 FIT 1950 FOBT 1950 Sigmoidoscopy 1950 Dental Oral Exam 10/11/2023 04/10/2023 Dental Prophylaxis 10/14/2023 04/13/2023 COVID-19 Vaccine ( season) 2023 10/28/2021, 03/10/2021, 07/25/2020, Additional history exists Influenza Vaccine (#1) 2023 01/31/2023, 2021 Dental X-Ray: Bitewings 04/11/2024 04/10/2023, 03/22 SDOH Screening 09/13/2024 09/14/2023 Alcohol/Substance Use Screening 10/23/2024 10/24/2023 Depression Screening 10/23/2024 10/24/2023, 10/24/19 Diabetes: Hemoglobin A1C 10/23/2024 024, 04/18/2023, 08/31/2021 Tobacco Screening 10/23/2024 10/24/2023 Dental X-Ray: Full Mouth 04/11/2026 04/10/2023 Lipid Panel 10/23/2028 10/24/2023, 01/22, 07/17/2022, Additional history exists DTaP/Tdap/Td Vaccines (2 - Td or Tdap) 10/15/2031 10/14/2021 Hepatitis C Screening Completed 08/31/2021 Zoster Vaccines Completed 11/07/2021, 08/31/2021 Pneumococcal Vaccine: 65+ Years Completed 01/31/2023, 08/31/2021 RSV Patients and Patients Aged 60 years or older Completed 03/19/2023 HIB Vaccines Aged Out No longer eligi ble based on patient's age to complete this topic HPV Vaccines Aged Out No longer eligi ble based on patient's age to complete this topic Hepatitis A Vaccines Aged Out No long er eligible based on patient's age to complete this topic Hepatitis B Vaccines Aged Out No long er eligible based on patient's age to complete this topic IPV Vaccines Aged Out No longer eligi ble based on patient's age to complete this topic Meningococcal Vaccine Aged Out No charo nusrat eligible based on patient's age to complete this topic RSV under 20 months Aged Out No longe r eligible based on patient's age to complete this topic Rotavirus Vaccines Aged Out No longer eligible based on patient's age to complete this topic Goals Goal Patient Goal Type Associated Problems Recent Progress Patient-Stated? Author Blood Pressure < 150/90 Blood Pressure 112/80( 024 9:43 AM EDT) No Jairon Daly Procedures Procedure Name Priority Date/Time Associated Diagnosis Comments HEMOGLOBIN A1C Routine 10/24/2023 10:00 AM EDT Prediabetes LIPID PANEL, STANDARD Routine 10/24/2023 10:00 AM EDT Prediabetes Full PROPHYLAXIS - ADULT Routine 04/13/2023 11:00 AM EST DIAGNOSTIC - DIAGNOSTIC IMAGING - INTRAORAL - COMPREHENSIVE SERIES OF RADIOGRAPHIC IMAGES Routine 04/10/2023 11:00 AM EST COMPREHENSIVE ORAL EVALUATION - NEW OR ESTABLISHED PATIENT Routine 04/10/2023 11:00 AM EST ZZZ HISTORICAL HEPATITIS C AB W/REFL TO HCV RNA, QN, PCR Routine 08/31/2021 10:56 AM EDT from Last 3 Months or Most Recently Relevant to Health Maintenance Results * Hemoglobin A1c (10/24/2023 10:00 AM EDT) Hemoglobin A1c 6.0 <6.0 % [facility] Comment:Hemoglobin A1C Refer ence Range Adults: 4.8 - 6.0 % Non diabetic: < 6.0 % Goal: < 7.0 %Additional Action Suggested: > 8.0 %Note: Hemoglobin A1c results are invalid for patients with abnormal amounts of HbF. Blood transfusions may impact the HbA1c concentration in the patient sample. Estimated Average Glucose 126 mg/dL [facility] Comment:eAG = Estimated ave rage glucose which is %A1C expressed asaverage glucose, using the formula of the Q9R-MsotulhVkhoyoh Glucose study (ADAG), Diabetes Care, Vol.31,#8,Nov. 2007 Blood Venous blood specimen / Unknown 10/24/2023 10:00 AM EDT 10/24/2023 1:11 PM EDT [facility] LAB BLOOD ORDERABLES Final Re sult Performing Organization Address City/[facility]/ZIP Co de Phone Number [facility] [address] [place] [address] [phone] * (ABNORMAL) Lipid Panel, Standard (10/24/2023 10:00 AM EDT) Triglycerides 139 <150 mg/dL [facility] Comment:Desirable Triglyceri de: less than 150 mg/dLBorderline High Triglyceride 150-199 mg/dLHigh Triglyceride: 200-499 mg/dLVery High Triglyceride: greater than or equal to 5OO mg/dL Cholesterol 218(H) <200 mg/dL [facility] Comment:Desirable Cholestero l: less than 200 mg/dLBorderline High Cholesterol: 200-239 mg/dLHigh Cholesterol: greater than 239 mg/dL LDL Cholesterol Calculated 150(H) <100 mg/dL [facility] Comment:Desirable LDL: less than 100 mg/dLNear Optimal/Above Optimal LDL: 110- 129 mg/dLBorderline High LDL: 130-159 mg/dLHigh LDL: 160-189 mg/dLVery High LDL: greater than or equal to 190 mg/dL HDL Cholesterol 41 >40 mg/dL [facility] Comment:Desirable HDL: great er than 40 mg/dL Note: This HDL assay may give artificially low results in patients with liver disease. Blood Venous blood specimen / Unknown 10/24/2023 10:00 AM EDT 10/24/2023 1:14 PM EDT [facility] LAB BLOOD ORDERABLES Final Re sult Performing Organization Address City/[facility]/ZIP Co de Phone Number [facility] [address] [place] [address] [phone] * HEPATITIS C AB W/REFL TO HCV RNA, QN, PCR (08/31/2021 10:56 AM EDT) HEPATITIS C ANTIBODY NON-REACT [facility] NON-REACT [facility] INDEX 0.01 <1.00 [facility] Comment: ?? HCV antibody was non-reactive. There is no laboratory ?? evidence of HCV infection. ?? In most cases, no further action is required. However, if recent HCV exposure is suspected, a test for HCV RNA (test code 26895) is suggested. ?? For additional information please refer to [email or web address] (This link is being provided for informational/ educational purposes only.) ?? 08/31/2021 10:5 6 AM EDT [facility] COOPERATIVE MANAGER HISTORICAL/NON ORDERABLE LABS Final Result [facility], [facility] from Last 3 Months or Most Recently Relevant to Health Maintenance Insurance [facility] STANDARD [facility] DUAL COMPLETE DENTAL-[facility] MEDICAID STAND ADULT Care Teams Edging Machine Operator Relationship Specialty Start Date End Date SparksShelly FNP [address] [place] [phone] PCP - General Family Medicine 10/14/21
--- OUTSIDE RECORDS SUMMARY | 2024-05-14 16:27 | XMS_ITS | Encounter Summary ---
Author Organization [employer] Address [address] [facility] [facility] [address] [place] [address] Care Team Providers Care Automotive Manager Name Role Phone [facility] Primary Care Provider [phone] Reason for Visit * Reason Comments Med Refill Encounter Details Date Type Department Care Team ([facility] st Contact Info) Description 05/14/2024 Refill [facility] MEDICINE [address] [place], [place] [phone] [facility] [address] [place], [place] [phone] Social History Tobacco Use Types Packs/Day Years Used Date Smoking Tobacco: Former Cigarettes Passive Smoke Exposure: Current Smokeless Tobacco: Never Alcohol Use Standard Drinks/Week Comments Never 0 [...] Orientation Straight 02/20/2022 10 :39 AM EDT documented as of this encounter Plan of Treatment Upcoming Encounters Date Type Department Care Team (Late st Contact Info) Description 05/19/2024 1:45 PM EST Office Visit [facility] MEDICINE [address] [place] [address] Shelly Edwards FNP [address] [place] [address] documented as of this encounter Goals Goal Patient Goal Type Associated Problems Recent Progress Patient-Stated? Author Blood Pressure < 150/90 Blood Pressure 112/80( 024 9:43 AM EDT) No Jairon Daly documented as of this encounter Visit Diagnoses Not on filedocumented in this encounter Additional Health Concerns Assessment Noted Time PHQ-9 Depression Total Score: 0 10/24/19 24 9:21 AM EDT documented as of this encounter Care Teams Automotive Manager Relationship Specialty Start Date End Date Shelly Edwards FNP [address] [place] [address] PCP - General Family Medicine 10/14/21 documented as of this encounter
--- OUTSIDE RECORDS SUMMARY | 2024-05-14 16:27 | XMS_ITS | Encounter Summary ---
Author Organization [facility] Address [address] [facility] [address] [place] [address] Care Team Providers Care Clothes Drier Assembler Name Role Phone [facility] Primary Care Provider Encounter Details Date Type Department Care Team (Late st Contact Info) Description 03/29/2022 Orders Only [facility] MEDICINE [address] [place] [phone] Celia Padilla MD [address] [place], [place] [phone] Abnormal brain CT (Primary Dx) Social History Tobacco Use Types Packs/Day Years Used Date Smoking Tobacco: Never Assessed Sex and Gender Information Value Date Recorded Sex Assigned at Male 02/20/2022 10:39 AM EDT Legal Sex Male 10:39 AM EDT Gender Identity Male 02/20/2022 10:39 AM EDT Sexual Orientation Straight 02/20/2022 10 :39 AM EDT documented as of this encounter Plan of Treatment Upcoming Encounters Date Type Department Care Team (Late st Contact Info) Description 05/19/2024 1:45 PM EST Office Visit [facility] MEDICINE [address] [place] [phone] [facility] [address] [place] [address] Scheduled Orders Name Type Priority Associated Diagnoses Orde r Schedule MR Brain w/o Contrast Imaging Routine Abnormal brain CT Expected: 03/29/2022 (Approximate), Expires: 03/29/2023 documented as of this encounter Procedures Procedure Name Priority Date/Time Associated Diagnosis Comments PSA, TOTAL Routine 06/22/2022 1:10 PM EST Abnormal brain CT MR BRAIN WO CONTRAST Routine 03/30/2022 9:25 AM EST documented in this encounter Results * PSA,Total (06/22/2022 1:10 PM EST) Prostate Specific Antigen 2.12 <0.05 - 4.0 ng/mL [facility] Comment:PSA methodology: Starla Velazquez i ChemiluminescentMicroparticle Immunoassay (CMIA) 06/22/2022 1:10 PM EST 06/22/2022 1:10 PM EST us [facility] External Provider LAB BLO OD ORDERABLES Final Result [facility] [address] [place] [address] [phone] * MR Brain w/o Contrast (03/30/2022 9:25 AM EST) Anatomical Region Laterality Modality Brain Magnetic Resonan ce 03/30/2022 9:25 AM EST Narrative 2022 11:46 AM EST ? [facility] ?[address] ?[place] [address] ? Magnetic Resonance Report ? Signed ? Patient: Telly Florez ?MR#: [id number] ? : 1950 ?Acct:[id number] ? Age/Sex: 71 / M ?ADM Date: 03/30/22 ? Loc: HO.MRI ? Attending Dr: Milagros Ho MD ? Ordering Physician: Milagros Ho MD ?? Date of Service: 03/30/22 ?? Procedure(s): MR head/brain wo con ?? Accession Number(s): [id number] ? cc: Milagros Ho MD ? EXAMINATION: ?? MR BRAIN WITHOUT CONTRAST ? CLINICAL INFORMATION: ?? TIA ? COMPARISON: ?? CTA head and neck 03/09/2022 ? TECHNIQUE: ?? Multiplanar multisequence MR imaging of the brain was obtained without ?? intravenous contrast. ? FINDINGS: ? There is no acute infarct on diffusion-weighted imaging. ??There is no ?? intracranial hemorrhage on iron-sensitive imaging. ??No extra-axial ?? collection or mass effect/herniation. ??Normal parenchymal signal ?? characteristics. Chronic lacunar infarct in the left anterior centrum ?? semiovale. ? No hydrocephalus. ??The ventricles are normal in morphology and size. ? The major flow voids at the skull base are preserved. ? The midline structures are normal. ??The cerebellar tonsils are normally ?? positioned. ??The craniocervical junction is normal. ??Marrow signal is ?? within normal limits. ? The visualized soft tissues are without significant abnormality. ??No ?? signal abnormality within the paranasal sinuses or within the mastoid ?? air cells. ? MR/MR head/brain wo con ?? IMPRESSION: ? Chronic lacunar infarct involving the anterior left centrum semiovale. ?? Otherwise unremarkable noncontrast MRI of the brain. ? Dictated By: ?Aamir Martin ? Signed By: ?<Electronically signed by Aamir ??Veronica in [place]> ? 03/31/22 1143 ? DD/ 4 ? TD/TT: ? Data Analyst: ? Procedure Note Parth, Image - 06/01/2022 [place] [id number] Magnetic Resonance Report Signed Patient: Telly Florez#: [id number] : 9Acct:[id number] Age/Sex: 71 / MADM Date: 03/30/22 Loc: HO.MRI Attending Dr: Milagros Ho MD Ordering Physician: Milagros Ho MD Date of Service: 03/30/22 Procedure(s): MR head/brain wo con Accession Number(s): [id number] cc: Milagros Ho MD EXAMINATION: MR BRAIN WITHOUT CONTRAST CLINICAL INFORMATION: TIA COMPARISON: CTA head and neck 03/09/2022 TECHNIQUE: Multiplanar multisequence MR imaging of the brain was obtained without intravenous contrast. FINDINGS: There is no acute infarct on diffusion-weighted imaging. There is no intracranial hemorrhage on iron-sensitive imaging. No extra-axial collection or mass effect/herniation. Normal parenchymal signal characteristics. Chronic lacunar infarct in the left anterior centrum semiovale. No hydrocephalus. The ventricles are normal in morphology and size. The major flow voids at the skull base are preserved. The midline structures are normal. The cerebellar tonsils are normally positioned. The craniocervical junction is normal. Marrow signal is within normal limits. The visualized soft tissues are without significant abnormality. No signal abnormality within the paranasal sinuses or within the mastoid air cells. MR/MR head/brain wo con IMPRESSION: Chronic lacunar infarct involving the anterior left centrum semiovale. Otherwise unremarkable noncontrast MRI of the brain. Dictated By: Aamir Martin Signed By: <Electronically signed by Aamir Martin in [place]> 03/31/22 1143 DD/ 0925 TD/TT: Data Analyst: [facility] External Provider IMG MRI PROCEDURES Final Result documented in this encounter Visit Diagnoses Diagnosis Abnormal brain CT- Primary Nonspecific (abnormal) findings on radiological and other examination of skull and head documented in this encounter Care Teams Clothes Drier Assembler Relationship Specialty Start Date End Date Shelly Edwards FNP [address] [place] [phone] PCP - General Family Medicine 10/14/21 documented as of this encounter
--- OUTSIDE RECORDS SUMMARY | 2024-05-14 16:27 | XMS_ITS | Encounter Summary ---
Author Organization [employer] Address [address] [facility] [address] [place] [address] Care Team Providers Care Digital Marketing Specialist Name Role Phone Shelly Edwards [facility] Primary Care Provider [phone] Reason for Visit * Reason Comments Med Refill Encounter Details Date Type Department Care Team ([facility] st Contact Info) Description 04/07/2023 Refill [facility] MEDICINE [address] [place], [place] [phone] Name, MD [place] [address] [place] [address] Social History Tobacco Use Types Packs/Day Years Used Date Smoking Tobacco: Former Cigarettes Passive Smoke Exposure: Current Smokeless Tobacco: Never Alcohol Use Standard Drinks/Week Comments Never 0 (1 standard drink = 0.6 oz pur e alcohol) Depression Answer Date Recorded Patient Health Questionnaire-9 Score 0 11/23/2022 Housing Stability Answer Date Recorded What is your housing situation today? I have hernandez pelayo 02/09/[address] you li ve. Do you have problems with any of the following? None of the above 02/09/2023 Food Insecurity Answer Date Recorded Within the [...] Date Recorded Patient Health Questionnaire-2 Score 0 11/23/2022 Sex and Gender Information Value Date Recorded Sex Assigned at Male 02/20/2022 10:39 AM EDT Legal Sex Male 10:39 AM EDT Gender Identity Male 02/20/2022 10:39 AM EDT Sexual Orientation Straight 02/20/2022 10 :39 AM EDT documented as of this encounter Plan of Treatment Upcoming Encounters Date Type Department Care Team (Late st Contact Info) Description 05/19/2024 1:45 PM EST Office Visit [facility] MEDICINE [address] [place] [address] Shelly Edwards FNP [address] [place] [address] documented as of this encounter Goals Goal Patient Goal Type Associated Problems Recent Progress Patient-Stated? Author Blood Pressure < 150/90 Blood Pressure 112/80( 024 9:43 AM EDT) No Jairon Daly documented as of this encounter Visit Diagnoses Not on filedocumented in this encounter Additional Health Concerns Assessment Noted Time PHQ-9 Depression Total Score: 0 11/24/19 23 3:52 PM EDT documented as of this encounter Care Teams Digital Marketing Specialist Relationship Specialty Start Date End Date Shelly Edwards FNP [address] [place] [address] PCP - General Family Medicine 10/14/21 documented as of this encounter
--- OUTSIDE RECORDS SUMMARY | 2024-05-14 16:27 | XMS_ITS | Encounter Summary ---
Author Organization [employer] Address [address] [facility] [address] [place] [address] Care Team Providers Care Supervisor Drapery Hanging Name Role Phone [facility] Primary Care Provider [phone] Reason for Visit * Reason Comments Pre-visit Planning (Unable to reach for PVP screening, LVM) Encounter Details Date Type Department Care Team ([facility] Contact Info) Description 05/07/2024 Patient Outreach [facility] MEDICINE [address] [place], [place] [phone] [facility] [address] [place] [address] Pre-visit Planning ((Unable to reach for PVP screening, LVM)) Social History Tobacco Use Types Packs/Day Years [...] the past 12 months, has t he [employer] gas, oil or [employer] threatened to shut off services in your [...] AM EDT documented as of this encounter Progress Notes * Shelby Andrew - 05/07/2024 9:25 AM EST CC Shelby. Placed outbound call to patient to complete pre-visit planning. No answer at this time. Patient name and were not confirmed. CC left voicemail requesting return call. Direct contact information provided. documented in this encounter Plan of Treatment Upcoming Encounters Date Type Department Care Team (Late st Contact Info) Description 05/19/2024 1:45 PM EST Office Visit [facility] MEDICINE [address] [place] [address] [facility] [address] [place] [address] documented as of this encounter Goals Goal [...] documented as of this encounter Care Teams Supervisor Drapery Hanging Relationship Specialty Start Date End Date Shelly Edwarsd FNP [address] [place] [phone] PCP - General Family Medicine 10/14/21 documented as of this encounter
== END 2024-05-14 15:17 | disposition home or self-care (01) ==
PROVIDERS: PCP Registered Nurse; Visit Provider Urology
DX: N39.0 Urinary tract infection, site not specified (principal); N40.0 Benign prostatic hyperplasia without lower urinary tract symptoms; N48.1 Balanitis; Z13.9 Encounter for screening, unspecified
CPT/HCPCS: 99213

== ENCOUNTER → 2024-05-14 14:07 | Outpatient (BNVA) | payer MEDICARE, MEDICAID, SELFPAY | PROVIDERS: PCP Registered Nurse; Visit Provider Urology | DX: N39.0 Urinary tract infection, site not specified (principal); N40.0 Benign prostatic hyperplasia without lower urinary tract symptoms; N48.1 Balanitis | CPT/HCPCS: 51798; 81003; 99212 ==

== ENCOUNTER 2024-09-04 13:53 | Outpatient (REF) | payer MEDICARE, MEDICAID, SELFPAY ==
--- NOTE | ~2024-09-04 | CT_ITS ---
CLINICAL HISTORY: F17.210 - Nicotine dependence, cigarettes, uncomplicated CT lung cancer screening (LDCT) Comparison: None Technique: Axial CT images of the chest using low-dose technique. Referring provider counseled the patient on shared decision-making for LDCT screening. Additional counseling was provided on smoking cessation. Effective radiation dose total: DLP 8.5 mGycm, CTDIvol 1.4 mGy. Findings: 2.1 cm hypodense right thyroid nodule is present. There is no mediastinal, hilar, or axillary lymphadenopathy. The heart is normal in size. There is a trace pericardial effusion. Coronary artery calcifications are present. [id number] centrilobular and paraseptal emphysema is present. No suspicious pulmonary nodule is identified. Limited examination of the upper abdomen demonstrates a somewhat masslike appearance of the partially visualized right mid kidney. No acute osseous abnormality is identified. No aggressive lytic or blastic lesion is seen. Impression: 1. No suspicious pulmonary nodule is identified (Lung Rads 1). Recommend continued annual low-dose screening CT chest in 12 months. 2. 2.1 cm hypodense right thyroid nodule. Recommend correlation with thyroid ultrasound exam. 3. Masslike appearance of the partially visualized right mid kidney. Recommend CT renal mass protocol for further evaluation. Category 1: Normal; continue annual screening Category 2: Benign appearance or behavior, continue annual screening Category 3: Probably benign, [address] recommended Category 4A: Suspicious, [address] recommended; may consider PET/CT Category 4B: Suspicious, Additional diagnostics and/or tissue sampling recommended Category 4X: Suspicious, Additional diagnostics and/or tissue sampling recommended Category 0: Recalls (incomplete screen due to Incomplete coverage, Noise, Respiratory motion, Expiration, Obscured by acute abnormality) This document has been electronically signed by: Hussain العراقي on 09/05/2024 09:00:27
--- OUTSIDE RECORDS SUMMARY | 2024-09-04 14:33 | XMS_ITS | Clinical Summary ---
Author Organization [employer] Address [address] [facility] 7t [place] [address] Care Team Providers Care Telephone Station Installer Name Role Phone Grace [facility] Primary Care Provider [phone] Allergies No known active allergies Medications polyethylene glycol, PEG, 3350 (MiraLax) 17 GM/SCOOP powderIndication s:Constipation, unspecified constipation type Take 17 g by mouth in the morning. Dissolve in 8 oz of fluid 527 g 2 06/08/19 24 Active triamcinolone (Kenalog) 0.025 % creamIndications :Rash and nonspecific skin eruption Apply topically 2 times daily. 80 g 10/24/19 24 Active rosuvastatin (Crestor) 40 MG tablet TAKE 1 TABLET BY MOUTH AT BEDTIME 90 tablet 1 05/14/19 25 Active glucose blood (OneTouch Verio) test stripIndications :Prediabetes USE DIRECTED TO TEST BLOOD SUGAR EVERY DAY IN THE MORNING 100 strip 12 06/11/19 25 Active Lancets (OneTouch Delica Plus [id number]) miscIndications: Prediabetes USE DIRECTED TO TEST BLOOD SUGAR EVERY DAY 100 each 12 06/11/19 25 Active olmesartan (BENIcar) 5 MG tabletIndication s:Hypertension, unspecified type TAKE 1 TABLET BY MOUTH EVERYDAY AT NOON 90 tablet 1 06/11/19 25 Active chlorthalidone (Hygroton) 25 MG tabletIndication s:Primary hypertension TAKE 1/2 TABLET BY MOUTH EVERY DAY 45 tablet 1 06/28/19 25 Active Aspirin Low Dose 81 MG EC tablet TAKE 1 TABLET BY MOUTH EVERY MORNING 90 tablet 3 07/12/19 25 Active terazosin (Hytrin) 10 MG capsule Take 10 mg by mouth at bedtime. 10/01/19 24 Active donepezil (Aricept) 5 MG tablet Take 1 tablet (5 mg) by mouth at bedtime. 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 Pt previously referred to [facility] Endo-denies due to not accepting new patients. [facility] endo does not accept patient insurance ?? [facility] endo referral pending. Will task RN's to follow up. Provided patient with contact information as well ?? Repeat TSH Assessment & Plan (12/04/2022 2:48 PM EDT): Call placed to [facility] endo. They report previously mailed letter to patient that they are not taking new patients at this time. Spoke with referrals team. Patient insurance not accepted by [facility]. Referral placed to [facility]. Patient will call to make initial appointment. Lacunar infarction 12/04/2022 Assessment & Plan (04/25/2023 3:02 PM EST): Seen on CT scan on 02/2023, no change on the one on 04/18/23 No hx recurrent falls. Fu with PCP re assistance for some ADLs, info re [facility] [employer] program was given to his daughter to fu with them (reached out Unsuccessfully by our CM program) Moderate dementia without be havioral disturbance, psychotic disturbance, mood disturbance, or anxiety 09/05/2022 Overview (12/04/2022): 03/2022 Brain MRI Chronic [...] in enrolling. ?? Pt also interested in [employer] hours ?? Will refer to [employer] maintenance 07/21/2022 Overview (02/13/2023): CRC: 2019 in [place], normal per patient report. records unavailable PSA:06/2022 2.12 Vision: [facility]: Discuss at f/u HIV: 08/2021, neg [...] 08/31/2021 Overview (07/21/2022): - Last seen by [facility] urology, Dr. Rios 11/2021 at which time medications (finasteride and terazosin) were d/c. Patient was doing well and was advised to f/u PRN - Hx of recurrent cystitis with previous abx resistance - 09/2020 admitted to [facility] w/ pyelonephritis. CT at this time w/ [...] Encounters Date Type Department Care Team Description 09/01/2024 Refill [facility] MED [facility] PEDS [address] [facility] [place] [address] Shelly Edwards FNP 08/28/2024 8:00 AM EDT Office Visit [facility] ADULT DENTAL [address] [facility] [place] [address] Rae Pressley, DDS 08/22/[address] [address] Shelly Edwards FNP Appointment Request 08/20/2024 2:45 PM EDT Telemedicine [address] [address] Shelly Edwards FNP Moderate dementia without behavioral disturbance, psychotic disturbance, mood disturbance, or anxiety, unspecified dementia type (CMS/HCC) (Primary Dx); Dizziness 08/20/[address] [address] Shelly Edwards FNP telephone call 08/20/2024 Travel 08/18/[address] [address] Shelly Edwards FNP Chart prep 08/06/2024 8:00 AM EDT Office Visit [facility] ADULT DENTAL [address] [facility] [place] [address] Rae Pressley, DDS 08/06/[address] [address] Shelly Edwards FNP Message from pcp 07/31/2024 2:30 PM EDT Office Visit [facility] ADULT DENTAL [address] [place] [address] Rae Pressley, DDS 07/17/2024 2:30 PM EDT Clinical Support [address] [address] Lana Quintana RN Mild cognitive impairment [G31.84] 07/17/2024 Travel 07/11/[address] [address] Shelly Edwards FNP 07/07/2024 2:00 PM EDT Office Visit [facility] ADULT [facility] [address] [place], [place] [phone] Carson Abrams Dental calculus (Primary Dx) 07/03/2024 Telephone [facility] MEDICINE [address] [place] [address] [facility] Lung screening referral 06/30/2024 Telephone [facility] [address] [place], [place] [phone] [facility] 06/27/2024 2:30 PM EST Office Visit [facility] MEDICINE [address] [place] [address] [facility] Primary hypertension (Primary Dx); Mild cognitive impairment; Dizziness; Encounter for immunization; Dietary counseling; Exercise counseling; Encounter for screening for lung cancer 06/27/2024 Travel 06/10/2024 Refill [facility] MED[facility] [address] [place] [address] [facility] Primary hypertension 06/10/2024 Refill [facility] MED[facility] [address] [place] [address] Esther Stuart MD Prediabetes; Primary hypertension; Hypertension, unspecified type 06/10/2024 Refill [facility] MED[facility] [address] [place], [place] [phone] [facility] Primary hypertension; Hypertension, unspecified type from Last 3 Months Immunizations Immunization Administration Dates Next Due Influenza High-dose Quadriva lent Preservative Free 01/31/2023,03/14/2022 Influenza, seasonal, injecta ble, preservative free 06/27/2024 Moderna Covid-19 Vaccine 12+ 03/10/2021,07/26/19 21,06/26/2020 Pneumococcal Conjugate PCV 20 01/31/2023 Pneumococcal Polysaccharide PPSV23 08/31/2021 RSV Bivalent 03/19/2023 Tdap 10/14/2021 Zoster, Recombinant 11/07/2021,08/31/2021 Family History Medical History Relation Name Comments Alzheimer's disease Mother's Brother Alzheimer's disease Mother's Sister Relation Name Status Comments Mother's Brother Mother's Sister Social History Tobacco Use Types Packs/Day Years Used Date Smoking Tobacco: Former Cigarettes Passive Smoke Exposure: Past Smokeless Tobacco: Never Tobacco Cessation:Counseling Given: Not [...] Answer Date Recorded Patient Health Questionnaire-2 Score 1 08/20/2024 Internet Access Answer Date Recorded Internet Access Q1 No 06/27/2024 Internet Access Q2 I do not want or need it 10/2024 Sex and Gender Information Value Date Recorded Sex Assigned at Male 02/20/2022 10:39 AM EDT Legal Sex Male 10:39 AM EDT Gender Identity Male 02/20/2022 10:39 AM EDT Sexual Orientation Straight 02/20/2022 10 :39 AM EDT Last Filed Vital Signs Vital Sign Reading Time Taken Comments Blood Pressure 126/78 08/28/2024 8:11 AM EDT Pulse 65 07/07/2024 1:55 PM EDT Temperature 36.3 ??C (97.3 ??F) 06/27/2024 2:44 PM ES T Respiratory Rate 20 06/27/2024 2:44 PM EST Oxygen Saturation 97% 06/08/2023 2:34 PM EST Inhaled Oxygen Concentration - - Weight 82.6 kg (182 lb 3.2 oz) 06/27/2024 2:44 P M EST Height 177.8 cm (5' 10 ) 06/27/2024 2:44 PM EST Body Mass Index 26.14 06/27/2024 2:44 PM EST Plan of Treatment Upcoming Encounters Date Type Department Care Team (Late st Contact Info) Description 09/08/2024 3:00 PM EDT Clinical Support [facility] [address] [place] [address] 11/03/2024 2:00 PM EDT Office Visit [facility] MED[facility] [address] [place] [address] [facility] [address] [place] [address] Health Maintenance Due Date Last Done Comments CT Colonography 1950 Colonoscopy 1950 Colorectal Cancer Screening 1950 FIT DNA/Cologuard 1950 FIT 1950 FOBT 1950 Sigmoidoscopy 1950 COVID-19 Vaccine ( season) 2023 10/28/2021, 03/10/2021, 07/25/2020, Additional history exists Alcohol/Substance Use Screening 10/23/2024 10/24/2023 Diabetes: Hemoglobin A1C 10/23/2024 024, 04/18/2023, 08/31/2021 Dental Oral Exam 01/08/2025 07/07/2024, 04/10/2023 Dental Prophylaxis 01/08/2025 07/07/2024, 04/13/2023 SDOH Screening 06/27/2025 06/27/2024 Dental X-Ray: Bitewings 07/08/2025 07/08/19 25, 04/10/2023, 03/22/2023 Depression Screening 08/20/2025 08/20/2024, 10/24/19 Tobacco Screening 08/28/2025 08/28/2024 Dental X-Ray: Full Mouth 04/11/2026 04/10/2023 Lipid Panel 10/23/2028 10/24/2023, 01/22, 07/17/2022, Additional history exists DTaP/Tdap/Td Vaccines (2 - Td or Tdap) 10/15/2031 10/14/2021 Hepatitis C Screening Completed 08/31/2021 Zoster Vaccines Completed 11/07/2021, 08/31/2021 Pneumococcal Vaccine: 50+ Years Completed 01/31/2023, 08/31/2021 RSV Patients and Patients Aged 60 years or older Completed 03/19/2023 Influenza Vaccine Completed 06/27/2024, , 03/14/2022 HIB Vaccines Aged Out No longer eligi [...] patient's age to complete this topic Meningococcal B Vaccine Aged Out No l onger eligible based on patient's age to complete [...] Author Blood Pressure < 150/90 Blood Pressure 126/78( 025 8:11 AM EDT) No Jairon Daly Procedures Procedure Name Priority Date/Time Associated Diagnosis Comments 3 MO RESIN-BASED COMPOSITE - 2 SURF, POSTERIOR Routine 08/28/2024 8:00 AM EDT 15 M RESIN-BASED COMPOSITE - 1 SURF, POSTERIOR Routine 08/06/2024 8:00 AM EDT 21 B(V) RESIN-BASED COMPOSITE - 1 SURF, POSTERIOR Routine 08/06/2024 8:00 AM EDT 20 B(V) RESIN-BASED COMPOSITE - 1 SURF, POSTERIOR Routine 08/06/2024 8:00 AM EDT 4 MOD RESIN-BASED COMPOSITE - 3 SURF, POSTERIOR Routine 07/31/2024 2:30 PM EDT COMPREHENSIVE PERIODONTAL EVALUATION - NEW OR ESTABLISHED PATIENT Routine 07/07/2024 2:00 PM EDT PERIODIC ORAL EVALUATION - ESTABLISHED PATIENT Routine 07/07/2024 2:00 PM EDT CASE PRESENTATION, DETAILED AND EXTENSIVE TREATMENT PLANNING Routine 07/07/2024 2:00 PM EDT INTRAORAL - PERIAPICAL EACH ADDITIONAL RADIOGRAPHIC IMAGE Routine 07/07/2024 2:00 PM EDT INTRAORAL - PERIAPICAL FIRST RADIOGRAPHIC IMAGE Routine 07/07/2024 2:00 PM EDT ORAL HYGIENE INSTRUCTIONS Routine 07/07/2024 2:00 PM EDT BITEWINGS - 4 RADIOGRAPHIC IMAGES Routine 07/07/2024 2:00 PM EDT Full PROPHYLAXIS - ADULT Routine 07/07/2024 2:00 PM EDT 2 O AMALGAM FILLING Routine 07/07/2024 1 2:00 AM EDT 3 MO AMALGAM FILLING Routine 07/07/2024 12:00 AM EDT HEMOGLOBIN A1C Routine 10/24/2023 10:00 AM EDT Prediabetes LIPID PANEL, STANDARD Routine 10/24/2023 10:00 AM EDT Prediabetes INTRAORAL - COMPLETE SERIES OF RADIOGRAPHIC IMAGES Routine 04/10/2023 11:00 AM EST ZZZ HISTORICAL HEPATITIS C AB W/REFL TO HCV RNA, QN, PCR Routine 08/31/2021 10:56 AM EDT from Last 3 Months or Most Recently Relevant to Health Maintenance Results * Hemoglobin A1c (10/24/2023 10:00 AM EDT) Hemoglobin A1c 6.0 <6.0 % [facility] Comment:Hemoglobin A1C Refer ence Range Adults: 4.8 - 6.0 % Non diabetic: < 6.0 % Goal: < 7.0 %Additional Action Suggested: > 8.0 %Note: Hemoglobin A1c results are invalid for patients with abnormal amounts of HbF. Blood transfusions may impact the HbA1c concentration in the patient sample. Estimated Average Glucose 126 mg/dL [facility] Comment:eAG = Estimated ave rage glucose which is %A1C expressed asaverage glucose, using the formula of the H4D-HupujedOqswizi Glucose study (ADAG), Diabetes Care, Vol.31,#8,Nov. 2007 Blood Venous blood specimen / Unknown 10/24/2023 10:00 AM EDT 10/24/2023 1:11 PM EDT [facility] [employer] LAB BLOOD ORDERABLES Final Re sult [facility] [address] [place] [address] [phone] * (ABNORMAL) Lipid Panel, Standard (10/24/2023 10:00 AM EDT) Triglycerides 139 <150 mg/dL [facility] Comment:Desirable Triglyceri de: less than 150 mg/dLBorderline High Triglyceride 150-199 mg/dLHigh Triglyceride: 200-499 mg/dLVery High Triglyceride: greater than or equal to 5OO mg/dL Cholesterol 218(H) <200 mg/dL [facility] Comment:Desirable Cholestero l: less than 200 mg/dLBorderline High Cholesterol: 200-239 mg/dLHigh Cholesterol: greater than 239 mg/dL LDL Cholesterol Calculated 150(H) <100 mg/dL [facility] Comment:Desirable LDL: less than 100 mg/dLNear Optimal/Above Optimal LDL: 110- 129 mg/dLBorderline High LDL: 130-159 mg/dLHigh LDL: 160-189 mg/dLVery High LDL: greater than or equal to 190 mg/dL HDL Cholesterol 41 >40 mg/dL [facility] Comment:Desirable HDL: great er than 40 mg/dL Note: This HDL assay may give artificially low results in patients with liver disease. Blood Venous blood specimen / Unknown 10/24/2023 10:00 AM EDT 10/24/2023 1:14 PM EDT [facility] LAB BLOOD ORDERABLES Final Re sult [facility] [address] [place] [address] [phone] * HEPATITIS C AB W/REFL TO HCV RNA, QN, PCR (08/31/2021 10:56 AM EDT) HEPATITIS C ANTIBODY NON-REACT LACHELLE NON-REACT LACHELLE [facility] INDEX 0.01 <1.00 [facility] Comment: ?? HCV antibody was non-reactive. There is no laboratory ?? evidence of HCV infection. ?? In most cases, no further action is required. However, if recent HCV exposure is suspected, a test for HCV RNA (test code 64687) is suggested. ?? For additional information please refer to http://Webstep.[employer]/faq/WLD57o2 (This link is being provided for informational/ educational purposes only.) ?? 08/31/2021 10:5 6 AM EDT [facility] [employer] HISTORICAL/NON ORDERABLE LABS Final Result Performing Organization Address City/[facility]/ZIP Co de Phone Number [facility] [address] from Last 3 Months or Most Recently Relevant to Health Maintenance Insurance [facility] STANDARD [facility] MEDICAID STAND ADULT Care Teams Telephone Station Installer Relationship Specialty Start Date End Date IssueShelly FNP [address] [place] [address] PCP - General Family Medicine 10/14/21
--- OUTSIDE RECORDS SUMMARY | 2024-09-04 14:33 | XMS_ITS | Encounter Summary ---
Author Organization [employer] Address [address] [facility] 7[address] [place] [address] Care Team Providers Care High Energy Forming Equipment Operator Name Role Phone Grace [facility] Primary Care Provider [phone] Encounter Details Date Type Department Care Team (Late st Contact Info) Description 03/29/2022 Orders Only [address] [address] Celia Padilla MD [address] [place], [place] [phone] Abnormal brain CT (Primary Dx) Social History [...] Description 09/08/2024 3:00 PM EDT Clinical Support [address] [phone] 11/03/2024 2:00 PM EDT Office Visit [address] [address] [place] [address] [address] Scheduled Orders Name Type Priority Associated Diagnoses [...] Specific Antigen 2.12 <0.05 - 4.0 ng/mL [facility] Comment:PSA methodology: Starla Velazquez i ChemiluminescentMicroparticle Immunoassay (CMIA) 06/22/2022 1:10 PM EST 06/22/2022 1:10 PM EST us [facility] External Provider LAB BLO OD ORDERABLES Final Result [facility] [address] [place] [phone] * MR Brain w/o Contrast (03/30/2022 9:25 AM EST) Anatomical Region Laterality Modality Brain Magnetic Resonan ce 03/30/2022 9:25 AM EST Narrative 2022 11:46 AM EST ? [facility] ?[address] ?[place] [address] ? Magnetic Resonance Report ? Signed ? Patient: Florez,Telly ?MR#: [id number] ? : 1950 ?Acct:[id number] ? Age/Sex: 71 / M ?ADM Date: 12//22 ? Loc: HO.MRI ? Attending Dr: Milagros Ho MD ? Ordering Physician: Milagros Ho MD ?? Date of Service: 03/30/22 ?? Procedure(s): MR head/brain wo con ?? Accession Number(s): [id number] ? cc: Milagros Ho MD ? EXAMINATION: [...] in OV> ? 03/31/22 1143 ? DD/ 0925 ? TD/TT: ? Creative Strategist: ? Procedure Note Donmirater, Image - 06/01/2022 [place] [address] Magnetic Resonance Report Signed Patient: Jim Florez#: [id number] : 9Acct:[id number] Age/Sex: 71 / MADM Date: 03/30/22 Loc: HO.MRI Attending Dr: Milagros Ho MD Ordering Physician: Milagros Ho MD Date of Service: 03/30/22 Procedure(s): MR head/brain wo con Accession Number(s): [id number] cc: Milagros Ho MD EXAMINATION: MR BRAIN [...] Aamir Martin in OV> 03/31/22 1143 DD/ 4 TD/TT: Creative Strategist: [facility] External Provider IMG MRI PROCEDURES Final Result documented in this encounter Visit Diagnoses Diagnosis Abnormal brain CT- Primary Nonspecific (abnormal) findings on radiological and other examination of skull and head documented in this encounter Care Teams High Energy Forming Equipment Operator Relationship Specialty Start Date End Date Shelly Edwards FNP [address] [place] [phone] PCP - General Family Medicine 10/14/21 documented as of this encounter
--- OUTSIDE RECORDS SUMMARY | 2024-09-04 14:33 | XMS_ITS | Encounter Summary ---
Author Organization [employer] Address [address] [facility] [address] 7[address] [place] [address] Care Team Providers Care Cremator Name Role Phone [facility] Primary Care Provider [phone] Reason for Visit * Reason Comments Med Refill Encounter Details Date Type Department Care Team ([facility] st Contact Info) Description 09/01/2024 Refill [facility] PEDS [address] [place], [place] [phone] [facility] [address] [place] [address] Social History Tobacco Use Types Packs/Day Years Used Date Smoking Tobacco: Former Cigarettes Passive Smoke Exposure: Past Smokeless Tobacco: Never Alcohol Use Standard Drinks/Week [...] Description 09/08/2024 3:00 PM EDT Clinical Support [facility] MEDICINE [address] [place] [address] 11/03/2024 2:00 PM EDT Office Visit [facility] [address] [place] [address] Shelly Edwards [address] [address] documented as of this encounter Goals Goal Patient Goal Type Associated Problems Recent Progress Patient-Stated? Author Blood Pressure < 150/90 Blood Pressure 126/78( 025 8:11 AM EDT) No Jairon Daly documented as of this encounter Visit Diagnoses Not on filedocumented in this encounter Additional Health Concerns Assessment Noted Time PHQ-9 Depression Total Score: 0 10/24/19 24 9:21 AM EDT documented as of this encounter Care Teams Cremator Relationship Specialty Start Date End Date Shelly Edwards FNP [address] [place] [address] PCP - General Family Medicine 10/14/21 documented as of this encounter
--- OUTSIDE RECORDS SUMMARY | 2024-09-04 14:33 | XMS_ITS | Encounter Summary ---
Author Organization [employer] Address [address] [facility] 7t [place] [address] Care Team Providers Care Farm Operator Name Role Phone [facility] Primary Care Provider [phone] Reason for Visit * Reason Comments Med Refill Encounter Details Date Type Department Care Team ([facility] st Contact Info) Description 06/10/2024 Refill [facility] [address] [place], [place] [phone] [facility] [address] [place] [address] Primary hypertension Social History Tobacco Use Types Packs/Day Years [...] Description 09/08/2024 3:00 PM EDT Clinical Support [facility] [address] [place] [phone] 11/03/2024 2:00 PM EDT Office Visit [facility] [address] [place] [address] Shelly Edwards [facility] [address] [place] [address] documented as of this encounter Goals Goal Patient Goal Type Associated Problems Recent Progress Patient-Stated? Author Blood Pressure < 150/90 Blood Pressure 126/78( 025 8:11 AM EDT) No Jairon Daly documented as of this encounter Visit Diagnoses Diagnosis Primary hypertension Unspecified essential hypertension documented in this encounter Additional Health Concerns Assessment Noted Time PHQ-9 Depression Total Score: 0 10/24/19 24 9:21 AM EDT documented as of this encounter Care Teams Farm Operator Relationship Specialty Start Date End Date Shelly Edwards [facility] [address] [place] [phone] PCP - General Family Medicine 10/14/21 documented as of this encounter
--- OUTSIDE RECORDS SUMMARY | 2024-09-04 14:34 | XMS_ITS | Encounter Summary ---
Author Organization [employer] Address [address] [facility] [address] [place] [address] Care Team Providers Care Sports Nutritionist Name Role Phone [place] [facility] Primary Care Provider [phone] Reason for Visit * Reason Comments Med Refill Encounter Details Date Type Department Care Team ([facility] st Contact Info) Description 04/07/2023 Refill [facility] [address] [place], [place] [phone] Name, MD [place] [address] [place] [address] Social History Tobacco Use Types Packs/Day Years [...] the past 12 months, has 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 [employer]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 threatened to shut [...] Description 09/08/2024 3:00 PM EDT Clinical Support [facility] [address] [place] [address] 11/03/2024 2:00 PM EDT Office Visit [facility] [address] [place] [address] Shelly Edwards FNP [address] [place] [address] documented as of this encounter Goals Goal [...] documented as of this encounter Care Teams Sports Nutritionist Relationship Specialty Start Date End Date Shelly Edwards FNP [address] [place] [address] PCP - General Family Medicine 10/14/21 documented as of this encounter
== END 2024-09-04 13:54 | disposition home or self-care (01) ==
LOC: HO.CT 13:53
PROVIDERS: PCP Registered Nurse; Visit Provider Physician Assistant Medical
DX: Z12.2 Encounter for screening for malignant neoplasm of respiratory organs (principal); F17.210 Nicotine dependence, cigarettes, uncomplicated
CPT/HCPCS: 71271

== ENCOUNTER → 2024-09-04 13:56 | Outpatient (BNV) | payer MEDICARE, MEDICAID, SELFPAY | PROVIDERS: PCP Registered Nurse; Visit Provider Radiology Vascular & Interventional Radiology | DX: Z12.2 Encounter for screening for malignant neoplasm of respiratory organs (principal); F17.210 Nicotine dependence, cigarettes, uncomplicated; E04.1 Nontoxic single thyroid nodule | CPT/HCPCS: 71271 ==

== ENCOUNTER 2024-10-29 10:25 | Outpatient (REF) | payer MEDICARE, MEDICAID, SELFPAY ==
--- NOTE | ~2024-10-29 | MR_ITS ---
EXAMINATION: MR BRAIN WITHOUT CONTRAST CLINICAL INFORMATION: Dementia. COMPARISON: March 30, 2022. TECHNIQUE: MRI of the brain was obtained using routine sequences without contrast. FINDINGS: No restricted diffusion. No acute intracranial hemorrhage, mass effect, midline shift, hydrocephalus or herniation. Edouard-white matter differentiation is normal. Old lacunar infarct, body corpus callosum with the wallerian degeneration. Prominence of the extra-axial CSF spaces cerebral sulci and ventricles more pronounced in the frontoparietal and temporal poles. Old lacunar infarcts in the cerebellum and basal ganglia. Flow-void signal within the main cerebral vessels is normal. Sellar/suprasellar region demonstrated no signal abnormality or masses. Craniocervical junction demonstrates normal position of the cerebellar tonsils. Mucosal thickening, paranasal sinuses. 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 Atrophy, bifrontal temporal parietal poles. Electronically signed by: Humberto De Jesus MD 10/29/2024 11:22 AM EDT
--- OUTSIDE RECORDS SUMMARY | 2024-10-29 11:21 | XMS_ITS | Encounter Summary ---
Author Organization [employer] Address [address] [facility] 7t [place] [address] Care Team Providers Care Press Puller Name Role Phone [facility] Primary Care Provider [phone] Reason for Visit * Reason Comments Med Refill Encounter Details Date Type Department Care Team ([facility] st Contact Info) Description 06/10/2024 Refill [facility] MEDICINE [address] [place], [place] [phone] [facility] [address] [place] [address] Primary hypertension Social History Tobacco Use Types [...] Care Team (Late st Contact Info) Description 11/03/2024 2:00 PM EDT Office Visit [facility] MEDICINE [address] [place] [address] Shelly Edwards FNP [address] [place] [address] documented as of this encounter Goals Goal Patient Goal Type Associated Problems Recent Progress Patient-Stated? Author Blood Pressure < 150/90 Blood Pressure 135/78( 025 4:05 PM EDT) No Jairon Daly documented as of this encounter Visit Diagnoses Diagnosis Primary hypertension Unspecified essential hypertension documented in this encounter Additional Health Concerns Assessment Noted Time PHQ-9 Depression Total Score: 0 10/24/19 24 9:21 AM EDT documented as of this encounter Care Teams Press Puller Relationship Specialty Start Date End Date Shelly Edwards FNP [address] [place] [address] PCP - General Family Medicine 10/14/21 documented as of this encounter
== END 2024-10-29 10:26 | disposition home or self-care (01) ==
LOC: HO.MRI 10:25
PROVIDERS: PCP Registered Nurse; Visit Provider Registered Nurse
DX: F03.B0 Unspecified dementia, moderate, without behavioral disturbance, psychotic disturbance, mood disturbance, and anxiety (principal)
CPT/HCPCS: 70551

== ENCOUNTER → 2024-10-29 10:30 | Outpatient (BNV) | payer MEDICARE, MEDICAID, SELFPAY | PROVIDERS: PCP Registered Nurse; Visit Provider Radiology Diagnostic Radiology | DX: I63.81 Other cerebral infarction due to occlusion or stenosis of small artery (principal); G31.9 Degenerative disease of nervous system, unspecified | CPT/HCPCS: 70551 ==

== ENCOUNTER 2024-12-08 11:40 | Outpatient (REF) | payer MEDICARE, MEDICAID, SELFPAY ==
--- OUTSIDE RECORDS SUMMARY | 2024-12-08 13:03 | XMS_ITS | Encounter Summary ---
Author Organization [employer] Address [address] [facility] 7t [place] [address] Care Team Providers Care Brand Communications Manager Name Role Phone [facility] Primary Care Provider [phone] Reason for Visit * Reason Comments Med Refill Encounter Details Date Type Department Care Team ([facility] st Contact Info) Description 06/10/2024 Refill [facility] MEDICINE [address] [place], [place] [phone] [facility] [address] [place] [address] Primary hypertension Social History Tobacco Use Types [...] Care Team (Late st Contact Info) Description 12/08/2024 2:00 PM EDT Clinical Support [facility] MEDICINE [address] [place] [address] 12/09/2024 11:00 AM EDT Office Visit [facility] ADULT DENTAL [address] [place] [address] Km Braswell DDS [address] [place] [address] documented as of this encounter Goals Goal Patient Goal Type Associated Problems Recent Progress Patient-Stated? Author Blood Pressure < 150/90 Blood Pressure 130/84( 025 3:07 PM EDT) No Jairon Daly documented as of this encounter Visit Diagnoses Diagnosis Primary hypertension Unspecified essential hypertension documented in this encounter Additional Health Concerns Assessment Noted Time PHQ-9 Depression Total Score: 0 10/24/19 24 9:21 AM EDT documented as of this encounter Care Teams Brand Communications Manager Relationship Specialty Start Date End Date Shelly Edwards FNP [address] [place] [address] PCP - General Family Medicine 10/14/21 documented as of this encounter
--- OUTSIDE RECORDS SUMMARY | 2024-12-08 13:03 | XMS_ITS | Encounter Summary ---
Author Organization [facility] Address [address] [address] Phone Care Team Providers Care Mine Superintendent Name Role Phone Roopa Mcdonnell MD Primary Care Provider [phone] Encounter Details Date Type Department Care Team (Late st Contact Info) Description 02/13/2024 Procedure Pass [facility] [address] [place] [address] Social History Tobacco Use Types Packs/Day Years Used Date Smoking Tobacco: Former Cigarettes Q uit: 01/02/1964 Smokeless Tobacco: Never Alcohol Use Standard Drinks/Week Comments Never 0 (1 standard drink = 0.6 oz pur e alcohol) Education Answer Date Recorded Are you interested in more education? Not on leslie e 05/28/2023 Are you concerned about learning? Not on file 05/28/2023 No 05/28/2023 No 05/28/2023 Digital Access Answer Date Recorded No 05/28/2023 No 05/28/2023 Reliable internet access at home? Not on file 05/28/2023 Device with a working camera? Not on file Intimate Partner Violence Answer Date R ecorded Are you denied basic needs s uch as food, clothing, or medical care? No 02/13/2024 In the past 12 months have y ou been in a relationship with a person who hurts, threatens, or tries to control you? No 02/13/2024 Are you denied basic needs s uch as food, clothing, or medical care? No 02/13/2024 In the past 12 months have y ou been in a relationship with a person who hurts, threatens, or tries to control you? No 02/13/2024 Sex and Gender Information Value Date Recorded Sex Assigned at Not on file Legal Sex Male 4:40 PM EDT Gender Identity Not on file Sexual Orientation Not on file documented as of this encounter Plan of Treatment Upcoming Encounters Date Type Department Care Team (Late st Contact Info) Description 01/08/2025 2:45 PM EDT Appointment [facility] [address] [place] [address] Reno Daniels [address] [address] 02/05/2025 2:40 PM EDT Office Visit [facility] [address] [place] [address] Reno Daniels [address] [address] [place] documented as of this encounter Visit Diagnoses Not on filedocumented in this encounter Care Teams Mine Superintendent Relationship Specialty Start Date End Date Roopa Mcdonnell MD [address] [place] [address] PCP - General Internal Medicine 09/26/23 documented as of this encounter Additional Source Comments The information contained in this document represents components of the legal health record. It is not the complete legal health record.[facility]
[2024-12-08 14:28] LABS: Alanine Aminotransferase 30 U/L (0-40); Albumin Level 4.3 g/dL (3.5-5.0); Alkaline Phosphatase 83 U/L (39-117); Anion Gap 10 (12-20); Aspartate Amino Transferase 31 U/L (5-37); Blood Urea Nitrogen 14 mg/dL (9-16); Calcium 8.9 mg/dL (8.4-10.2); Carbon Dioxide 28 mmol/L (22-29); Chloride 105 mmol/L (96-108); Cholesterol 132 mg/dL (<200); Estimated Glomerular Filt Rate > 60; HDL Cholesterol 43 mg/dL (>40); Potassium 4.2 mmol/L (3.3-5.1); Sodium 139 mmol/L (135-145); Total Protein 6.9 g/dL (6.5-8.0); Triglycerides 89 mg/dL (<150)
[2024-12-08 14:49] LABS: Hemoglobin A1C 173.4623 umol/L; Total Hemoglobin (HGBA1C) 3993.2581 umol/L
== END 2024-12-08 11:41 | disposition home or self-care (01) ==
LOC: HO.CHCLDS 11:40
PROVIDERS: Visit Provider Registered Nurse
DX: I10 Essential (primary) hypertension (principal); Z13.1 Encounter for screening for diabetes mellitus
CPT/HCPCS: 36415; 80053; 80061; 83036

== ENCOUNTER 2025-01-22 14:15 | Outpatient (REF) | payer MEDICARE, MEDICAID, SELFPAY ==
--- OUTSIDE RECORDS SUMMARY | 2025-01-16 14:48 | XMS_ITS | Encounter Summary ---
Author Organization [facility] Address [address] [facility] [address] [place] [address] Phone Care Team Providers Care Linux System Engineer Name Role Phone Shelly Edwards [facility] Primary Care Provider [phone] Encounter Details Date Type Department Care Team (Latest Contact Info) Description 01/16/2025 2:48 PM EDT - 01/16/2025 11:59 PM EDT Hospital Encounter [facility], [address] [address] Reno Daniels, [address] [place] [address] [email or web address] Discharge Disposition: Home or Self Care Social History Tobacco Use Types Packs/Day Years [...] on file documented as of this encounter Medications at Time of Discharge amLODIPine (NORVASC) 10 MG tablet Take 10 mg by mouth daily. 09/26/2023 aspirin 81 MG EC tablet Take 81 mg by mouth every morning. 09/26/2023 chlorthalidone (HYGROTON) 25 MG tablet Take 25 mg by mouth daily. 09/26/2023 olmesartan (BENICAR) 5 mg tablet Take 5 mg by mouth daily. 09/26/2023 ONETOUCH DELICA PLUS LANCET 33 gauge Misc Inject 1 each into the skin every morning. 08/03/2023 ONETOUCH VERIO Strp strips 1 each by Percutaneous route every morning. 08/03/2023 rosuvastatin (CRESTOR) 40 MG tablet Take 40 mg by mouth nightly at bedtime. at bedtime. 08/03/2023 terazosin (HYTRIN) 10 MG capsule Take 10 mg by mouth nightly at bedtime. 10/01/2023 traMADoL (ULTRAM) 50 mg tablet Take 50 mg by mouth every 6 (six) hours as needed. 09/03/2023 documented as of this encounter Plan of Treatment Upcoming Encounters Date Type Department Care Team (Late st Contact Info) Description 02/05/2025 2:40 PM EDT Office Visit [facility] [address] [place] [address] [place] [address] Reno Daniels DO [address] [place] [address] [email or web address] documented as of this encounter Procedures Procedure Name Priority Date/Time Associated Diagnosis Comments US THYROID GLAND Routine 01/16/2025 3:22 PM EDT Nontoxic multinodular goiter documented in this encounter Results * US Thyroid Gland (01/16/2025 3:22 PM EDT) Anatomical Region Laterality Modality Neck, Head, Chest Ultrasound 01/16/2025 3:51 PM EDT Impressions 01/16/2025 4:04 PM EDT 1. 2.4 cm nodule in the lower pole of the right thyroid lobe is now as tall as wide and is categorized as TR2 (not suspicious). It is stable in size. 2. Stable mixed cystic and solid TR2 nodules within the left thyroid lobe, the largest measuring 1.5 cm located in the lower pole. 3. Currently, there are no nodules meeting criteria for imaging follow-up or sampling. Vita STRONG, Doris DEL RIO, Errol BARNES, et al. ACR Thyroid Imaging, Reporting and Data System (TI-RADS): White Paper of the ACR TI-RADS Committee. J Am Meaghan Radiol 2017;14:587-595. TI-RADS scale: 1 (0 pts), 2 (2 pts), 3 (3 pts), 4 (4 to 6 pts), 5 (>=7 pts). Vita STRONG, Doris DEL RIO, Errol BARNES, et al. ACR Thyroid Imaging, Reporting and Data System (TI-RADS): White Paper of the ACR TI-RADS Committee. J Am Meaghan Radiol 2017;14:587-595. TI-RADS scale: 1 (0 pts), 2 (2 pts), 3 (3 pts), 4 (4 to 6 pts), 5 (>=7 pts). Narrative 01/16/2025 4:04 PM EDT US THYROID GLAND Referring clinician's provided indication for this examination in Epic: Multinodular Goiter TECHNIQUE: Ultrasound of the thyroid. COMPARISON: Thyroid ultrasound 01/11/2024. FINDINGS: Right Thyroid: The right lobe measures in sagittal dimension. NODULE #1: 2.4 x 2.2 x 2.2 cm, lower lobe. This measured 2.7 x 2.3 x 2.1 cm on 01/11/2024 ---Mixed cystic and solid (<50% cystic) ( 1 pt), isoechoic ( 1 pt), wider than tall ( 0 pts), smooth margin ( 0 pts), no echogenic foci (0 pts). ---ACR TI-RADS total pts: 2; ACR TI-RADS risk category: 2. No right sided adenopathy is detected. Left Thyroid: The left lobe measures in sagittal dimension. NODULE #1: 10 x 10 x 9 mm, mid lobe ---Mixed cystic and solid (<50% cystic) ( 1 pt), isoechoic ( 1 pt), wider than tall ( 0 pts), smooth margin ( 0 pts), no echogenic foci (0 pts). ---ACR TI-RADS total pts: 2; ACR TI-RADS risk category: 2. NODULE #2: 15 x 14 x 10 mm, lower lobe ---Mixed cystic and solid (<50% cystic) ( 1 pt), isoechoic ( 1 pt), wider than tall ( 0 pts), smooth margin ( 0 pts), no echogenic foci (0 pts). ---ACR TI-RADS total pts: 2; ACR TI-RADS risk category: 2. There are other smaller mixed cystic and solid lesions without suspicious features. No left sided adenopathy is detected. Parathyroid: A parathyroid adenoma is not identified. Procedure Note Tex Chapin MD - 01/16/2025 US THYROID GLAND Referring clinician's provided indication for this examination in Epic:Multinodular Goiter TECHNIQUE: Ultrasound of the thyroid. COMPARISON: Thyroid ultrasound 01/11/2024. FINDINGS: Right Thyroid: The right lobe measures in sagittal dimension. NODULE #1: 2.4 x 2.2 x 2.2 cm, lower lobe. This measured 2.7 x 2.3 x 2.1cm on 01/11/2024 ---Mixed cystic and solid (<50% cystic) ( 1 pt), isoechoic ( 1 pt), widerthan tall ( 0 pts), smooth margin ( 0 pts), no echogenic foci (0 pts). ---ACR TI-RADS total pts: 2; ACR TI-RADS risk category: 2. No right sided adenopathy is detected. Left Thyroid: The left lobe measures in sagittal dimension. NODULE #1: 10 x 10 x 9 mm, mid lobe ---Mixed cystic and solid (<50% cystic) ( 1 pt), isoechoic ( 1 pt), widerthan tall ( 0 pts), smooth margin ( 0 pts), no echogenic foci (0 pts). ---ACR TI-RADS total pts: 2; ACR TI-RADS risk category: 2. NODULE #2: 15 x 14 x 10 mm, lower lobe ---Mixed cystic and solid (<50% cystic) ( 1 pt), isoechoic ( 1 pt), widerthan tall ( 0 pts), smooth margin ( 0 pts), no echogenic foci (0 pts). ---ACR TI-RADS total pts: 2; ACR TI-RADS risk category: 2. There are other smaller mixed cystic and solid lesions without suspiciousfeatures. No left sided adenopathy is detected. Parathyroid: A parathyroid adenoma is not identified. IMPRESSION: 1. 2.4 cm nodule in the lower pole of the right thyroid lobe is now astall as wide and is categorized as TR2 (not suspicious). It is stable insize. 2. Stable mixed cystic and solid TR2 nodules within the left thyroid lobe,the largest measuring 1.5 cm located in the lower pole. 3. Currently, there are no nodules meeting criteria for imaging follow-upor sampling. Vita STRONG, Doris DEL RIO, Errol EG, et al. ACR Thyroid Imaging, Reportingand Data System (TI-RADS): White Paper of the ACR TI-RADS Committee. J AmColl Radiol 2017;14:587-595. TI-RADS scale: 1 (0 pts), 2 (2 pts), 3 (3 pts), 4 (4 to 6 pts), 5 (>=7pts). Vita STRONG, Doris DEL RIO, Errol BARNES, et al. ACR Thyroid Imaging, Reportingand Data System (TI-RADS): White Paper of the ACR TI-RADS Committee. J AmColl Radiol 2017;14:587-595. TI-RADS scale: 1 (0 pts), 2 (2 pts), 3 (3 pts), 4 (4 to 6 pts), 5 (>=7pts). Reno Daniels DO IMG US THYROID Final Result documented in this encounter Visit Diagnoses Diagnosis Nontoxic multinodular goiter documented in this encounter Care Teams Linux System Engineer Relationship Specialty Start Date End Date Grace JOSE Smith [address] [place] [address] PCP - General Nurse Practitioner 01/16/25 documented as of this encounter Additional Source Comments The information contained in this document represents components of the legal health record. It is not the complete legal health record.[facility]
--- OUTSIDE RECORDS SUMMARY | 2025-01-19 13:00 | XMS_ITS | Encounter Summary ---
Author Organization [employer] Address [address] [facility] 7[address] [place] [address] Care Team Providers Care Analytics Lead Name Role Phone Grace Shelly DRAPERY HAND Primary Care Provider [phone] Reason for Visit * Reason Comments endo # 3 Encounter Details Date Type Department Care Team ([facility] st Contact Info) Description 01/19/2025 1:00 PM EDT Office Visit [facility] ADULT DENTAL [address] [place] [address] Km Braswell DDS [address] [place] [address] Social History Tobacco Use Types Packs/Day Years [...] Date Recorded Patient Health Questionnaire-9 Score 0 12/01/2024 Patient Health Questionnaire-9 Score 0 12/01/2024 Last PHQ-9: Questionnaire Data Not on file 0 12/01/2024 Housing Stability Answer Date Recorded What is [...] Date Recorded Patient Health Questionnaire-2 Score 0 12/01/2024 Internet Access Answer Date Recorded Internet Access Q1 No 06/27/2024 Internet Access Q2 I do not want or need it 10/2024 Sex and Gender Information Value Date Recorded Sex Assigned at Male 02/20/2022 10:39 AM EDT Legal Sex Male 10:39 AM EDT Gender Identity Male 02/20/2022 10:39 AM EDT Sexual Orientation Straight 02/20/2022 10 :39 AM EDT documented as of this encounter Last Filed Vital Signs Vital Sign Reading Time Taken Comments Blood Pressure 122/80 01/19/2025 1:03 PM EDT Pulse 69 01/19/2025 1:03 PM EDT Temperature - - Respiratory Rate - - Oxygen Saturation - - Inhaled Oxygen Concentration - - Weight - - Height - - Body Mass Index - - documented in this encounter Progress Notes * Km Braswell DDS - 01/19/2025 1:00 PM EDT Dental procedures in this visit [id number] - ENDODONTIC THERAPY, PREMOLAR TOOTH 13 (Completed) Service provider: Km Braswell DDS Billing provider: Porter Edmonds DDS [id number] - CASE PRESENTATION, DETAILED AND EXTENSIVE TREATMENT PLANNING (Completed) Service provider: Km Braswell DDS Billing provider: Porter Edmonds DDS Patient ID: Telly Pabon is a 74 y.o. male. Time Out: Date: 01/19/2025 Location: [facility] Tooth: #13 Procedure: Root Canal Verified the above with patient, assistant manager/embalmer, and provider. Confirmed via patient's chart, intraorally and by radiographs. Back Up Machine Operator: Yes. Language: Hebrew. Back Up Machine Operator's Name: DA. Beba & Km Braswell DDS. Root Canal Treatment done on # [address] Km Braswell DDS Risk, benefits, and alternatives discussed with the patient. CONSENT FORM INITIALED & SIGNED BY THE PATIENT AND COUNTERSIGNED BY Dr. Km Braswell DDS Medical history: Reviewed in EHR Vitals: Blood pressure 122/80, pulse 69. Allergies: Reviewed in EHR Medications: Reviewed in EHR - LA: 20% topical benzocaine; local infiltration with 1 carpule 4% septocaine/articaine 1:100,000 epinephrine - Rubber dam placed and tooth isolated. - Decay removed. - Access opening done. - Canals found: B and L - Canal length: B 21 mm & L 21 mm - Last HAND FILE used at apex: # 20 - Recapitulation done using size 15-20 hand files. - Irrigation done using Sodium Hypochlorite - Canal enlarged by CROWN DOWN TECHNIQUE/Step-back using ROTARY - RC prep (last file to apex was rotary / hand file size) - 1 PA taken of last file used. - Irrigation done using Sodium Hypochlorite - Canal dried using paper points. - Yesy-percha cone length confirmed with 1 PA - tug-back confirmed. - Canals sealed using root canal bioceramic sealer + size F1 yesy percha cone + accessory cones with lateral condensation. - Cotton pellet placed. - Temporary faith done using IRM - Post-obturation periapical radiograph taken - post op instructions given. - Rx: Amox 500 mg TID/7 days Ibuprofen 600 mg TID/7 days NV: RCT #3 Patient satisfied, left in stable condition Provider: Dr. Km Braswell DDS Truck Dock Material Mover: Ryan Duong Supervising Dentist: Dr. Edmonds * Porter Edmonds DDS - 01/19/2025 1:00 PM EDT Reviewed. Porter Edmonds DDS documented in this encounter Plan of Treatment Upcoming Encounters Date Type Department Care Team (Late st Contact Info) Description 02/02/2025 1:00 PM EDT Office Visit [facility] ADULT DENTAL [address] [facility], [place] [phone] Km Braswell DDS [address] [place] [address] 03/06/2025 2:30 PM EST Office Visit [facility] MEDICINE [address] [place], [place] [phone] Shelly Edwards FNP [address] [place] [address] documented as of this encounter Goals Goal Patient Goal Type Associated Problems Recent Progress Patient-Stated? Author Blood Pressure < 150/90 Blood Pressure 122/80( 025 1:03 PM EDT) No Jairon Daly documented as of this encounter Procedures Procedure Name Priority Date/Time Associated Diagnosis Comments 13 ENDODONTIC THERAPY, PREMOLAR TOOTH Routine 01/19/2025 1:00 PM EDT CASE PRESENTATION, DETAILED AND EXTENSIVE TREATMENT PLANNING Routine 01/19/2025 1:00 PM EDT documented in this encounter Visit Diagnoses Not on filedocumented in this encounter Additional Health Concerns Assessment Noted Time PHQ-9 Depression Total Score: 0 12/02/19 25 3:08 PM EDT documented as of this encounter Care Teams Analytics Lead Relationship Specialty Start Date End Date Shelly Edwards FNP [address] [place] [address] PCP - General Family Medicine 10/14/21 documented as of this encounter
--- NOTE | ~2025-01-22 | US_ITS ---
EXAMINATION: US RETROPERITONEAL LIMITED (RENAL ONLY) CLINICAL INFORMATION: Disorder of kidney.. COMPARISON: Correlated to CT dated November 15, 2020 . TECHNIQUE: Real-time ultrasound kidneys using grayscale technique. FINDINGS: RIGHT KIDNEY: 11 x 6 x 6 cm (SAG x AP x TRV). Volume: 193 cc. Isoechoic. Renal cortical thinning. No hydronephrosis. Questionable 2.2 cm exophytic hypoechoic lesion in the midportion. LEFT KIDNEY: 11 x 6 x 5 cm (SAG x AP x TRV). Volume: 188 cc. Isoechoic. Renal cortical thinning. No hydronephrosis. No gross solid or cystic lesion. US/US renal BI IMPRESSION: No hydronephrosis. Questionable 2.2 cm lesion/mass, right kidney.. CLINICAL INFORMATION: . COMPARISON: None available. TECHNIQUE: FINDINGS: RIGHT KIDNEY: cm (SAG x AP x TRV). The kidney is normal in size, contour, and echogenicity. Renal cortical thickness is normal. No calculi or focal parenchymal lesions. No hydronephrosis. LEFT KIDNEY: cm (SAG x AP x TRV). The kidney is normal in size, contour, and echogenicity. Renal cortical thickness is normal. No calculi or focal parenchymal lesions. No hydronephrosis. IMPRESSION: . Electronically signed by: Humberto De Jesus MD 01/22/2025 03:42 PM EDT
--- OUTSIDE RECORDS SUMMARY | 2025-01-22 15:51 | XMS_ITS | Clinical Summary ---
Author Organization [employer] Address [address] [facility] [address] [place] [address] Care Team Providers Care Grinder Set Up Operator Internal Name Role Phone [facility] Primary Care Provider [phone] Allergies No known active allergies Medications polyethylene glycol, PEG, 3350 (MiraLax) 17 GM/SCOOP powderIndication s:Constipation, unspecified constipation type Take 17 g by mouth in the morning. Dissolve in 8 oz of fluid 527 g 2 06/08/19 24 Active triamcinolone (Kenalog) 0.025 % creamIndications :Rash and nonspecific skin eruption Apply topically 2 times daily. 80 g 10/24/19 24 Active glucose blood (OneTouch Verio) test stripIndications :Prediabetes USE DIRECTED TO TEST BLOOD SUGAR EVERY DAY IN THE MORNING 100 strip 12 06/11/19 25 Active Lancets (OneTouch Delica Plus [id number]) miscIndications: Prediabetes USE DIRECTED TO TEST BLOOD SUGAR EVERY DAY 100 each 12 06/11/19 25 Active Aspirin Low Dose 81 MG EC tablet TAKE 1 TABLET BY MOUTH EVERY MORNING 90 tablet 3 07/12/19 25 Active terazosin (Hytrin) 10 MG capsule Take 10 mg by mouth at bedtime. 10/01/19 24 Active amLODIPine (Norvasc) 10 MG tablet TAKE 1 TABLET BY MOUTH EVERY MORNING 90 tablet 1 09/02/19 25 Active donepezil (Aricept) 10 MG tabletIndication s:Moderate dementia without behavioral disturbance, psychotic disturbance, mood disturbance, or anxiety, unspecified dementia type (CMS/HCC) (HCC) Take 1 tablet (10 mg) by mouth at bedtime. 30 tablet 11 12/02/19 25 026 Active Accu-Chek Softclix Lancets lancetsIndicatio ns:Type 2 diabetes mellitus without complication, without long-term current use of insulin (HCC) USE DIRECTED TO TEST BLOOD SUGAR EVERY DAY IN THE MORNING 100 each 3 12/17/19 Active glucose blood (Accu-Chek Guide Test) test stripIndications :Type 2 diabetes mellitus without complication, without long-term current use of insulin (HCC) USE DIRECTED TO TEST BLOOD SUGAR EVERY DAY IN THE MORNING 100 each 3 12/17/19 Active Blood Glucose Monitoring Suppl (Accu-Chek Guide Me) w/Device kitIndications:T ype 2 diabetes mellitus without complication, without long-term current use of insulin (HCC) USE DIRECTED TO TEST BLOOD SUGAR EVERY DAY IN THE MORNING 1 kit 12/17/19 25 Active olmesartan (BENIcar) 5 MG tabletIndication s:Hypertension, unspecified type TAKE 1 TABLET BY MOUTH EVERYDAY AT NOON 90 tablet 1 01/15/20 25 Active rosuvastatin (Crestor) 40 MG tablet TAKE 1 TABLET BY MOUTH AT BEDTIME 90 tablet 1 01/15/20 25 Active amoxicillin (Amoxil) 500 MG capsule Take 1 capsule (500 mg) by mouth every 8 (eight) hours for 7 days. 21 capsule 01/20/20 25 025 Active ibuprofen 600 MG tablet Take 1 tablet (600 mg) by mouth every 6 (six) hours if needed for mild pain for up to 20 doses. 20 tablet 01/20/20 25 Active rosuvastatin (Crestor) 40 MG tablet TAKE 1 TABLET BY MOUTH AT BEDTIME 90 tablet 1 05/14/19 25 025 Discontinued olmesartan (BENIcar) 5 MG tabletIndication s:Hypertension, unspecified type TAKE 1 TABLET BY MOUTH EVERYDAY AT NOON 90 tablet 1 06/11/19 25 025 Discontinued ibuprofen 600 MG tablet Take 1 tablet (600 mg) by mouth every 8 (eight) hours if needed for mild pain for up to 7 days. 20 tablet 12/18/19 25 025 amoxicillin (Amoxil) 500 MG capsule Take 1 capsule (500 mg) by mouth every 8 (eight) hours for 7 days. 21 capsule 12/18/19 25 025 Active Problems Problem Noted Date Diagnosed Date [...] as A1c is 6.1 Patient has underlying [employer]OSPECT[employer] vascular disease (probaly form HTN/hyperlipidemia) which they're [...] Assessment & Plan (02/13/2023 8:47 PM EDT): Pt previously referred to [facility] Endo-denies due to not accepting new patients. [facility] does not accept patient insurance [facility] endo referral pending. Will task RN's to follow up. Provided patient with contact information as well Repeat TSH Assessment & Plan (12/04/2022 2:48 PM EDT): Call placed to [facility] endo. They report previously mailed letter to patient that they are not taking new patients at this time. Spoke with referrals team. Patient insurance not accepted by [facility]. Referral placed to [facility]. Patient will call to make initial appointment. Lacunar infarction (CMS/HCC) 12/04/2022 Assessment & Plan (04/25/2023 3:02 PM EST): Seen on CT scan on 02/2023, no change on the one on 04/18/23 No hx recurrent falls. Fu with PCP re assistance for some ADLs, info re [facility] [employer] program was given to his daughter to fu with them (reached out Unsuccessfully by our CM program) Moderate dementia without be havioral disturbance, psychotic disturbance, mood disturbance, or anxiety (CMS/HCC) 09/05/2022 Overview (12/04/2022): 03/2022 Brain MRI Chronic lacunar infarct involving the anterior left centrum semiovale. Otherwise unremarkable noncontrast MRI of the brain. CBC, CMP, iron, b12, folic acid all WNL. Negative RPR, HIV. Minicog 08/2022: 3 Assessment & Plan (12/04/2022 3:09 PM EDT): Discussed importance of remaining active and social. Patient agrees that adult day program may be a good option. Will reach out to forms department to assist patient in enrolling. Pt also interested in [employer] hours Will refer to [facility] maintenance 07/21/2022 Overview (02/13/2023): CRC: 2019 in [place], normal per patient report. records unavailable PSA:06/2022 2.12 Vision: Eye and [facility]: Discuss at f/u HIV: 08/2021, neg Hepatitis: 08/2021, neg A1c: 5.9% 08/2021 ASCVD Risk score: >20%, Assessment & Plan (02/13/2023 8:46 PM EDT): Pt previously declines repeat CRC screening. Will continue to discuss at follow up Mixed hyperlipidemia 07/21/2022 Overview (07/21/2022): Rosuvastatin 40mg Former tobacco use 07/21/2022 Overview (07/21/2022): 50 pack year history, quit 2021 Negative CXR 08/2021 Benign prostatic hyperplasia 08/31/2021 Overview (07/21/2022): - Last seen by [facility] urology, Dr. Rios 11/2021 at which time medications (finasteride and terazosin) were d/c. Patient was doing well and was advised to f/u PRN - Hx of recurrent cystitis with previous abx resistance - 09/2020 admitted to [facility] w/ pyelonephritis. CT at this time w/ [...] Assessment & Plan (02/13/2023 8:51 PM EDT): STOP chlorthalidone 15mg Continue to monitor BP Contact HC if dizziness episodes return Patient verbalizes understanding and agrees to plan Assessment & Plan (12/04/2022 3:04 PM EDT): Well controlled Continue current regimen Assessment & Plan (07/21/2022 10:18 AM EDT): Well controlled, continue current regimen Repeat labs today Resolved Problems Problem Noted Date Diagnosed Date Resolved Date Hyperglycemia 04/25/2023 10/24/2023 Encounters Date Type Department Care Team Description 01/19/2025 1:00 PM EDT Office Visit [facility] [address] [place] [address] Km Braswell DDS 01/13/2025 Refill [facility] [address] [facility] [place], [place] [phone] Grace, Shelly, DIATHERMY EQUIPMENT REPAIRER Hypertension, unspecified type 01/06/2025 2:00 PM EDT Office Visit [facility] [address] [place], [place] [phone] Km Braswell DDS 12/17/2024 2:30 PM EDT Office Visit [facility] [address] [place] [address] Km Braswell, DDS 12/16/2024 Refill [facility] [address] [facility] [place] [address] Shelly Edwards FNP Type 2 diabetes mellitus without complication, without long-term current use of insulin (CMS/HCC) 12/09/2024 11:00 AM EDT Office Visit [facility] [address] [facility] [place] [facility] [place] [address] Km Braswell, DDS 12/08/2024 2:00 PM EDT Clinical Support [address] [address] Jacqui Crespo RN Impacted cerumen of left ear 12/08/2024 Results Follow-Up [facility] [address] [place] [phone] Shelly Edwards FNP Comprehensive Metabolic Panel, Hemoglobin A1c, Lipid Panel, Standard 12/08/2024 Travel 12/01/2024 3:15 PM EDT Office Visit [address] [address] Shelly Edwards FNP Moderate dementia without behavioral disturbance, psychotic disturbance, mood disturbance, or anxiety, unspecified dementia type (CMS/HCC) (Primary Dx); Impacted cerumen of left ear; Primary hypertension [I10]; Decreased hearing of both ears 12/01/2024 Travel 11/20/2024 Patient Outreach [facility] [address] [place] [phone] Shelly Edwards FNP Pre-visit Planning (SDOH screening completed on 06/27/2024) 11/05/2024 Orders Only [facility] [address] [place] [phone] Shelly Edwards FNP Moderate dementia without behavioral disturbance, psychotic disturbance, mood disturbance, or anxiety, unspecified dementia type (CMS/HCC) (Primary Dx) 11/05/2024 Results Follow-Up [facility] [address] [place] [phone] Shelly Edwards FNP MR Brain w/o Contrast 10/31/2024 Telephone [facility] [address] [place] [address] Shelly Edwards FNP chart prep 10/23/2024 Patient Outreach [facility] [address] [place] [address] Shelly Edwards FNP Pre-visit Planning ([facility] screening completed on 06/27/2024) from Last 3 Months Immunizations Immunization Administration [...] Pulse 69 01/19/2025 1:03 PM EDT Temperature 36.3 C (97.3 F) 12/01/2024 3:07 PM EDT Respiratory Rate 18 12/01/2024 3:07 PM EDT Oxygen Saturation 97% 09/08/2024 4:05 PM EDT Inhaled Oxygen Concentration - - Weight 81.1 kg (178 lb 12.8 oz) 12/01/2024 3:07 PM EDT Height 177.8 cm (5' 10 ) 12/01/2024 3:07 PM EDT Body Mass Index 25.66 12/01/2024 3:07 PM EDT Plan of Treatment Upcoming Encounters Date Type Department Care Team (Late st Contact Info) Description 02/02/2025 1:00 PM EDT Office Visit [facility] [address] [place] [address] Km Braswell, RUBÉN [address] [place] [address] 03/06/2025 2:30 PM EST Office Visit [facility] [address] [place] [address] Shelly Edwards, DIATHERMY EQUIPMENT REPAIRER [address] [place] [address] Health Maintenance Due Date Last Done Comments CT Colonography 1950 Colonoscopy 1950 Colorectal Cancer Screening 1950 FIT DNA/Cologuard 1950 FIT 1950 FOBT 1950 Sigmoidoscopy 1950 Diabetes: Foot Exam 1959 Eye Exam 1959 Diabetes: Urine Protein Screening 1968 COVID-19 Vaccine ( season) 2024 10/28/2021, 03/10/2021, 07/25/2020, Additional history exists Influenza Vaccine (#1) 2024 , 01/31/2023, 03/14/2022 Dental Oral Exam 01/08/2025 07/07/2024, 04/10/2023 Dental Prophylaxis 01/08/2025 07/07/2024, 04/13/2023 Diabetes: Hemoglobin A1C 06/10/2025 025, 10/24/2023, 04/18/2023, Additional history exists SDOH Screening 06/27/2025 06/27/2024 Dental X-Ray: Bitewings 07/08/2025 07/08/19 25, 04/10/2023, 03/22/2023 Alcohol/Substance Use Screening 12/01/2025 12/01/2024 Depression Screening 12/01/2025 12/01/2024, 12/02/19 Lipid Panel 12/08/2025 12/08/2024, 07/0 06/2023, 02/09/2023, Additional history exists Tobacco Screening 01/06/2026 01/06/2025 Dental X-Ray: Full Mouth 04/11/2026 04/10/2023 DTaP/Tdap/Td Vaccines (2 - Td or Tdap) [...] 025 1:03 PM EDT) No Jairon Daly Procedures Procedure Name Priority Date/Time Associated Diagnosis Comments US RENAL COMPLETE Routine 01/22/2025 2:5 4 PM EDT Kidney lesion, [place], right 13 ENDODONTIC THERAPY, PREMOLAR TOOTH Routine 01/19/2025 1:00 PM EDT CASE PRESENTATION, DETAILED AND EXTENSIVE TREATMENT PLANNING Routine 01/19/2025 1:00 PM EDT 3,13 LIMITED ORAL EVALUATION - PROBLEM FOCUSED Routine 01/06/2025 2:00 PM EDT RE-EVAL - POST-OP OFFICE VISIT Routine 01/06/2025 2:00 PM EDT 13 INTRAORAL - PERIAPICAL FIRST RADIOGRAPHIC IMAGE Routine 01/06/2025 2:00 PM EDT 1 EXTRACTION, ERUPTED TOOTH OR EXPOSED ROOT (ELEVATION/FORCEPS REMOVAL) Routine 12/17/2024 2:30 PM EDT CASE PRESENTATION, DETAILED AND EXTENSIVE TREATMENT PLANNING Routine 12/17/2024 2:30 PM EDT 2 EXTRACTION, ERUPTED TOOTH OR EXPOSED ROOT (ELEVATION/FORCEPS REMOVAL) Routine 12/17/2024 2:30 PM EDT UR PALLIATIVE (EMERGENCY) TREATMENT OF DENTAL PAIN - MINOR PROCEDURE Routine 12/09/2024 11:00 AM EDT 1,2,3 INTRAORAL - PERIAPICAL FIRST RADIOGRAPHIC IMAGE Routine 12/09/2024 11:00 AM EDT CASE PRESENTATION, DETAILED AND EXTENSIVE TREATMENT PLANNING Routine 12/09/2024 11:00 AM EDT RI REMOVAL IMPACTED CERUMEN IRRIGATION/LVG UNILAT Routine 12/08/2024 2:34 PM EDT Impacted cerumen of left ear LIPID PANEL, STANDARD Routine 12/08/2024 11:46 AM EDT Primary hypertension [I10] HEMOGLOBIN A1C Routine 12/08/2024 11:46 AM EDT Primary hypertension [I10] COMPREHENSIVE METABOLIC PANEL Routine 12/08/2024 11:46 AM EDT Primary hypertension [I10] AMB REFERRAL TO NEUROLOGY Routine 11/07/2024 Moderate dementia without behavioral disturbance, psychotic disturbance, mood disturbance, or anxiety, unspecified dementia type (CMS/HCC) MR BRAIN WO CONTRAST Routine 10/29/2024 9:34 AM EDT Moderate dementia without behavioral disturbance, psychotic disturbance, mood disturbance, or anxiety, unspecified dementia type (CMS/HCC) Full PROPHYLAXIS - ADULT Routine 07/07/2024 2:00 PM EDT BITEWINGS - 4 RADIOGRAPHIC IMAGES Routine 07/07/2024 2:00 PM EDT PERIODIC ORAL EVALUATION - ESTABLISHED PATIENT Routine 07/07/2024 2:00 PM EDT INTRAORAL - COMPLETE SERIES OF RADIOGRAPHIC IMAGES Routine 04/10/2023 11:00 AM EST ZZZ HISTORICAL HEPATITIS C AB W/REFL TO HCV RNA, QN, PCR Routine 08/31/2021 10:56 AM EDT from Last 3 Months or Most Recently Relevant to Health Maintenance Results * US Renal Complete (01/22/2025 2:54 PM EDT) Anatomical Region Laterality Modality Kidney Ultrasound 01/22/2025 2:54 PM EDT Narrative 01/22/2025 3:45 PM EDT [place] [address] Ultrasound Report Signed Patient: Telly Florez MR#: [id number] 87 : 1950 Acct:[id number] Age/Sex: 74 / M ADM Date: 01/22/25 Loc: HO.US Attending Dr: Shelly GARCIA Ordering Physician: Shelly Edwards Date of Service: 01/22/25 Procedure(s): US renal BI Accession Number(s): [id number] cc: Shelly Edwards [facility] Reason for Exam: DISORDER OF KIDNEY EXAMINATION: US RETROPERITONEAL LIMITED (RENAL ONLY) CLINICAL INFORMATION: Disorder of kidney.. COMPARISON: Correlated to CT dated November 15, 2020 . TECHNIQUE: Real-time ultrasound kidneys using grayscale technique. FINDINGS: RIGHT KIDNEY: 11 x 6 x 6 cm (SAG x AP x TRV). Volume: 193 cc. Isoechoic. Renal cortical thinning. No hydronephrosis. Questionable 2.2 cm exophytic hypoechoic lesion in the midportion. LEFT KIDNEY: 11 x 6 x 5 cm (SAG x AP x TRV). Volume: 188 cc. Isoechoic. Renal cortical thinning. No hydronephrosis. No gross solid or cystic lesion. US/US renal BI IMPRESSION: No hydronephrosis. Questionable 2.2 cm lesion/mass, right kidney.. CLINICAL INFORMATION: . COMPARISON: None available. TECHNIQUE: FINDINGS: RIGHT KIDNEY: cm (SAG x AP x TRV). The kidney is normal in size, contour, and echogenicity. Renal cortical thickness is normal. No calculi or focal parenchymal lesions. No hydronephrosis. LEFT KIDNEY: cm (SAG x AP x TRV). The kidney is normal in size, contour, and echogenicity. Renal cortical thickness is normal. No calculi or focal parenchymal lesions. No hydronephrosis. IMPRESSION: . Electronically signed by: Humberto De Jesus MD 01/22/2025 03:42 PM EDT Dictated By: Humberto Stover MD Signed By: <Electronically signed by Humberto Mejia MD in OV> 01/22/25 1542 DD/ 1454 TD/TT: 01/22/25 1508 Customer Services Coordinator: Procedure Note Donotuseinterpreter, Image - 01/22/[address] [address] Ultrasound Report Signed Patient: Telly Florez RMR#: [id number] [birth year] : 9Acct:[id number] Age/Sex: 74 / MADM Date: 01/22/25 Loc: HO.US Attending Dr: Shelly GARCIA Ordering Physician: Shelly Edwards Date of Service: 01/22/25 Procedure(s): US renal BI Accession Number(s): [id number] cc: Shelly Edwards Reason for Exam: DISORDER OF KIDNEY EXAMINATION: US RETROPERITONEAL LIMITED (RENAL ONLY) CLINICAL INFORMATION: Disorder of kidney.. COMPARISON: Correlated to CT dated November 15, 2020 . TECHNIQUE: Real-time ultrasound kidneys using grayscale technique. FINDINGS: RIGHT KIDNEY: 11 x 6 x 6 cm (SAG x AP x TRV). Volume: 193 cc. Isoechoic. Renal cortical thinning. No hydronephrosis. Questionable 2.2 cm exophytic hypoechoic lesion in the midportion. LEFT KIDNEY: 11 x 6 x 5 cm (SAG x AP x TRV). Volume: 188 cc. Isoechoic. Renal cortical thinning. No hydronephrosis. No gross solid or cystic lesion. US/US renal BI IMPRESSION: No hydronephrosis. Questionable 2.2 cm lesion/mass, right kidney.. CLINICAL INFORMATION: . COMPARISON: None available. TECHNIQUE: FINDINGS: RIGHT KIDNEY: cm (SAG x AP x TRV). The kidney is normal in size, contour, and echogenicity. Renal cortical thickness is normal. No calculi or focal parenchymal lesions. No hydronephrosis. LEFT KIDNEY: cm (SAG x AP x TRV). The kidney is normal in size, contour, and echogenicity. Renal cortical thickness is normal. No calculi or focal parenchymal lesions. No hydronephrosis. IMPRESSION: . Electronically signed by: Humberto De Jesus MD 01/22/2025 03:42 PM EDT RP Dictated By: Humberto Stover MD Signed By: <Electronically signed by Saundra Vogt OV> 01/22/25 1542 DD/ 1454 TD/TT: 01/22/25 1508 Customer Services Coordinator: [facility] DIATHERMY EQUIPMENT REPAIRER IMG US PROCEDURES Edited Resu lt - Final * RI REMOVAL IMPACTED CERUMEN IRRIGATION/LVG UNILAT (12/08/2024 2:34 PM EDT) Jacqui Parisi RN - 12/08/2024 2:34 PM EDT Jacqui Crespo RN 12/08/2024 2:36 PM Ear Cerumen Removal Date/Time: 12/08/2024 2:34 PM Performed by: Jacqui Crespo RN Authorized by: Shelly [place] acosta Consent: Consent obtained: Verbal Consent given by: Patient Risks, benefits, and alternatives were discussed: yes Risks discussed: Dizziness, incomplete removal and pain Alternatives discussed: No treatment [place] protocol: Patient identity confirmed: Verbally with patient Procedure details: Location: L ear Procedure type: irrigation Procedure outcomes: cerumen removed Post-procedure details: Inspection: Ear canal clear, no bleeding and TM intact Hearing quality: Improved Procedure completion: Tolerated Result [facility] DIATHERMY EQUIPMENT REPAIRER IN CLINIC/BEDSIDE ORDERABLES Final Result * (ABNORMAL) Hemoglobin A1c (12/08/2024 11:46 AM EDT) Hemoglobin A1c 6.1(H) <6.0 % [facility] Comment:Hemoglobin A1C Refer ence Range Adults: 4.8 - 6.0 % Non diabetic: < 6.0 % Goal: < 7.0 %Additional Action Suggested: > 8.0 %Note: Hemoglobin A1c results are invalid for patients with abnormal amounts of HbF. Blood transfusions may impact the HbA1c concentration in the patient sample. Estimated Average Glucose 128 mg/dL [facility] Comment:eAG = Estimated ave rage glucose which is %A1C expressed asaverage glucose, using the formula of the H2A-SneuaxvHxwakew Glucose study (ADAG), Diabetes Care, Vol.31,#8,2007 Blood Venous blood specimen / Unknown 12/08/2024 11:46 AM EDT 12/08/2024 1:59 PM EDT [facility] LAB BLOOD ORDERABLES Final Re sult Performing Organization Address [facility] Co de Phone Number [facility] [address] [place] [address] [phone] * Lipid Panel, Standard (12/08/2024 11:46 AM EDT) Triglycerides 89 <150 mg/dL [facility] Comment:Desirable Triglyceri de: less than 150 mg/dLBorderline High Triglyceride 150-199 mg/dLHigh Triglyceride: 200-499 mg/dLVery High Triglyceride: greater than or equal to 5OO mg/dL Cholesterol 132 <200 mg/dL [facility] Comment:Desirable Cholestero l: less than 200 mg/dLBorderline High Cholesterol: 200-239 mg/dLHigh Cholesterol: greater than 239 mg/dL LDL Cholesterol Calculated 72 <100 mg/dL [facility] Comment:Desirable LDL: less than 100 mg/dLNear Optimal/Above Optimal LDL: 110- 129 mg/dLBorderline High LDL: 130-159 mg/dLHigh LDL: 160-189 mg/dLVery High LDL: greater than or equal to 190 mg/dL HDL Cholesterol 43 >40 mg/dL [facility] Comment:Desirable HDL: great er than 40 mg/dL Note: This HDL assay may give artificially low results in patients with liver disease. Blood Venous blood specimen / Unknown 12/08/2024 11:46 AM EDT 12/08/2024 1:59 PM EDT [facility] LAB BLOOD ORDERABLES Final Re sult Performing Organization Address City/[facility]/ZIP Co de Phone Number [facility] [address] [place] [address] [phone] * (ABNORMAL) Comprehensive Metabolic Panel (12/08/2024 11:46 AM EDT) Sodium 139 135 - 145 mmol/L [facility] Potassium 4.2 3.3 - 5.1 mmol/L [facility] Chloride 105 96 - 108 mmol/L [facility] Carbon Dioxide 28 22 - 29 mmol/L [facility] Anion Gap 10(L) 12 - 20 [facility] Urea Nitrogen (BUN) 14 9 - 16 mg/dL [facility] Creatinine, Serum 1.08 0.5 - 1.4 mg/dL [facility] Estimated Glomerular Filt Rate >60 [facility] Comment:Chronic Kidney Disea se: Estimated GFR < 60 mL/min/1.40d8Hmwoly Kidney Disease: Estimated GFR < 15 mL/min/1.73m2 Glucose 122(H) 60 - 115 mg/dL [facility] Calcium 8.9 8.4 - 10.2 mg/dL [facility] Bilirubin, Total 0.8 0.0 - 1.0 mg/dL [facility] Aspartate Amino Transferase 31 5 - 37 U/L [facility] Alanine Aminotransferase 30 0 - 40 U/L [facility] Total Protein 6.9 6.5 - 8.0 g/dL [facility] Albumin Level 4.3 3.5 - 5.0 g/dL [facility] Alkaline Phosphatase 83 39 - 117 U/L [facility] Blood Venous blood specimen / Unknown 12/08/2024 11:46 AM EDT 12/08/2024 1:59 PM EDT [facility] LAB BLOOD ORDERABLES Final Re sult [facility] [address] [place] [address] [phone] * Referral to Neurology (11/07/2024) [facility] OUTPATIENT REFERRAL ORDERABLE S Final Result * MR Brain w/o Contrast (10/29/2024 9:34 AM EDT) Anatomical Region Laterality Modality Brain Magnetic Resonan ce 10/29/2024 9:34 AM EDT Narrative 10/29/2024 11:25 AM EDT [place] [address] Magnetic Resonance Report Signed Patient: Telly Florez MR#: [id number] 87 : 1950 Acct:[id number] Age/Sex: 74 / M ADM Date: 10/29/24 Loc: HO.MRI Attending Dr: Shelly GARCIA Ordering Physician: Shelly Edwards Date of Service: 10/29/24 Procedure(s): MR head/brain wo con Accession Number(s): [id number] cc: Shelly Edwards EXAMINATION: MR BRAIN WITHOUT CONTRAST CLINICAL INFORMATION: Dementia. COMPARISON: March 30, 2022. TECHNIQUE: MRI of the brain was obtained using routine sequences without contrast. FINDINGS: No restricted diffusion. No acute intracranial hemorrhage, mass effect, midline shift, hydrocephalus or herniation. Edouard-white matter differentiation is normal. Old lacunar infarct, body corpus callosum with the wallerian degeneration. Prominence of the extra-axial CSF spaces cerebral sulci and ventricles more pronounced in the frontoparietal and temporal poles. Old lacunar infarcts in the cerebellum and basal ganglia. Flow-void signal within the main cerebral vessels is normal. Sellar/suprasellar region demonstrated no signal abnormality or masses. Craniocervical junction demonstrates normal position of the cerebellar tonsils. Mucosal thickening, paranasal sinuses. 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 Atrophy, bifrontal temporal parietal poles. Electronically signed by: Humberto De Jesus MD 10/29/2024 11:22 AM EDT Dictated By: Humberto Stover MD Signed By: <Electronically signed by Humberto Mejia MD in OV> 10/29/24 1122 DD/ 0934 TD/TT: 10/29/24 1056 Customer Services Coordinator: Procedure Note Donotuseinterpreter, Image - 10/29/[address] [address] Magnetic Resonance Report Signed Patient: Telly Florez RMR#: [id number] [birth year] : 9Acct:[id number] Age/Sex: 74 / MADM Date: 10/29/24 Loc: HO.MRI Attending Dr: Shelly Grace FNP [facility]ing Physician[facility] [place] Date of Service: 10/29/24 Procedure(s): MR head/brain wo con Accession Number(s): [id number] cc: [facility] EXAMINATION: MR BRAIN WITHOUT CONTRAST CLINICAL INFORMATION: Dementia. COMPARISON: March 30, 2022. TECHNIQUE: MRI of the brain was obtained using routine sequences without contrast. FINDINGS: No restricted diffusion. No acute intracranial hemorrhage, mass effect, midline shift, hydrocephalus or herniation. Edouard-white matter differentiation is normal. Old lacunar infarct, body corpus callosum with the wallerian degeneration. Prominence of the extra-axial CSF spaces cerebral sulci and ventricles more pronounced in the frontoparietal and temporal poles. Old lacunar infarcts in the cerebellum and basal ganglia. Flow-void signal within the main cerebral vessels is normal. Sellar/suprasellar region demonstrated no signal abnormality or masses. Craniocervical junction demonstrates normal position of the cerebellar tonsils. Mucosal thickening, paranasal sinuses. 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 Atrophy, bifrontal temporal parietal poles. Electronically signed by: Humberto De Jesus MD 10/29/2024 11:22 AM EDT Dictated By: Humberto Stover MD Signed By: <Electronically signed by Humberto Mejia MDin OV> 10/29/24 1122 DD/ 0934 TD/TT: 10/29/24 1056 Customer Services Coordinator: [facility] IMG MRI PROCEDURES Final Resu lt * HEPATITIS C AB W/REFL TO HCV RNA, QN, PCR (08/31/2021 10:56 AM EDT) HEPATITIS C ANTIBODY NON-REACT [facility] NON-REACT [facility] INDEX 0.01 <1.00 [facility] Comment: HCV antibody was non-reactive. There is no laboratory evidence of HCV infection. In most cases, no further action is required. However, if recent HCV exposure is suspected, a test for HCV RNA (test code 88019) is suggested. For additional information please refer to [email or web address]/faq/JCJ65l8 (This link is being provided for informational/ educational purposes only.) 08/31/2021 10:5 6 AM EDT [facility] DIATHERMY EQUIPMENT REPAIRER HISTORICAL/NON ORDERABLE LABS Final Result [facility] [address] from Last 3 Months or Most Recently Relevant to Health Maintenance Insurance [facility] [place] Care Teams Grinder Set Up Operator Internal Relationship Specialty Start Date End Date Shelly Edwards FNP [address] [place] [address] PCP - General Family Medicine 10/14/21
--- OUTSIDE RECORDS SUMMARY | 2025-01-22 15:51 | XMS_ITS | Encounter Summary ---
Author Organization [employer] Address [address] [facility] 7t [place] [address] Care Team Providers Care Insurance And Benefits Clerk Name Role Phone Grace [facility] Primary Care Provider [phone] Reason for Visit * Reason Comments Med Refill Encounter Details Date Type Department Care Team ([facility] st Contact Info) Description 04/07/2023 Refill [facility] MEDICINE [address] [place], [place] [phone] Name, MD Sterling [address] [place] [address] Social History Tobacco Use Types Packs/Day Years [...] the past 12 months, has t he [employer],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 threatened to shut [...] Description 02/02/2025 1:00 PM EDT Office Visit [facility] ADULT DENTAL [address] [place] [address] [address] DDS [address] [place] [address] 03/06/2025 2:30 PM EST Office Visit [facility] MEDICINE [address] [place] [address] Shelly Edwards FNP [address] [place] [address] documented as of this encounter Goals Goal [...] documented as of this encounter Care Teams Insurance And Benefits Clerk Relationship Specialty Start Date End Date Shelly Edwards FNP [address] [place] [address] PCP - General Family Medicine 10/14/21 documented as of this encounter
--- OUTSIDE RECORDS SUMMARY | 2025-01-22 15:51 | XMS_ITS | Clinical Summary ---
Author Organization [facility] Address [address] [address] Phone Care Team Providers Care Software Testing Specialist Name Role Phone Shelly Edwards [facility] Primary Care Provider Allergies No known active allergies Medications traMADoL (ULTRAM) 50 mg tablet Take 50 mg by mouth every 6 (six) hours as needed. 4 Active rosuvastatin (CRESTOR) 40 MG tablet Take 40 mg by mouth nightly at bedtime. at bedtime. 4 Active olmesartan (BENICAR) 5 mg tablet Take 5 mg by mouth daily. 4 Active ONETOUCH DELICA PLUS LANCET 33 gauge Misc Inject 1 each into the skin every morning. 4 Active chlorthalidone (HYGROTON) 25 MG tablet Take 25 mg by mouth daily. 4 Active ONETOUCH VERIO Strp strips 1 each by Percutaneous route every morning. 4 Active amLODIPine (NORVASC) 10 MG tablet Take 10 mg by mouth daily. 4 Active terazosin (HYTRIN) 10 MG capsule Take 10 mg by mouth nightly at bedtime. 4 Active aspirin 81 MG EC tablet Take 81 mg by mouth every morning. 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 Will repeat ultrasound by 01/10/2025 which is 1 year from the initial ultrasound for monitoring of nodular growth. I explained to the patient that if any of the nodules grow by 30% or more will have to repeat the biopsy. If the nodules are small and stable in size then we can repeat the ultrasound 2 years later by 01/10/2027. The patient will follow by January 2025 with me after getting the ultrasound done. Assessment & Plan (01/02/2024 2:58 PM EDT): This is a patient that was found to have incidental thyroid nodules on CT imaging. Subsequent ultrasound of the thyroid gland shows bilateral multinodular goiter. Unclear if this is toxic or not since with I do not have TSH levels. Will request TSH with free T4 level and TPO antibodies for evaluation of Leif's thyroiditis because Leif's thyroiditis has been associated with papillary thyroid carcinoma. Will also refer the patient for ultrasound-guided fine-needle aspiration of the right lower pole nodule measuring 2.3 x 1.8 x 1.8 cm in the left lower pole nodule measuring 2.1 x 2.3 x 1.7 cm. The patient was informed that the radiology department will call him and schedule biopsy. I will have him follow-up in 3 months time to review cytology report and for follow-up management based on cytology report. Encounters Date Type Department Care Team Description 01/16/2025 2:48 PM EDT - 01/16/2025 11:59 PM EDT Hospital Encounter [address] [address] Reno Daniels DO Discharge Disposition: Home or Self Care from Last 3 Months Family History Medical History Relation Comments Diabetes Father Cancer Mother Thyroid cancer Mother Thyroid disease Sister 1 Thyroid disease Sister 2 Thyroid disease Sister 3 Thyroid disease Sister 4 Relation Status Comments Father Mother Sister 1 Sister 2 Alive Sister 3 Alive Sister 4 Alive Social History Tobacco Use Types Packs/Day Years Used Date Smoking Tobacco: Former Cigarettes Q uit: 01/02/1964 Smokeless Tobacco: Never Tobacco Cessation:Counseling Given: Not [...] on file Sexual Orientation Not on file Last Filed Vital Signs Vital Sign Reading Time Taken Comments Blood Pressure 148/84 04/07/2024 2:24 PM EST Pulse 70 04/07/2024 2:24 PM EST Temperature - - Respiratory Rate 18 02/13/2024 9:00 AM EDT Oxygen Saturation 99% 04/07/2024 2:24 PM EST Inhaled Oxygen Concentration - - Weight 84.6 kg (186 lb 6.4 oz) 04/07/2024 2:24 P M EST Height 176.5 cm (5' 9.49 ) 04/07/2024 2:24 PM ES T Body Mass Index 27.14 04/07/2024 2:24 PM EST Plan of Treatment Upcoming Encounters Date Type Department Care Team (Late st Contact Info) Description 02/05/2025 2:40 PM EDT Office Visit [facility] [address] [place] [address] [place] [address] Reno Daniels DO [address] [place] [address] Health Maintenance Due Date Last Done Comments CREATININE LEVEL 1950 POTASSIUM LEVEL 1950 DEPRESSION SCREENING 1961 HEPATITIS C SCREENING 1967 COLOGUARD 1994 COLONOSCOPY 1994 COLORECTAL CANCER SCREENING 1994 FIT TEST 1994 FOBT 1994 SIGMOIDOSCOPY 1994 VIRTUAL COLONOSCOPY 1994 ZOSTER VACCINES (1 of 2) 1999 PNEUMOCOCCAL VACCINES (50+ years) (2 of 2 - PCV) 08/31/2022 08/31/2021 RSV VACCINE (1 - 1-dose 75+ series) 2024 INFLUENZA VACCINE (#1) 2024 COVID-19 VACCINE (1 - 2023-2 5 season) 2024 SMOKING Hx and SMOKELESS TOBACCO SCREENING 04/07/2025 04/07/2024 LIPID PANEL 12/08/2029 12/08/2024, 10/24/2023 Adult Td,Tdap Booster 10/15/2031 10/14/2021 HEPATITIS A VACCINES Aged Out No long er eligible based on patient's age to complete this topic HIB VACCINES Aged Out No longer eligi ble based on patient's age to complete this topic MENINGOCOCCAL VACCINES (ACWY) Aged Out No longer eligible based on patient's age to complete this topic MENINGOCOCCAL VACCINES (B) Aged Out N o longer eligible based on patient's age to complete this topic Medical Devices Not on file Procedures Procedure Name Priority Date/Time Associated Diagnosis Comments US THYROID GLAND Routine 01/16/2025 3:22 PM EDT Nontoxic multinodular goiter from Last 3 Months Results * US Thyroid Gland (01/16/2025 3:22 [...] 6 pts), 5 (>=7pts). Reno Daniels DO [facility] THYROID Final Result from Last 3 Months Insurance [facility] AARP MEDICARE REPLACEMENT [place] A & B Member Subscriber Plan / Payer (Ef fective 2014-Present) Name:Telly Matthews Member ID:[id number] Relation to Subscriber:Self Name:Telly Matthews Subscriber ID:[id number] Payer ID:[id number] Group ID:Not on file Type:Medicare Address: [facility] [employer] [facility] [address] [place] [phone] [place] [address] MEDICARE REPLACEMENT [place] MEDIC[place] PART A & B [facility] MEDICARE REPLACEMENT [facility] MEDICARE PART A & [place] [place] [address] [place] [address] [facility] MEDICARE PART A & B [place] MEDICARE PART A & [place] [address] [facility] Care Teams Software Testing Specialist Relationship Specialty Start Date End Date Shelly Edwards FNP [address] [place] [address] PCP - General Nurse Practitioner 01/16/25 Additional Source Comments The information contained in this document represents components of the legal health record. It is not the complete legal health record.[facility]
--- OUTSIDE RECORDS SUMMARY | 2025-01-22 15:51 | XMS_ITS | Encounter Summary ---
Author Organization [facility] Address [address] [facility] [address] [place] [address] Phone Care Team Providers Care Cuff Matcher Name Role Phone Roopa Mcdonnell MD Primary Care Provider [phone] Shelly Edwards Primary Care Provider [phone] Encounter Details Date Type Department Care Team (Late st Contact Info) Description 02/13/2024 Procedure Pass [facility] [address] [place] [address] Social History Tobacco Use Types Packs/Day Years [...] PM EDT Office Visit [facility] [address] [place] [address] Reno Daniels DO [address] [place] [address] [email or web address] documented as of this encounter Visit Diagnoses Not on filedocumented in this encounter Care Teams Cuff Matcher Relationship Specialty Start Date End Date Roopa Mcdonnell MD [address] [place] [address] PCP - General Internal Medicine 09/26/23 01/15/25 [place] [address] [place] [address] PCP - General Nurse Practitioner 01/16/25 documented as of this encounter Additional Source Comments The information contained in this document represents components of the legal health record. It is not the complete legal health record.[facility]
--- OUTSIDE RECORDS SUMMARY | 2025-01-22 15:51 | XMS_ITS | Encounter Summary ---
Author Organization [employer] Address [address] [facility] 7t [place] [address] Care Team Providers Care Operations Supervisor Name Role Phone [facility] Primary Care Provider [phone] Encounter Details Date Type Department Care Team (Latest Contact Info) Description 12/08/2024 Results Follow-Up [facility] [address] [place], [place] [phone] [facility] [address] [place] [address] Comprehensive Metabolic Panel, Hemoglobin A1c, Lipid Panel, Standard Social History Tobacco Use Types Packs/Day Years [...] Description 02/02/2025 1:00 PM EDT Office Visit [facility] CH[facility] ADULT DENTAL [address] [place] [address] [address] DDS [address] [place] [address] 03/06/2025 2:30 PM EST Office Visit [facility] MEDICINE [address] [place] [address] GraceShelly acosta FNP [address] [place] [address] documented as of this encounter Goals Goal [...] documented as of this encounter Care Teams Operations Supervisor Relationship Specialty Start Date End Date [place] JOSE Bravo [address] [place] [address] PCP - General Family Medicine 10/14/21 documented as of this encounter
--- OUTSIDE RECORDS SUMMARY | 2025-01-22 15:51 | XMS_ITS | Encounter Summary ---
Author Organization [employer] Address [address] [facility] 7t [place] [address] Care Team Providers Care Marketing Account Executive Name Role Phone [facility] Primary Care Provider [phone] Reason for Visit * Reason Comments Med Refill Encounter Details Date Type Department Care Team ([facility] st Contact Info) Description 06/10/2024 Refill [facility] MEDICINE [address] [place], [place] [phone] [facility] [address] [place] [address] Primary hypertension Social History Tobacco Use Types [...] Description 02/02/2025 1:00 PM EDT Office Visit [facility] CHC ADULT DENTAL [address] [place] [address] [address] DDS [address] [place] [address] 03/06/2025 2:30 PM EST Office Visit [facility] MEDICINE [address] [place] [address] Shelly Edwards FNP [address] [place] [address] documented as of this encounter Goals Goal [...] documented as of this encounter Care Teams Marketing Account Executive Relationship Specialty Start Date End Date Shelly Edwards FNP [address] [place] [address] PCP - General Family Medicine 10/14/21 documented as of this encounter
--- OUTSIDE RECORDS SUMMARY | 2025-01-22 15:52 | XMS_ITS | Encounter Summary ---
Author Organization [employer] Address [address] [place] [address] [address] [address] Care Team Providers Care Fund Controller Name Role Phone [facility] Primary Care Provider [phone] Encounter Details Date Type Department Care Team (Late Contact Info) Description 03/29/2022 Orders Only [address] [address] Celia Padilla MD [address] [place] [address] (Primary Dx) Social History [...] Encounters Date Type Department Care Team (Late Contact Info) Description 02/02/2025 1:00 PM EDT Office Visit [facility] CHC ADULT DENTAL [address] [place] [address] [address], DDS [address] [place] [address] 03/06/2025 2:30 PM EST Office Visit [facility] MEDICINE [address] [place] [address] [place] [address] [address] Scheduled Orders Name Type Priority Associated Diagnoses [...] Specific Antigen 2.12 <0.05 - 4.0 ng/mL [facility] Comment:PSA methodology: Starla Velazquez i ChemiluminescentMicroparticle Immunoassay (CMIA) 06/22/2022 1:10 PM EST 06/22/2022 1:10 PM EST us [facility] External Provider LAB BLO OD ORDERABLES Final Result Performing Organization Address City/State/[facility] Co de Phone Number [facility] [address] [place] [phone] * MR Brain w/o Contrast (03/30/2022 9:25 AM EST) Anatomical Region Laterality Modality Brain Magnetic Resonan ce 03/30/2022 9:25 AM EST Narrative 2022 11:46 AM EST [address] [address] Magnetic Resonance Report Signed Patient: Telly Florez MR#: [id number] : 1950 Acct:[id number] Age/Sex: 71 / M ADM Date: 03/30/22 Loc: HO.MRI Attending Dr: Milagros Ho MD Ordering Physician: Milagros Ho MD Date of Service: 03/30/22 Procedure(s): MR head/brain wo con Accession Number(s): [id number] cc: Milagros Ho MD EXAMINATION: MR BRAIN [...] in OV> 03/31/22 1143 DD/ 4 TD/TT: Magneto Specialist: Procedure Note Donotuseinterpreter, Image - 06/01/2022 [place] [address] Magnetic Resonance Report Signed Patient: Jim Florez#: [id number] : 9Acct:[id number] Age/Sex: 71 / MADM Date: 03/30/22 Loc: HO.MRI Attending Dr: Milagros Ho MD Ordering Physician: Milagros Ho MD Date of Service: 03/30/22 Procedure(s): MR head/brain wo con Accession Number(s): [id number] cc: Milagros Ho MD EXAMINATION: MR BRAIN [...] Aamir Martin in OV> 03/31/22 1143 DD/ TD/TT: Magneto Specialist: [employer] External Provider IMG MRI PROCEDURES Final Result documented in this encounter Visit Diagnoses Diagnosis Abnormal brain CT- Primary Nonspecific (abnormal) findings on radiological and other examination of skull and head documented in this encounter Care Teams Fund Controller Relationship Specialty Start Date End Date GraceShelly acosta FNP [address] [place] [address] PCP - General Family Medicine 10/14/21 documented as of this encounter
== END 2025-01-22 14:16 | disposition home or self-care (01) ==
LOC: HO.US 14:15
PROVIDERS: PCP Registered Nurse; Visit Provider Registered Nurse
DX: N28.9 Disorder of kidney and ureter, unspecified (principal)
CPT/HCPCS: 76775

== ENCOUNTER → 2025-01-22 14:54 | Outpatient (BNV) | payer MEDICARE, MEDICAID, SELFPAY | PROVIDERS: PCP Registered Nurse; Visit Provider Radiology Diagnostic Radiology | DX: N28.9 Disorder of kidney and ureter, unspecified (principal) | CPT/HCPCS: 76775 ==

== ENCOUNTER 2025-03-04 14:01 | Outpatient (AMB) | payer MEDICARE, MEDICAID, SELFPAY ==
--- NOTE | 2025-03-04 14:15 | MHC.OFFVIS ---
Intake Visit Reasons: Renal Mass Intake Note: Patient is present for Renal Mass Urology Med: Terazosin Antibiotic Allergy: None Blood Thinner: None Renal US- 01/22/2025 Last PSA- 06/20/23 -3.02 Operator Maintainer Required: No Fish Flipper: Fish Flipper Present Accompanied by: Spouse Allergies No Known Allergies (No Known Allergies*) Allergy (Verified 03/04/25 14:19) HPI Comments Details: Telly is a very pleasant male. He is seen in the office for following urologic conditions - cystitis recurrent - urinary retention with pyelonephritis - BPH Nepali translation provided in office by qualified medical observer Recent renal ultrasound with small 2 cm lesion question of complex cyst on right kidney Follow-up six-month with contrast imaging Lower urinary tract symptoms Longstanding Current therapy of medications Prior therapy tamsulosin which no longer works for him, finasteride but has small prostate, terazosin 10 mg 10/11 admission to hospital with pyelonephritis in CT scan showing thickening of bladder wall Cystoscopy 02/10 tight prostate minimal lateral impingement PSA 07/13 2.2, 06/16 3 Cystitis Recurrence of symptoms Prior antibiotic resistant species 11/10 ESBL E coli 06/14 Streptococcus and Enterococcus Microgen 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 topical therapy [facility] Multiple thyroid nodules Mixed hyperlipidemia Lacunar infarction Constipation Prediabetes Hx-TIA (transient ischemic attack) Nicotine dependence, cigarettes, uncomplicated BPH (benign prostatic hyperplasia) GERD (gastroesophageal reflux disease) HTN (hypertension) Surgical History History of circumcision Hx of colonoscopy Social History Household Members: Children Housing: House Do you presently have visiting nurse or other home services: No Alcohol intake: former Patient Tobacco Use Status: Former Tobacco user Tobacco use type: Cigarette Years Smoked: (onset 17yo, 1ppd x 54yrs, 50PYH) service: No Current occupational status: disabled Review of Systems Const Denies chills and Denies fever(s) Card Reports no additional complaints and Denies syncope Resp Denies cough GI Denies abdominal pain and Denies heartburn Reports as per HPI and Denies change in libido Neuro Denies syncope Psych Denies change in libido Endo Denies change in libido Physical Exam Const General: cooperative, healthy appearing, comfortable and no acute distress Orientation/consciousness: patient oriented x3 HEENT Face and sinus: Yes normal facial exam Mouth: moist mucous membranes Neck Neck: Yes normal visual inspection, Yes full ROM and Yes trachea midline Chest Chest palpation & inspection: normal inspection of the chest Resp Effort & Inspection: normal respiratory effort, able to speak in complete sentences and no respiratory distress GI Inspection: Yes normal to inspection Back/Spine/Pelvis Cervical Spine: normal cervical lordosis Thoracic/Lumbar Spine: thoracic and lumbar spine normal to inspection Skin General skin exam: no rashes or lesions noted Neuro General: patient oriented x3, gait normal, tone normal and moves all extremities Extrem General: Yes normal to inspection and Yes capillary refill normal Assessment & Plan Assessment & Plan (1) Right kidney mass: Comment: Masslike appearance of the partially visualized right mid kidney. Recommend CT renal mass protocol for further evaluation. - noted on 08/2024 LDCT Code(s): N28.89 - Other specified disorders of kidney and ureter Category: Medical Plan Contrast enhanced imaging protocol Patient Instructions: This note is constructed using voice recognition software. While every effort has been made to ensure accuracy roll contour grinder errors may have been included. Imaging studies, laboratory and physical exam results were discussed and reviewed in detail. No major barriers to patient understanding were identified. An opportunity to ask questions regarding the treatment plan was provided. All questions were answered. The patient expressed understanding and agreement with the above treatment plan. The patient is aware they should contact our office by phone for worsening of their current condition or the appearance of new urologic symptoms. Compliance is encouraged with any medications and followup testing that is ordered. It is a privilege to participate in the urologic care of your patient. If you have any questions or concerns regarding treatment for the above conditions, or other urologic issues, please do not hesitate to contact me. The office telephone contact is [phone]. Sincerely, Dr Karel Rios MD, [facility] - Urology Compassionate Specialist Care for the Genitourinary System Coding Level of Care Code Est Pt Level 3 (05532) Complex EM visit Add On G2211 Diagnoses Right kidney mass N28.89
--- OUTSIDE RECORDS SUMMARY | 2025-03-04 17:19 | XMS_ITS | Encounter Summary ---
Author Organization [employer] Address [address] [place] [address] [address], [place] [address] Care Team Providers Care Environmental Health Officer Name Role Phone [facility] Primary Care Provider [phone] Encounter Details Date Type Department Care Team (Late Contact Info) Description 03/29/2022 Orders Only [address] [address] Celia Padilla MD [address] [place] [address] (Primary Dx) Social History [...] Department Care Team (Late Contact Info) Description 03/05/2025 9:00 AM EST Office Visit [facility] ADULT DENTAL [address] [place] [address] [address] [place], DDS [address] [place] [address] 03/06/2025 2:30 PM EST Office Visit [facility] MEDICINE [address] [place] [address] [address] Scheduled Orders Name Type Priority Associated Diagnoses [...] Specific Antigen 2.12 <0.05 - 4.0 ng/mL [facility] Comment:PSA methodology: Starla Velazquez i ChemiluminescentMicroparticle Immunoassay (CMIA) 06/22/2022 1:10 PM EST 06/22/2022 1:10 PM EST us [facility] External Provider LAB BLO OD ORDERABLES Final Result Performing Organization Address City/State/[facility] Co de Phone Number [facility] [address] [place] [phone] * MR Brain w/o Contrast (03/30/2022 9:25 AM EST) Anatomical Region Laterality Modality Brain Magnetic Resonan ce 03/30/2022 9:25 AM EST Narrative 2022 11:46 AM EST [address] [address] Magnetic Resonance Report Signed Patient: Telly Florez MR#: [id number] : 1950 Acct:[id number] Age/Sex: 71 / M ADM Date: 03/30/22 Loc: HO.MRI Attending Dr: Milagros Ho MD Ordering Physician: Milagros Ho MD Date of Service: 03/30/22 Procedure(s): MR head/brain wo con Accession Number(s): [id number] cc: Milagros Ho MD EXAMINATION: MR BRAIN [...] in OV> 03/31/22 1143 DD/ 4 TD/TT: Meat Cutter Apprentice: Procedure Note Donotuseinterpreter, Image - 06/01/2022 [place] [address] Magnetic Resonance Report Signed Patient: Jim Florez#: [id number] : 9Acct:[id number] Age/Sex: 71 / MADM Date: 03/30/22 Loc: HO.MRI Attending Dr: Milagros Ho MD Ordering Physician: Milagros Ho MD Date of Service: 03/30/22 Procedure(s): MR head/brain wo con Accession Number(s): [id number] cc: Milagros Ho MD EXAMINATION: MR BRAIN [...] Martin in OV> 03/31/22 1143 DD/ TD/TT: Meat Cutter Apprentice: [facility] External Provider IMG MRI PROCEDURES Final Result documented in this encounter Visit Diagnoses Diagnosis Abnormal brain CT- Primary Nonspecific (abnormal) findings on radiological and other examination of skull and head documented in this encounter Care Teams Environmental Health Officer Relationship Specialty Start Date End Date NutleyShelly acosta FNP [address] [place] [address] PCP - General Family Medicine 10/14/21 documented as of this encounter
--- OUTSIDE RECORDS SUMMARY | 2025-03-04 17:19 | XMS_ITS | Encounter Summary ---
Author Organization [employer] Address [address] [facility] [address] [place] [address] Care Team Providers Care Train Station Agent Name Role Phone Shelly Edwards Primary Care Provider [phone] Reason for Referral * Consultation (Urgent) - Closed Specialty Diagnoses / Procedures Referred By Abelardo moffett Referred To Contact Urology Diagnoses Renal mass, right Shelly Edwards FNP [address] [place] [address] Phone: tel: fax: [facility] [address] [place], [place] Phone: tel: fax: Referral ID Status Reason Start Date Expiration Date V isits Requested Visits Authorized [id number] Closed Specialty Services Required 01/26/2025 01/26/2026 1 1 * Imaging (STAT) - Authorized Specialty Diagnoses / Procedures Referred By Abelardo moffett Referred To Contact Radiology Diagnoses Renal mass, right Procedures CT Abdomen w/ and w/o Contrast Shelly Edwards FNP [address] [place] [address] Phone: tel: fax: [facility] [address] [place], [place] Phone: tel: fax: Referral ID Status Reason Start Date Expiration Date V isits Requested Visits Authorized [id number] Authorized 01/26/2025 01/26/2026 1 1 Reason for Visit * Reason Onset Date Comments Urology f/u appt 01/26/2025 Encounter Details Date Type Department Care Team (Late st Contact Info) Description 01/26/2025 Results Follow-Up [facility] [address] [place] [address] BloomingdaleShelly acosta [facility] [address] [place], [place] [id number] US Renal Complete Social History Tobacco Use Types Packs/Day Years [...] AM EDT documented as of this encounter Miscellaneous Notes * Telephone Encounter - Lana Quintana RN - 01/27/2025 9:31 AM EDT TC placed to [facility] urology [phone] in regards to below message. [facility] urology was able to see renal US results from 01/22/25. RN was informed the results will be reviewed by the provider who will advise the RN at [facility] urology when to schedule a f/u appointment with the urologist. RN was informed thepatient will be contacted with a f/u appointment once the provider reviews the US results. Sending to PCP as GINA. ----- Message from Shelly Edwards sent at 01/26/2025 5:49 PM EDT ----- Patient with renal mass on right kidney. CT scan ordered for further characterization and patient is aware. Patient is currently followed by urology (Dr. Rios at [facility]) for other urologic concerns. Would someone mind calling over to his office to help schedule an appointment for renal mass follow up? I'll place a new referral in case one is needed. Please fax over copy of renal ultrasound report and lethim know that CT scan is pending. Thank you!! ----- Message ----- From: David Ris Results In Sent: 01/22/2025 3:46 PM EDT To: JOSE Mendez documented in this encounter Plan of Treatment Upcoming Encounters Date Type Department Care Team (Late st Contact Info) Description 03/05/2025 9:00 AM EST Office Visit [facility] ADULT DENTAL [address] [place] [address] [address] [place], DDS [address] [place] [address] 03/06/2025 2:30 PM EST Office Visit [facility] [address] [place] [address] [facility] [address] [place] [address] Scheduled Orders Name Type Priority Associated Diagnoses Orde r Schedule CT Abdomen w/ and w/o Contrast Imaging STAT Renal mass, right Expected: 01/26/2025, Expires: 01/26/2026 Scheduled Referrals Name Type Priority Associated Diagnoses Orde r Schedule Referral to Urology Outpatient Referral Urgent Renal mass, right Expected: 01/26/2025 (Approximate), Expires: 01/26/2026 documented as of this encounter Goals Goal Patient Goal Type Associated Problems Recent Progress Patient-Stated? Author Blood Pressure < 150/90 Blood Pressure 122/82( 025 2:20 PM EDT) Jairon Lomax documented as of this encounter Visit Diagnoses Diagnosis Renal mass, right- Primary Unspecified disorder of kidney and ureter documented in this encounter Additional Health Concerns Assessment Noted Time PHQ-9 Depression Total Score: 0 12/02/19 25 3:08 PM EDT documented as of this encounter Care Teams Train Station Agent Relationship Specialty Start Date End Date Grace [facility] [address] [place] [address] PCP - General Family Medicine 10/14/21 documented as of this encounter
--- OUTSIDE RECORDS SUMMARY | 2025-03-04 17:19 | XMS_ITS | Encounter Summary ---
Author Organization [employer] Address [address] [facility] 7t [place] [address] Care Team Providers Care Binder Chainstitch Name Role Phone [facility] Primary Care Provider [phone] Reason for Visit * Reason Comments Med Refill Encounter Details Date Type Department Care Team ([facility] st Contact Info) Description 06/10/[address] [facility] [address] [place], [place] [phone] [facility] [address] [place] [address] Primary hypertension Social History Tobacco Use Types [...] Description 03/05/2025 9:00 AM EST Office Visit [facility] CHC ADULT DENTAL [address] [place] [address] [address] [place] DDS [address] [place] [address] 03/06/2025 2:30 PM EST Office Visit [facility] [address] [place] [address] Shelly Edwards FNP [address] [place] [address] documented as of this encounter Goals Goal Patient Goal Type Associated Problems Recent Progress Patient-Stated? Author Blood Pressure < 150/90 Blood Pressure 122/82( 025 2:20 PM EDT) Jairon Lomax documented as of this encounter Visit Diagnoses Diagnosis Primary hypertension Unspecified essential hypertension documented in this encounter Additional Health Concerns Assessment Noted Time PHQ-9 Depression Total Score: 0 10/24/19 9:21 AM EDT documented as of this encounter Care Teams Binder Chainstitch Relationship Specialty Start Date End Date Shelly Edwards FNP [address] [place] [address] PCP - General Family Medicine 10/14/21 documented as of this encounter
--- OUTSIDE RECORDS SUMMARY | 2025-03-04 17:19 | XMS_ITS | Clinical Summary ---
Author Organization [facility] Address [address] [address] Phone Care Team Providers Care Rfid Developer Name Role Phone Shelly Edwards [facility] Primary Care Provider Allergies No known [...] into the skin every morning. 4 Active ONETOUCH VERIO Strp strips 1 each by Percutaneous route every morning. 4 Active amLODIPine (NORVASC) 10 MG tablet Take 10 mg by mouth daily. 4 Active terazosin (HYTRIN) 10 MG capsule Take 10 mg by mouth nightly at bedtime. 4 Active aspirin 81 MG EC tablet Take 81 mg by mouth every morning. 4 Active donepeziL (ARICEPT) 10 MG tablet Take 10 mg by mouth nightly at bedtime. at bedtime. Active chlorthalidone (HYGROTON) 25 MG tablet Take 25 mg by mouth daily. 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 Furthermore the radiologist to read current report states that the nodules are TI-RADS 2. Previously nodules were classified as either TI-RADS 3 or TI-RADS 4. In any case both dominant nodules in the right and left lobe was previously biopsied found to be benign. The nodules are smaller in size and do not require repeat biopsy. At this point we will recommend repeat ultrasound by 01/16/2027. Ultrasound was ordered. The patient will return for follow-up in 2 years. Assessment & Plan (04/07/2024 2:46 PM EST): [...] Encounters Date Type Department Care Team Description 02/05/2025 2:40 PM EDT Office Visit [facility] [address] [place] [address] [place] [address] Reno Daniels DO Nontoxic multinodular goiter (Primary Dx) 01/16/2025 2:48 PM EDT - 01/16/2025 11:59 PM EDT Hospital Encounter [facility] - [address] [address] Reno Daniels DO Discharge Disposition: Home or [...] Sign Reading Time Taken Comments Blood Pressure 120/60 02/05/2025 3:04 PM EDT Pulse 67 02/05/2025 3:04 PM EDT Temperature - - Respiratory Rate 18 02/13/2024 9:00 AM EDT Oxygen Saturation 97% 02/05/2025 3:04 PM EDT Inhaled Oxygen Concentration - - Weight 80.7 kg (178 lb) 02/05/2025 3:04 PM EDT Height 176.5 cm (5' 9.49 ) 02/05/2025 3:04 PM ED T Body Mass Index 25.92 02/05/2025 3:04 PM EDT Plan of Treatment Health Maintenance Due Date Last Done Comments [...] VACCINE (#1) 2024 COVID-19 VACCINE (1 - 2024-2 6 season) 2024 SMOKING Hx and SMOKELESS TOBACCO SCREENING 04/07/2025 04/07/2024 LIPID PANEL 12/08/2029 12/08/2024, 10/24/2023 Adult Td,Tdap Booster 10/15/2031 10/14/2021 HEPATITIS A VACCINES Aged Out No long er eligible based on patient's age to complete this topic HIB VACCINES Aged Out No longer eligi ble based on patient's age to complete this topic IPV VACCINES Aged Out No longer eligi ble [...] nodules meeting criteria for imaging follow-upor sampling. Munirasmarylou FN, Doris DEL RIO, Errol EG, et al. ACR Thyroid Imaging, Reportingand Data System (TI-RADS): White Paper of the ACR TI-RADS Committee. J AmColl Radiol 2017;14:587-595. TI-RADS scale: 1 (0 pts), 2 (2 pts), 3 (3 pts), 4 (4 to 6 pts), 5 (>=7pts). Munirasmarylou STRONG, Doris DEL RIO, Errol BARNES, et al. ACR Thyroid Imaging, Reportingand Data System (TI-RADS): White Paper of the ACR TI-RADS Committee. J AmColl Radiol 2017;14:587-595. TI-RADS scale: 1 (0 pts), 2 (2 pts), 3 (3 pts), 4 (4 to 6 pts), 5 (>=7pts). Reno Daniels DO [facility] US THYROID Final Result from Last 3 Months Insurance [facility] MEDICARE PART A & B [facility] MEDICARE REPLACEMENT [place] MEDICARE PART A & [place] [address] [place] [address] MEDICARE RE[facility] [place] [address] [place] [address] MEDICARE REPLACEMENT [facility] MEDICARE PART A & B [facility] MEDICARE REPLACEMENT [facility] MEDICARE PART A & B UNITED H[employer] AARP MEDICARE RE[facility] A & B Care Teams Rfid Developer Relationship Specialty Start Date End Date Shelly Edwards FNP [address] [place] [address] PCP - General Nurse Practitioner 01/16/25 Additional Source Comments The information contained in this document represents components of the legal health record. It is not the complete legal health record.[facility]
--- OUTSIDE RECORDS SUMMARY | 2025-03-04 17:19 | XMS_ITS | Encounter Summary ---
Author Organization [facility] Address [address] [address] Phone Care Team Providers Care Interactive Media Designer Name Role Phone Roopa Mcdonnell MD Primary Care Provider Shelly Edwards Primary Care Provider [phone] Encounter Details Date Type Department Care Team (Late st Contact Info) Description 02/13/2024 Procedure Pass [facility] [address] [place] [address] Social History Tobacco Use Types Packs/Day Years [...] as of this encounter Plan of Treatment Not on file documented as of this encounter Visit Diagnoses Not on filedocumented in this encounter Care Teams Interactive Media Designer Relationship Specialty Start Date End Date Roopa Mcdonnell MD [address] [place] [address] PCP - General Internal Medicine 09/26/23 01/15/25 GraceShelly acosta FNP [address] [place] [address] PCP - General Nurse Practitioner 01/16/25 documented as of this encounter Additional Source Comments The information contained in this document represents components of the legal health record. It is not the complete legal health record.[facility]
--- OUTSIDE RECORDS SUMMARY | 2025-03-04 17:19 | XMS_ITS | Encounter Summary ---
Author Organization [employer] Address [address] [facility] [address] 7t [place] [address] Care Team Providers Care Architecture Manager Name Role Phone Grace [facility] Primary Care Provider [phone] Reason for Visit * Reason Comments Med Refill Encounter Details Date Type Department Care Team ([facility] st Contact Info) Description 04/07/2023 Refill [facility] MEDICINE [address] [place], [place] [phone] Name, MD [place] [address] [place] [address] Social History Tobacco Use Types Packs/Day Years [...] the past 12 months, has t he [employer],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 threatened to shut [...] Description 03/05/2025 9:00 AM EST Office Visit [facility] CHC ADULT DENTAL [address] [place] [address] K[address] DDS [address] [place] [address] 03/06/2025 2:30 PM EST Office Visit [facility] MEDICINE [address] [place] [address] Shelly Edwards FNP [address] [place] [address] documented as of this encounter Goals Goal Patient Goal Type Associated Problems Recent Progress Patient-Stated? Author Blood Pressure < 150/90 Blood Pressure 122/82( 025 2:20 PM EDT) No Jairon Daly documented as of this encounter Visit Diagnoses Not on filedocumented in this encounter Additional Health Concerns Assessment Noted Time PHQ-9 Depression Total Score: 0 11/24/19 23 3:52 PM EDT documented as of this encounter Care Teams Architecture Manager Relationship Specialty Start Date End Date Shelly Edwards FNP [address] [place] [address] PCP - General Family Medicine 10/14/21 documented as of this encounter
--- OUTSIDE RECORDS SUMMARY | 2025-03-04 17:19 | XMS_ITS | Encounter Summary ---
Author Organization [employer] Address [address] [facility] 7t [place] [address] Care Team Providers Care Compressor Battery Pellets Name Role Phone [facility] Primary Care Provider [phone] Reason for Visit * Reason Comments Pre-visit Planning SDOH unable to reach LVM Encounter Details Date Type Department Care Team ([facility] st Contact Info) Description 02/27/2025 Patient Outreach [facility] CH[facility] MED & PEDS [address] [place], [place] [phone] [facility] [address] [place] [address] Pre-visit Planning (SDOH unable to reach LVM ) Social History Tobacco Use Types Packs/Day Years [...] as of this encounter Progress Notes * Linda Irvin - 02/27/2025 11:47 AM EST RICARDO Jang placed outbound call to patient to complete pre-visit planning. No answer at this time. Patient name and were not confirmed. CC left voicemail requesting return call. Direct contactinformation provided. documented in this encounter Plan of Treatment Upcoming Encounters Date Type Department Care Team (Late st Contact Info) Description 03/05/2025 9:00 AM EST Office Visit [facility] CH[facility] ADULT DENTAL [address] [place] [address] K[address] [place] DDS [address] [place] [address] 03/06/2025 2:30 PM EST Office Visit [facility] [address] [place] [address] Shelly Edwards FNP [address] [place] [address] documented as of this encounter Goals Goal [...] documented as of this encounter Care Teams Compressor Battery Pellets Relationship Specialty Start Date End Date Shelly Edwards FNP [address] [place] [address] PCP - General Family Medicine 10/14/21 documented as of this encounter
--- OUTSIDE RECORDS SUMMARY | 2025-03-04 17:19 | XMS_ITS | Clinical Summary ---
Author Organization [employer] Address [address] [facility] [address] [place] [address] Care Team Providers Care Bin Cleaner Name Role Phone [facility] Primary Care Provider [phone] Allergies No known active allergies Medications polyethylene glycol, PEG, 3350 (MiraLax) 17 GM/SCOOP powderIndications :Constipation, unspecified constipation type Take 17 g by mouth in the morning. Dissolve in 8 oz of fluid 527 g 2 4 Active triamcinolone (Kenalog) 0.025 % creamIndications: Rash and nonspecific skin eruption Apply topically 2 times daily. 80 g 4 Active glucose blood (OneTouch Verio) test stripIndications: Prediabetes USE DIRECTED TO TEST BLOOD SUGAR EVERY DAY IN THE MORNING 100 strip 12 5 Active Lancets (OneTouch Delica Plus [id number]) miscIndications:P rediabetes USE DIRECTED TO TEST BLOOD SUGAR EVERY DAY 100 each 12 5 Active Aspirin Low Dose 81 MG EC tablet TAKE 1 TABLET BY MOUTH EVERY MORNING 90 tablet 3 5 Active terazosin (Hytrin) 10 MG capsule Take 10 mg by mouth at bedtime. 4 Active amLODIPine (Norvasc) 10 MG tablet TAKE 1 TABLET BY MOUTH EVERY MORNING 90 tablet 1 5 Active donepezil (Aricept) 10 MG tabletIndications :Moderate dementia without behavioral disturbance, psychotic disturbance, mood disturbance, or anxiety, unspecified dementia type (CMS/HCC) (HCC) Take 1 tablet (10 mg) by mouth at bedtime. 30 tablet 11 5 12/02/19 26 Active Accu-Chek Softclix Lancets lancetsIndication s:Type 2 diabetes mellitus without complication, without long-term current use of insulin (HCC) USE DIRECTED TO TEST BLOOD SUGAR EVERY DAY IN THE MORNING 100 each 3 5 Active glucose blood (Accu-Chek Guide Test) test stripIndications: Type 2 diabetes mellitus without complication, without long-term current use of insulin (HCC) USE DIRECTED TO TEST BLOOD SUGAR EVERY DAY IN THE MORNING 100 each 3 5 Active Blood Glucose Monitoring Suppl (Accu-Chek Guide Me) w/Device kitIndications:Ty pe 2 diabetes mellitus without complication, without long-term current use of insulin (HCC) USE DIRECTED TO TEST BLOOD SUGAR EVERY DAY IN THE MORNING 1 kit 5 Active olmesartan (BENIcar) 5 MG tabletIndications :Hypertension, unspecified type TAKE 1 TABLET BY MOUTH EVERYDAY AT NOON 90 tablet 1 5 Active rosuvastatin (Crestor) 40 MG tablet TAKE 1 TABLET BY MOUTH AT BEDTIME 90 tablet 1 5 Active ibuprofen 600 MG tablet Take 1 tablet (600 mg) by mouth every 6 (six) hours if needed for mild pain for up to 20 doses. 20 tablet 5 Active ibuprofen 600 MG tablet Take 1 tablet (600 mg) by mouth every 6 (six) hours if needed for mild pain for up to 20 doses. 20 tablet 5 Active amoxicillin (Amoxil) 500 MG capsule Take 1 capsule (500 mg) by mouth every 8 (eight) hours for 7 days. 21 capsule 5 02/17/20 25 Active Problems Problem Noted Date Diagnosed [...] as A1c is 6.1 Patient has underlying TIRE FABRICATOR vascular disease (probaly form HTN/hyperlipidemia) which they're [...] 8:47 PM EDT): Pt previously referred [place] [facility] due to not accepting new patients. [facility] does not accept patient insurance [facility] endo referral pending. Will task RN's to follow up. Provided patient with contact information as well Repeat TSH Assessment & Plan (12/04/2022 2:48 PM EDT): Call placed to [facility] [place]. They report previously mailed letter to patient that they are not taking new patients at this time. Spoke with referrals team. Patient insurance not accepted by [facility]. Referral placed to [facility]. Patient will call to make initial appointment. Lacunar infarction ([facility]/HCC) 12/04/2022 Assessment & Plan (04/25/2023 3:02 PM EST): Seen on CT scan on 02/2023, no change on the one on 04/18/23 No hx recurrent falls. Fu with PCP re assistance for some ADLs, info re [facility] [employer] program was given to his daughter to [...] patient in enrolling. 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 records unavailable PSA:06/2022 2.12 Vision: [facility]: Discuss at f/u HIV: 08/2021, neg [...] 08/31/2021 Overview (07/21/2022): - Last seen by [facility] urology, Dr. Rios 11/2021 at which time medications (finasteride and terazosin) were d/c. Patient was doing well and was advised to f/u PRN - Hx of recurrent cystitis with previous abx resistance - 09/2020 admitted to [facility] w/ pyelonephritis. CT at this time w/ [...] Encounters Date Type Department Care Team Description 02/27/2025 Patient Outreach [facility] [address] [place] [address] Shelly Edwards FNP Pre-visit Planning (SDOH unable to reach [facility] ) 02/19/2025 2:00 PM EDT Office Visit [facility] ADULT DENTAL [address] [place] [address] Km Braswell, DDS 02/09/2025 2:30 PM EDT Office Visit [facility] ADULT [facility]ENT[facility] [address] [place] [address] BraswellAramisKm, DDS 01/26/2025 1:00 PM EDT Office Visit [facility] ADULT DENTAL [address] [place] [address] Aramis Braswellipe, DDS 01/26/2025 Results Follow-Up [facility] [address] [facility], [place] [phone] Shelly Edwards FNP US Renal Complete 01/19/2025 1:00 PM EDT Office Visit [facility] ADULT DENTAL [address] [place] [address] Km Braswell, DDS 01/13/2025 Refill [facility] [address] [place] [address] Grace Shelly [facility] Hypertension, unspecified type 01/06/2025 2:00 PM EDT Office Visit [facility] ADULT DENTAL [address] [place] [address] BraswellKm coker, DDS 12/17/2024 2:30 PM EDT Office Visit [facility] ADULT [facility]ENT[facility] [address] [place] [address] BraswellAramis cokeripe, DDS 12/16/2024 Refill [facility] [address] [place] [address] Grace Shelly, [facility] Type 2 diabetes mellitus without complication, without long-term current use of insulin ([facility]) 12/09/2024 11:00 AM EDT Office Visit [facility] ADULT DENTAL [address] [place] [address] Km Braswell, DDS 12/08/2024 2:00 PM EDT Clinical Support [facility] [address] [place] [address] Jacqui Crespo RN Impacted cerumen of left ear 12/08/2024 Results Follow-Up [facility] [address] [place] [address] Grace Shelly, [facility] Comprehensive Metabolic Panel, Hemoglobin A1c, Lipid Panel, Standard 12/08/2024 Travel from Last 3 Months Immunizations Immunization Administration [...] Sign Reading Time Taken Comments Blood Pressure 122/82 02/19/2025 2:20 PM EDT Pulse 68 02/19/2025 2:20 PM EDT Temperature 36.3 C (97.3 F) [...] Description 03/05/2025 9:00 AM EST Office Visit [facility] [address] [place] [address] Km Braswell, JEANNES [address] [place] [address] 03/06/2025 2:30 PM EST Office Visit [facility] [address] [place] [address] Shelly Edwards, JOSE [address] [place] [address] Health Maintenance Due Date Last Done Comments [...] 06/2023, 02/09/2023, Additional history exists Tobacco Screening 02/19/2026 02/19/2025 Dental X-Ray: Full Mouth 04/11/2026 04/10/2023 DTaP/Tdap/Td [...] 025 2:20 PM EDT) No Jairon Daly Procedures Procedure Name Priority Date/Time Associated Diagnosis Comments 13 PREFABRICATED POST AND CORE IN ADDITION TO CROWN Routine 02/19/2025 2:00 PM EDT CASE PRESENTATION, DETAILED AND EXTENSIVE TREATMENT PLANNING Routine 02/19/2025 2:00 PM EDT 3 ENDODONTIC THERAPY, MOLAR TOOTH Routine 02/09/2025 2:30 PM EDT CASE PRESENTATION, DETAILED AND EXTENSIVE TREATMENT PLANNING Routine 02/09/2025 2:30 PM EDT 3 LIMITED ORAL EVALUATION - PROBLEM FOCUSED Routine 01/26/2025 1:00 PM EDT CASE PRESENTATION, DETAILED AND EXTENSIVE TREATMENT PLANNING Routine 01/26/2025 1:00 PM EDT US RENAL COMPLETE Routine 01/22/2025 2:5 4 PM EDT Kidney lesion, [place], right 13 ENDODONTIC THERAPY, PREMOLAR TOOTH Routine [...] TREATMENT PLANNING Routine 12/09/2024 11:00 AM EDT FL REMOVAL IMPACTED CERUMEN IRRIGATION/LVG UNILAT Routine 12/08/2024 2:34 PM EDT Impacted cerumen of left ear LIPID PANEL, STANDARD Routine 12/08/2024 11:46 AM EDT Primary hypertension [I10] HEMOGLOBIN A1C Routine 12/08/2024 11:46 AM EDT Primary hypertension [I10] COMPREHENSIVE METABOLIC PANEL Routine 12/08/2024 11:46 AM EDT Primary hypertension [I10] Full PROPHYLAXIS - ADULT Routine 07/07/2024 2:00 [...] Anatomical Region Laterality Modality Kidney Ultrasound 01/22/2025 2:5 4 PM EDT Narrative 01/22/2025 3:45 PM EDT [place] [address] Ultrasound Report Signed Patient: Telly Florez MR#: [id number] 87 : 1950 Acct:[id number] Age/Sex: 74 / M ADM Date: 01/22/25 Loc: HO. Attending Dr: Shelly GARCIA Ordering Physician: Shelly Edwards Date of Service: 01/22/25 Procedure(s): US renal BI Accession Number(s): [id number] cc: Shelly Edwards Reason for Exam: DISORDER [...] 01/22/25 1542 DD/ 1454 TD/TT: 01/22/[address] Bailiff: Procedure Note Donotuseinterpreter, Image - 01/22/2025 [place] [address] Ultrasound Report Signed Patient: Telly Florez RMR#: [id number] 87 : 9Acct:[id number] Age/Sex: 74 / MADM Date: 01/22/25 Loc: HO.US Attending Dr: Shelly GARCIA Ordering Physician: Shelly Edwards Date of Service: 01/22/25 Procedure(s): US renal BI Accession Number(s): [id number] cc: Shelly Edwards Reason for Exam: DISORDER [...] <Electronically signed by Humberto Mejia MDin OV> 01/22/25 1542 DD/ 1454 TD/TT: 01/22/[address] Bailiff: us [facility] IM US PROCEDURES Edited Resu lt - Final * FL REMOVAL IMPACTED CERUMEN IRRIGATION/LVG UNILAT (12/08/2024 2:34 PM EDT) Jacqui Parisi RN - 12/08/2024 2:34 PM EDT Jacqui Crespo RN 12/08/2024 2:36 PM Ear Cerumen Removal Date/Time: 12/08/2024 2:34 PM Performed by: Jacqui Crespo RN Authorized by: [facility] Consent: Consent obtained: Verbal Consent given by: Patient Risks, benefits, and alternatives were discussed: yes Risks discussed: Dizziness, incomplete removal and pain Alternatives discussed: No treatment [place] protocol: Patient identity confirmed: Verbally with patient Procedure details: Location: L ear Procedure type: irrigation Procedure outcomes: cerumen removed Post-procedure details: Inspection: Ear canal clear, no bleeding and TM intact Hearing quality: Improved Procedure completion: Tolerated [facility] EMT/PARAMEDIC IN CLINIC/BEDSIDE ORDERABLES Final Result * (ABNORMAL) Hemoglobin A1c (12/08/2024 11:46 AM EDT) Hemoglobin A1c 6.1(H) <6.0 % [facility] Comment:Hemoglobin A1C Refer ence Range Adults: 4.8 - 6.0 % Non diabetic: < 6.0 % Goal: < 7.0 %Additional Action Suggested: > 8.0 %Note: Hemoglobin A1c results are invalid for patients with abnormal amounts of HbF. Blood transfusions may impact the HbA1c concentration in the patient sample. Estimated Average Glucose 128 mg/dL [facility] Comment:eAG = Estimated ave rage glucose which is %A1C expressed asaverage glucose, using the formula of the [id number] Glucose study (ADAG), Diabetes Care, Vol.31,#8,Nov. 2007 Blood Venous blood specimen / Unknown 12/08/2024 11:46 AM EDT 12/08/2024 1:59 PM EDT [facility] EMT/PARAMEDIC LAB BLOOD ORDERABLES Final Re sult [facility] [address] [place] [address] [phone] * Lipid Panel, Standard (12/08/2024 11:46 AM EDT) Triglycerides 89 <150 mg/dL [facility] Comment:Desirable Triglyceri de: less than 150 mg/dLBorderline High Triglyceride 150-199 mg/dLHigh Triglyceride: 200-499 mg/dLVery High Triglyceride: greater than or equal to 5OO mg/dL Cholesterol 132 <200 mg/dL [facility] Comment:Desirable Cholestero l: less than 200 mg/dLBorderline High Cholesterol: 200-239 mg/dLHigh Cholesterol: greater than 239 mg/dL LDL Cholesterol Calculated 72 <100 mg/dL [facility] Comment:Desirable LDL: less than 100 mg/dLNear Optimal/Above Optimal LDL: 110- 129 mg/dLBorderline High LDL: 130-159 mg/dLHigh LDL: 160-189 mg/dLVery High LDL: greater than or equal to 190 mg/dL HDL Cholesterol 43 >40 mg/dL [facility] Comment:Desirable HDL: great er than 40 mg/dL Note: This HDL assay may give artificially low results in patients with liver disease. Blood Venous blood specimen / Unknown 12/08/2024 11:46 AM EDT 12/08/2024 1:59 PM EDT [facility] EMT/PARAMEDIC LAB BLOOD ORDERABLES Final Re sult [facility] [address] [place] [phone] * (ABNORMAL) Comprehensive Metabolic Panel (12/08/2024 11:46 AM EDT) Sodium 139 135 - 145 mmol/L [facility] Potassium 4.2 3.3 - 5.1 mmol/L [facility] Chloride 105 96 - 108 mmol/L [facility] Carbon Dioxide 28 22 - 29 mmol/L [facility] Anion Gap 10(L) 12 - 20 [facility] Urea Nitrogen (BUN) 14 9 - 16 mg/dL [facility] Creatinine, Serum 1.08 0.5 - 1.4 mg/dL [facility] Estimated Glomerular Filt Rate >60 [facility] Comment:Chronic Kidney Disea se: Estimated GFR < 60 mL/min/1.93b6Fwykim Kidney Disease: Estimated GFR < 15 mL/min/1.73m2 Glucose 122(H) 60 - 115 mg/dL [facility] Calcium 8.9 8.4 - 10.2 mg/dL [facility] Bilirubin, Total 0.8 0.0 - 1.0 mg/dL [facility] Aspartate Amino Transferase 31 5 - 37 U/L [facility] Alanine Aminotransferase 30 0 - 40 U/L [facility] Total Protein 6.9 6.5 - 8.0 g/dL [facility] Albumin Level 4.3 3.5 - 5.0 g/dL [facility] Alkaline Phosphatase 83 39 - 117 U/L [facility] Blood Venous blood specimen / Unknown 12/08/2024 11:46 AM EDT 12/08/2024 1:59 PM EDT [facility] EMT/PARAMEDIC LAB BLOOD ORDERABLES Final Re sult Performing Organization Address [facility] Co de Phone Number [facility] [address] [place] [address] [phone] * HEPATITIS C AB W/REFL TO HCV RNA, QN, PCR (08/31/2021 10:56 AM EDT) HEPATITIS C ANTIBODY NON-REACT [facility] NON-REACT [facility] INDEX 0.01 <1.00 [facility] Comment: HCV antibody was non-reactive. There is no laboratory evidence of HCV infection. In most cases, no further action is required. However, if recent HCV exposure is suspected, a test for HCV RNA (test code 36482) is suggested. For additional information please refer to http://education.[employer].Org.ME911/faq/PAP25e7 (This link is being provided for informational/ educational purposes only.) 08/31/2021 10:5 6 AM EDT [facility] EMT/PARAMEDIC HISTORICAL/NON ORDERABLE LABS Final Result Performing Organization Address [facility] Co de Phone Number [facility] [address] [place] [address], from Last 3 Months or Most Recently Relevant to Health Maintenance Insurance [facility] MEDICARE ADVANTAGE HMO DENTAL-[facility] MEDICAID STAND ADULT Care Teams Bin Cleaner Relationship Specialty Start Date End Date Shelly Edwards, JOSE [address] [place] [phone] PCP - General Family Medicine 10/14/21
== END 2025-03-04 14:45 | disposition home or self-care (01) ==
LOC: HO.HUSH 14:01
PROVIDERS: PCP Registered Nurse; Visit Provider Urology
DX: N28.89 Other specified disorders of kidney and ureter (principal)
CPT/HCPCS: 99213; G2211

== ENCOUNTER → 2025-03-04 14:01 | Outpatient (BNVA) | payer MEDICARE, MEDICAID, SELFPAY | PROVIDERS: PCP Registered Nurse; Visit Provider Urology | DX: N28.89 Other specified disorders of kidney and ureter (principal); Z87.891 Personal history of nicotine dependence | CPT/HCPCS: 99212 ==

== ENCOUNTER 2025-03-26 14:10 | Outpatient (REF) | payer MEDICARE, SELFPAY ==
--- OUTSIDE RECORDS SUMMARY | 2025-03-26 19:43 | XMS_ITS | Encounter Summary ---
Author Organization [facility] Address [address] [address] Phone Care Team Providers Care J2Ee Engineer Name Role Phone Roopa Mcdonnell MD Primary Care Provider [phone] Shelly Edwards Primary Care Provider [phone] Encounter Details Date Type Department Care Team (Late st Contact Info) Description 02/13/2024 Procedure Pass [facility] [address] [place] [address] Social History Tobacco Use Types Packs/Day Years [...] on filedocumented in this encounter Care Teams J2Ee Engineer Relationship Specialty Start Date End Date Roopa Mcdonnell MD [address] [place] [address] PCP - General Internal Medicine 09/26/23 01/15/25 GraceShelly acosta FNP [address] [place] [address] PCP - General Nurse Practitioner 01/16/25 documented as of this encounter Additional Source Comments The information contained in this document represents components of the legal health record. It is not the complete legal health record.[facility]
--- OUTSIDE RECORDS SUMMARY | 2025-03-26 19:45 | XMS_ITS | Clinical Summary ---
Author Organization [facility] Address [address] [address] Phone Care Team Providers Care Senior Category Manager Name Role Phone Shelly Edwards [facility] Primary Care Provider [phone] Allergies No known active allergies Medications traMADoL [...] mouth nightly at bedtime. at bedtime. Active Active Problems Problem Noted Date Diagnosed [...] 2:40 PM EDT Office Visit [facility] [address] [place] [address] [place] [address] Reno Daniels DO Nontoxic multinodular goiter (Primary Dx) 01/16/2025 2:48 PM EDT - 01/16/2025 11:59 PM EDT Hospital Encounter [facility], [facility] [address] [place] [address] Reno Daniels DO Discharge Disposition: Home or [...] 5 (>=7pts). Reno Daniels DO [facility] THYROID Final Result from Last 3 Months Insurance MEDICARE REPLAC[place] A & B [facility] MEDICARE REPLACEMENT [place] PART A & [place] [address] [place] [address] MEDICARE REPLACEMENT [place] PART A & [place] [address] [place] [address] MEDICARE REPLACEMENT [facility] MEDICARE PART A & B [facility] MEDICARE REPLACEMENT [facility] MEDICARE PART A & B [facility] MEDICARE REPLACEMENT [facility] MEDICARE PART A & B Care Teams Senior Category Manager Relationship Specialty Start Date End Date Shelly Edwards FNP [address] [place] [phone] PCP - General Nurse Practitioner 01/16/25 Additional Source Comments The information contained in this document represents components of the legal health record. It is not the complete legal health record.[facility]
== END 2025-03-26 14:11 | disposition home or self-care (01) ==
LOC: HO.SH 14:10
PROVIDERS: Visit Provider Registered Nurse
DX: H91.93 Unspecified hearing loss, bilateral (principal)
CPT/HCPCS: 92557

== ENCOUNTER 2025-04-10 09:50 | Outpatient (REF) | payer MEDICARE, SELFPAY ==
--- OUTSIDE RECORDS SUMMARY | 2025-04-08 10:00 | XMS_ITS | Encounter Summary ---
Author Organization [employer] Address [address] [facility] 7[address] [place] [address] Care Team Providers Care Ring Attacher Name Role Phone Shelly Edwards MODEL MAKER [employer] Primary Care Provider [phone] Reason for Visit * Reason Comments Diagonal Pt presents for Jamul n delivery on #13 and finish crown prep on #3Dara R. Encounter Details Date Type Department Care Team (Late st Contact Info) Description 04/08/2025 10:00 AM EST Office Visit [facility] ADULT DENTAL [address] [place] [address] Km Braswell, RUBÉN [address] [place] [address] Social History Tobacco Use Types Packs/Day Years [...] Date Recorded Patient Health Questionnaire-9 Score 0 03/06/2025 Patient Health Questionnaire-9 Score 0 03/06/2025 Last PHQ-9: Questionnaire Data Not on file 1 05/06/2024 Housing Stability Answer Date Recorded What is [...] Date Recorded Patient Health Questionnaire-2 Score 0 03/06/2025 Internet Access Answer Date Recorded Internet Access [...] Sign Reading Time Taken Comments Blood Pressure 142/88 04/08/2025 9:55 AM EST Pulse - - Temperature - - Respiratory Rate - - Oxygen Saturation - - Inhaled Oxygen Concentration - - Weight - - Height - - Body Mass Index - - documented in this encounter Progress Notes * Km Braswell DDS - 04/08/2025 10:00 AM EST Dental procedures in this visit [id number] - CROWN - PORCELAIN/CERAMIC 13 (Completed) Service provider: Km Braswell DDS Billing provider: Miranda Fung DDS D2700.1 - CROWN PREP 3 (Completed) Service provider: Km Braswell DDS Billing provider: Miranda Fung DDS [id number] - CASE PRESENTATION, DETAILED AND EXTENSIVE TREATMENT PLANNING (Completed) Service provider: Km Braswell DDS Billing provider: Miranda Fung DDS Patient ID: Telly Pabon is a 75 y.o. male. Time Out: Date: 04/08/2025 Location: [facility] Tooth: #3 and #13 Procedure: Diagonal Verified the above with patient, assistant infant teacher, and provider. Confirmed via patient's chart, intraorally and by radiographs. Offal Icer Poultry: Yes. Language: German. Offal Icer Poultry's Name: Km Braswell DDS BruxZir / PFM crown seated and cemented on # [address] Km Braswell DDS BruxZir / PFM crown preparation on #[address] Km Braswell DDS Risk, benefits, and alternatives discussed with the patient. CONSENT FORM INITIALED & SIGNED BY THE PATIENT AND COUNTERSIGNED BY Dr. Km Braswell DDS Medical history: Reviewed in EHR Vitals: Blood pressure (!) 142/88. Allergies: Reviewed in EHR Medications: Reviewed in EHR Diagonal Delivery #13: - LA used: None used. - Temporary crown removed. - Temporary cement removed from tooth surface. - Diagonal seated (without cement) - Margin adaptation confirmed by clinical examination. - Occlusion checked using articulating paper - Bitewing of # 13 taken to confirm the adaptation of the margins. - Diagonal cemented using Rely-X - Removed excess cement. - Proximal contact confirmed using dental floss. - Post-op bitewing taken to confirm marginal seal. Diagonal Prep #3: - LA used: 20% topical benzocaine; local infiltration with 1 carpule 4% septocaine/articaine 1:100,000 epinephrine - Pre-op PVS impression recorded for fabrication of provisional crown - Diagonal prep completed on # 3 - Size 000 retraction cord with hemodent placed in gingival sulcus - Impression of crown prep recorded with light and heavy body PVS / 3M Scanner - Retraction cord removed - Integrity placed in PVS impression and placed in mouth for fabrication of provisional - Impression and provisional removed from mouth - Provisional margins adjusted and checked on # 3 - Flowable composite used to approximate margins - Occlusion checked and adjusted as needed using articulating paper - Diagonal seated with Temp-London cement - Margin adaptation confirmed by clinical examination. - Proximal contact confirmed and cleaned with floss - Shade A3 selected Patient given post-op instructions Patient satisfied, left in stable condition NV: Seating of #3 Diagonal Provider: Dr. Km Braswell DDS Machine Hand: CAROLE Caro Supervising Dentist: Dr. Fung * Miranda Fung DDS - 04/08/2025 10:00 AM EST I have reviewed the documentation and dental procedures completed by the rendering provider, RUBÉN Tapia, and approve their chart entries for this visit. RUBÉN Daugherty DDS documented in this encounter Plan of Treatment Upcoming Encounters Date Type Department Care Team (Late st Contact Info) Description 05/06/2025 10:00 AM EST Office Visit [facility] ADULT DENTAL [address] [place], [place] [phone] Km Braswell DDS [address] [place] [address] 07/08/2025 2:00 PM EDT Office Visit [facility] MEDICINE [address] [place] [address] Shelly Edwards FNP [address] [place] [address] documented as of this encounter Goals Goal Patient Goal Type Associated Problems Recent Progress Patient-Stated? Author Blood Pressure < 150/90 Blood Pressure 142/88( 025 9:55 AM EST) No Jairon Daly documented as of this encounter Procedures Procedure Name Priority Date/Time Associated Diagnosis Comments 3 CROWN PREP Routine 04/08/2025 10:00 AM EST 13 CROWN - PORCELAIN/CERAMIC Routine 04/08/2025 10:00 AM EST CASE PRESENTATION, DETAILED AND EXTENSIVE TREATMENT PLANNING Routine 04/08/2025 10:00 AM EST documented in this encounter Visit Diagnoses Not on filedocumented in this encounter Additional Health Concerns Assessment Noted Time PHQ-9 Depression Total Score: 0 03/06/20 25 2:41 PM EST documented as of this encounter Care Teams Ring Attacher Relationship Specialty Start Date End Date Shelly Edwards FNP [address] [place] [address] PCP - General Family Medicine 10/14/21 documented as of this encounter
--- OUTSIDE RECORDS SUMMARY | 2025-04-10 10:50 | XMS_ITS | Clinical Summary ---
Author Organization [employer] Address [address] [facility] 7t [place] [address] Care Team Providers Care Volunteer Services Coordinator Name Role Phone Grace [facility] Primary Care Provider [phone] Allergies No known active allergies Medications polyethylene glycol, PEG, 3350 (MiraLax) 17 GM/SCOOP powderIndications: Constipation, unspecified constipation type Take 17 g by mouth in the morning. Dissolve in 8 oz of fluid 527 g 2 4 Active triamcinolone (Kenalog) 0.025 % creamIndications:R melanie and nonspecific skin eruption Apply topically 2 times daily. 80 g 4 Active glucose blood (OneTouch Verio) test stripIndications:P rediabetes USE DIRECTED TO TEST BLOOD SUGAR EVERY DAY IN THE MORNING 100 strip 12 5 Active Lancets (OneTouch Delica Plus [id number]) miscIndications:Pr ediabetes USE DIRECTED TO TEST BLOOD SUGAR EVERY DAY 100 each 12 5 Active Aspirin Low Dose 81 MG EC tablet TAKE 1 TABLET BY MOUTH EVERY MORNING 90 tablet 3 5 Active terazosin (Hytrin) 10 MG capsule Take 10 mg by mouth at bedtime. 4 Active donepezil (Aricept) 10 MG tabletIndications: Moderate dementia without behavioral disturbance, psychotic disturbance, mood disturbance, or anxiety, unspecified dementia type (CMS/HCC) (HCC) Take 1 tablet (10 mg) by mouth at bedtime. 30 tablet 11 04/01/2025 2:53 PM EST 5 12/02/19 26 Active Accu-Chek Softclix Lancets lancetsIndications :Type 2 diabetes mellitus without complication, without long-term current use of insulin (HCC) USE DIRECTED TO TEST BLOOD SUGAR EVERY DAY IN THE MORNING 100 each 3 04/01/2025 2:53 PM EST 5 Active glucose blood (Accu-Chek Guide Test) test stripIndications:T ype 2 diabetes mellitus without complication, without long-term current use of insulin (HCC) USE DIRECTED TO TEST BLOOD SUGAR EVERY DAY IN THE MORNING 100 each 3 04/01/2025 2:53 PM EST 5 Active Blood Glucose Monitoring Suppl (Accu-Chek Guide Me) w/Device kitIndications:Typ e 2 diabetes mellitus without complication, without long-term current use of insulin (HCC) USE DIRECTED TO TEST BLOOD SUGAR EVERY DAY IN THE MORNING 1 kit 5 Active olmesartan (BENIcar) 5 MG tabletIndications: Hypertension, unspecified type TAKE 1 TABLET BY MOUTH EVERYDAY AT NOON 90 tablet 1 5 Active ibuprofen 600 MG tablet Take 1 tablet (600 mg) by mouth every 6 (six) hours if needed for mild pain for up to 20 doses. 20 tablet 5 Active ibuprofen 600 MG tablet Take 1 tablet (600 mg) by mouth every 6 (six) hours if needed for mild pain for up to 20 doses. 20 tablet 5 Active rosuvastatin (Crestor) 20 MG tabletIndications: Mixed hyperlipidemia Take 1 tablet (20 mg) by mouth at bedtime. 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 [facility] does not accept patient insurance [facility] endo referral pending. Will task RN's to follow up. Provided patient with contact information as well Repeat TSH Assessment & Plan (12/04/2022 2:48 PM EDT): Call placed to [facility] endo. They report previously mailed letter to patient that they are not taking new patients at this time. Spoke with referrals team. Patient insurance not accepted by [facility]. Referral placed to [facility]. Patient will call to make initial appointment. Lacunar infarction ([facility]) 12/04/2022 Assessment & Plan (04/25/2023 3:02 PM EST): Seen on CT scan on 02/2023, no change on the one on 04/18/23 No hx recurrent falls. Fu with PCP re assistance for some ADLs, info re [employer]OOK [employer] program was given to his daughter to [...] patient in enrolling. 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 records unavailable PSA:06/2022 2.12 Vision: [facility]: Discuss at f/u HIV: 08/2021, neg [...] 08/31/2021 Overview (07/21/2022): - Last seen by [facility] urology, Dr. Rios 11/2021 at which time medications (finasteride and terazosin) were d/c. Patient was doing well and was advised to f/u PRN - Hx of recurrent cystitis with previous abx resistance - 09/2020 admitted to [facility] w/ pyelonephritis. CT at this time w/ [...] Encounters Date Type Department Care Team Description 04/08/2025 10:00 AM EST Office Visit [facility] ADULT DENTAL [address] [place] [address] Km Braswell DDS 04/01/2025 Telephone [facility] MEDICINE [address] [place] [address] Shelly Edwards FNP Lab Orders 03/24/2025 9:00 AM EST Office Visit [facility] ADULT DENTAL [address] [place] [address] Km Braswell DDS 03/23/2025 9:00 AM EST Office Visit [facility] ADULT DENTAL [address] [place] [address] Km Braswell DDS 03/16/[address] [facility] ADULT DENTAL [address] [place] [address] Km Braswell DDS clarification on case 03/09/[address] [facility] PEDS [address] [place] [address] Shelly Edwards FNP 03/06/2025 2:30 PM EST Office Visit [facility] MEDICINE [address] [place] [address] Shelly Edwards FNP Prediabetes (Primary Dx); Primary hypertension [I10]; Mixed hyperlipidemia; Moderate dementia without behavioral disturbance, psychotic disturbance, mood disturbance, or anxiety, unspecified dementia type (CMS/HCC) (HCC); Encounter for immunization 03/06/2025 Travel 03/05/2025 9:00 AM EST Office Visit [facility] ADULT DENTAL [address] [place] [address] BraswellAramis cokeripe, DDS 03/05/2025 Telephone [facility] [address] [place] [address] Shelly Edwards FNP chart prep 02/27/[address] [facility] [address] [place] [address] Shelly Edwards FNP Pre-visit Planning ([facility] unable to reach [facility] ) 02/19/2025 2:00 PM EDT Office Visit [facility] ADULT DENTAL [address] [place] [address] BraswellAramisKm, DDS 02/09/2025 2:30 PM EDT Office Visit [facility] ADULT DENTAL [address] [place] [address] Braswell Km, DDS 01/26/2025 1:00 PM EDT Office Visit [facility] ADULT DENTAL [address] [place] [address] Braswell Km, DDS 01/26/2025 Results Follow-Up [facility] [address] [place] [address] Shelly Edwards FNP US Renal Complete 01/19/2025 1:00 PM EDT Office Visit [facility] ADULT DENTAL [address] [place] [address] BraswellAramis cokeripe, DDS 01/13/2025 Refill [facility] [address] [place] [address] Shelly Edwards FNP Hypertension, unspecified type from Last 3 Months Immunizations Immunization Administration Dates Next Due Influenza High-dose Quadriva lent Preservative Free 01/31/2023,03/14/2022 Influenza, High Dose Seasona l, Preservative Free 03/06/2025 Influenza, seasonal, injecta ble, preservative free 06/27/2024 [...] Pressure 142/88 04/08/2025 9:55 AM EST Pulse 60 03/06/2025 2:40 PM EST Temperature 36.3 C (97.3 F) 03/06/2025 2:40 PM EST Respiratory Rate 20 03/06/2025 2:40 PM EST Oxygen Saturation 97% 09/08/2024 4:05 PM EDT Inhaled Oxygen Concentration - - Weight 82.3 kg (181 lb 6.4 oz) 03/06/2025 2:40 P M EST Height 177.8 cm (5' 10 ) 03/06/2025 2:40 PM EST Body Mass Index 26.03 03/06/2025 2:40 PM EST Plan of Treatment Upcoming Encounters Date Type Department Care Team (Late st Contact Info) Description 05/06/2025 10:00 AM EST Office Visit [facility] ADULT DENTAL [address] [place] [address] Km Braswell, JEANNES [address] [place] [address] 07/08/2025 2:00 PM EDT Office Visit [facility] MED[facility] [address] [place] [address] Shelly Edwards FNP [address] [place] [address] Health Maintenance Due Date Last Done Comments Diabetes: Foot Exam 1959 Eye Exam 1959 Diabetes: Urine Protein Screening 1968 COVID-19 Vaccine ( season) 2024 10/28/2021, 03/10/2021, 07/25/2020, Additional history exists Dental Oral Exam 01/08/2025 07/07/2024, 04/10/2023 Dental Prophylaxis 01/08/2025 07/07/2024, 04/13/2023 Diabetes: Hemoglobin A1C 06/10/2025 025, 10/24/2023, 04/18/2023, Additional history exists SDOH Screening 06/27/2025 06/27/2024 Alcohol/Substance Use Screening 12/01/2025 12/01/2024 Lipid Panel 12/08/2025 12/08/2024, 07/0 06/2023, 02/09/2023, Additional history exists Depression Screening 03/06/2026 03/06/2025, 03/06/20 Dental X-Ray: Bitewings 03/24/2026 03/23/20, 07/07/2024, 04/10/2023, Additional history exists Tobacco Screening 04/08/2026 04/08/2025 Dental X-Ray: Full Mouth 04/11/2026 04/10/2023 DTaP/Tdap/Td Vaccines (2 - Td or Tdap) 10/15/2031 10/14/2021 Hepatitis C Screening Completed 08/31/2021 Zoster Vaccines Completed 11/07/2021, 08/31/2021 Pneumococcal Vaccine: 50+ Years Completed 01/31/2023, 08/31/2021 RSV Patients and Patients Aged 60 years or older Completed 03/19/2023 Influenza Vaccine Completed 03/06/2025, , 01/31/2023, Additional history exists HIB Vaccines Aged Out No longer eligi [...] 025 9:55 AM EST) No Jairon Daly Procedures Procedure Name Priority Date/Time Associated Diagnosis Comments 13 CROWN - PORCELAIN/CERAMIC Routine 04/08/2025 10:00 AM EST 3 CROWN PREP Routine 04/08/2025 10:00 AM EST CASE PRESENTATION, DETAILED AND EXTENSIVE TREATMENT PLANNING Routine 04/08/2025 10:00 AM EST CASE PRESENTATION, DETAILED AND EXTENSIVE TREATMENT PLANNING Routine 03/24/2025 9:00 AM EST 3 CORE BUILDUP, INCL ANY PINS WHEN REQ Routine 03/24/2025 9:00 AM EST 3 INTRAORAL - PERIAPICAL FIRST RADIOGRAPHIC IMAGE Routine 03/23/2025 9:00 AM EST BITEWING - SINGLE RADIOGRAPHIC IMAGE Routine 03/23/2025 9:00 AM EST CASE PRESENTATION, DETAILED AND EXTENSIVE TREATMENT PLANNING Routine 03/23/2025 9:00 AM EST CONSULTATION - DIAGNOSTIC SERVICE PROVIDED BY DENTIST OR PHYSICIAN OTHER THAN REQUESTING DENTIST OR PHYSICIAN Routine 03/23/2025 9:00 AM EST 13 CROWN PREP Routine 03/05/2025 9:00 AM EST 13 PREFABRICATED POST AND CORE IN ADDITION [...] 01/22/2025 2:5 4 PM EDT Kidney lesion, pokagon, right 13 ENDODONTIC THERAPY, PREMOLAR TOOTH Routine 01/19/2025 1:00 PM EDT CASE PRESENTATION, DETAILED AND EXTENSIVE TREATMENT PLANNING Routine 01/19/2025 1:00 PM EDT HEMOGLOBIN A1C Routine 12/08/2024 11:46 AM EDT Primary hypertension [I10] LIPID PANEL, STANDARD Routine 12/08/2024 11:46 AM EDT Primary hypertension [I10] Full PROPHYLAXIS - ADULT Routine 07/07/2024 2:00 PM EDT PERIODIC ORAL [...] PM EDT Narrative 01/22/2025 3:45 PM EDT [place] [address] Ultrasound Report Signed Patient: Telly Florez MR#: [id number] 87 : 1950 Acct:[id number] Age/Sex: 74 / M ADM Date: 01/22/25 Loc: HO. Attending Dr: Shelly GARCIA Ordering Physician: Shelly Edwards Date of Service: 01/22/25 Procedure(s): US renal BI Accession Number(s): [id number] cc: Shelly Edwards Reason for Exam: DISORDER [...] 01/22/25 1542 DD/ 1454 TD/TT: 01/22/25 1508 Museum Specialist: Procedure Note Donotuseinterpreter, Image - 01/22/2025 [place] [address] Ultrasound Report Signed Patient: Telly Florez RMR#: [id number] 87 : 9Acct:[id number] Age/Sex: 74 / MADM Date: 01/22/25 Loc: HO.US Attending Dr: Shelly GARCIA Ordering Physician: Shelly Edwards Date of Service: 01/22/25 Procedure(s): US renal BI Accession Number(s): [id number] cc: Shelly Edwards Reason for Exam: DISORDER [...] 01/22/25 1542 DD/ 1454 TD/TT: 01/22/25 1508 Museum Specialist: [facility] MANUFACTURING ENGINEER AUTOMOTIVE IMG US PROCEDURES Edited Resu lt - Final * (ABNORMAL) Hemoglobin A1c (12/08/2024 11:46 AM EDT) Hemoglobin A1c 6.1(H) <6.0 % [facility] Comment:Hemoglobin A1C Refer ence Range Adults: 4.8 - 6.0 % Non diabetic: < 6.0 % Goal: < 7.0 %Additional Action Suggested: > 8.0 %Note: Hemoglobin A1c results are invalid for patients with abnormal amounts of HbF. Blood transfusions may impact the HbA1c concentration in the patient sample. Estimated Average Glucose 128 mg/dL [facility] Comment:eAG = Estimated ave rage glucose which is %A1C expressed asaverage glucose, using the formula of the W6N-DovooaqSzasuwn Glucose study (ADAG), Diabetes Care, Vol.31,#8,Nov. 2007 Blood Venous blood specimen / Unknown 12/08/2024 11:46 AM EDT 12/08/2024 1:59 PM EDT [facility] LAB BLOOD ORDERABLES Final Re sult Performing Organization Address City/[facility] Co de Phone Number [facility] [address] [place], [place] [phone] * Lipid Panel, Standard (12/08/2024 11:46 AM EDT) Triglycerides 89 <150 mg/dL [facility] Comment:Desirable Triglyceri de: less than 150 mg/dLBorderline High Triglyceride 150-199 mg/dLHigh Triglyceride: 200-499 mg/dLVery High Triglyceride: greater than or equal to 5OO mg/dL Cholesterol 132 <200 mg/dL [facility] Comment:Desirable Cholestero l: less than 200 mg/dLBorderline High Cholesterol: 200-239 mg/dLHigh Cholesterol: greater than 239 mg/dL LDL Cholesterol Calculated 72 <100 mg/dL [facility] Comment:Desirable LDL: less than 100 mg/dLNear Optimal/Above Optimal LDL: 110- 129 mg/dLBorderline High LDL: 130-159 mg/dLHigh LDL: 160-189 mg/dLVery High LDL: greater than or equal to 190 mg/dL HDL Cholesterol 43 >40 mg/dL [facility] Comment:Desirable HDL: great er than 40 mg/dL Note: This HDL assay may give artificially low results in patients with liver disease. Blood Venous blood specimen / Unknown 12/08/2024 11:46 AM EDT 12/08/2024 1:59 PM EDT [facility] LAB BLOOD ORDERABLES Final Re sult Performing Organization Address City/[facility]/ZIP Co de Phone Number [facility] [address] [place] [address] [phone] * HEPATITIS C AB W/REFL TO HCV RNA, QN, PCR (08/31/2021 10:56 AM EDT) HEPATITIS C ANTIBODY NON-REACT LACHELLE NON-REACT LACHELLE [facility] INDEX 0.01 <1.00 [facility] Comment: HCV antibody was non-reactive. There is no laboratory evidence of HCV infection. In most cases, no further action is required. However, if recent HCV exposure is suspected, a test for HCV RNA (test code 24237) is suggested. For additional information please refer to http://education.[employer]/faq/VYP56f9 (This link is being provided for informational/ educational purposes only.) 08/31/2021 10:5 6 AM EDT [facility] MANUFACTURING ENGINEER AUTOMOTIVE HISTORICAL/NON ORDERABLE LABS Final Result Performing Organization Address City/State/[facility] Co de Phone Number [facility] [address] from Last 3 Months or Most Recently Relevant to Health Maintenance Insurance AARP MEDICARE ADVANTAGE HMO [place] STAND ADULT Care Teams Volunteer Services Coordinator Relationship Specialty Start Date End Date Shelly Edwards FNP [address] [place] [phone] PCP - General Family Medicine 10/14/21
--- OUTSIDE RECORDS SUMMARY | 2025-04-10 10:50 | XMS_ITS | Encounter Summary ---
Author Organization [employer] Address [address] [facility] [address]t [place] [address] Care Team Providers Care Principal Data Architect Name Role Phone [facility] Primary Care Provider [phone] Reason for Visit * Reason Comments Med Refill Encounter Details Date Type Department Care Team ([facility] st Contact Info) Description 06/10/2024 Refill [facility] MEDICINE [address] [place], [place] [phone] [facility] [address] [place] [address] Primary hypertension Social History Tobacco Use Types [...] Description 05/06/2025 10:00 AM EST Office Visit [facility] ADULT DENTAL [address] [place] [address] Km Braswell DDS [address] [place] [address] 07/08/2025 2:00 PM EDT Office Visit [facility] MEDICINE [address] [place] [address] Shelly Edwards FNP [address] [place] [address] documented as of this encounter Goals Goal [...] documented as of this encounter Care Teams Principal Data Architect Relationship Specialty Start Date End Date Shelly Edwards FNP [address] [place] [address] PCP - General Family Medicine 10/14/21 documented as of this encounter
--- OUTSIDE RECORDS SUMMARY | 2025-04-10 10:50 | XMS_ITS | Encounter Summary ---
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
--- OUTSIDE RECORDS SUMMARY | 2025-04-10 10:50 | XMS_ITS | Clinical Summary ---
Author Organization [facility] Address [address] [address] Phone Care Team Providers Care Church Supervisor Name Role Phone Shelly Edwards [facility] Primary Care Provider Allergies No [...] Description 02/05/2025 2:40 PM EDT Office Visit [facility] [address] [place] [address] [place] [address] Reno Daniels DO Nontoxic multinodular goiter (Primary Dx) 01/16/2025 2:48 PM EDT - 01/16/2025 11:59 PM EDT Hospital Encounter [facility], [address] [address] Reno Daniels DO Discharge Disposition: Home or [...] 1950 POTASSIUM LEVEL 1949 DEPRESSION SCREENING 1961 SMOKING Hx and SMOKELESS TOBACCO SCREENING 1962 HEPATITIS C SCREENING 1967 ZOSTER VACCINES (1 of 2) 1999 PNEUMOCOCCAL VACCINES (50+ years) (2 of 2 - PCV) 08/31/2022 08/31/2021 RSV VACCINE (1 - 1-dose 75+ series) 2024 INFLUENZA VACCINE (#1) 2024 COVID-19 VACCINE (1 - 2024-2 6 season) 2024 LIPID PANEL 12/08/2029 12/08/2024, 10/24/2023 Adult Td,Tdap [...] 6 pts), 5 (>=7pts). Reno Daniels DO [facility] THYROID Final Result from Last 3 Months Insurance [facility] MEDICARE REPLACEMENT [facility] PART A & [place] [address] [place] [address] MEDICARE REPLACEMENT [facility] & [place] [address] [place] [address] MEDICARE REPLACEMENT [facility] MEDICARE PART A & B Member Subscriber Plan / Payer (Ef fective 2014-Present) Name:Telly Matthews Member ID:[id number] Relation to Subscriber:Self Name:Telly Matthews Subscriber ID:[id number] Payer ID:[id number] Group ID:Not on file Type:Medicare Address: [employer] [address] [place] [address] [facility] MEDICARE REPLACEMENT [facility] MEDICARE PART A & B [facility] MEDICARE REPLACEMENT [place] MEDICARE PART A & B [facility] MEDICARE REPLACEMENT [place] MED[place] PART A & B Care Teams Church Supervisor Relationship Specialty Start Date End Date Shelly Edwards FNP [address] [place] [id number] PCP - General Nurse Practitioner 01/16/25 Additional Source Comments The information contained in this document represents components of the legal health record. It is not the complete legal health record.[facility]
--- OUTSIDE RECORDS SUMMARY | 2025-04-10 10:50 | XMS_ITS | Encounter Summary ---
Author Organization [employer] Address [address] [place] [address] [address] [address] Care Team Providers Care Truck Packer Name Role Phone Grace [facility] Primary Care Provider [phone] Encounter Details Date Type Department Care Team (Late Contact Info) Description 03/29/2022 Orders Only [address] [address] Celia Padilla MD [address] [place] [address] (Primary Dx) Social History [...] Department Care Team (Late Contact Info) Description 05/06/2025 10:00 AM EST Office Visit [facility]ULT [facility] [address] [place] [address] Km Braswell, DDS [address] [place] [address] 07/08/2025 2:00 PM EDT Office Visit [facility] MEDICINE [address] [place] [address] [facility] [address] [place] [address] Scheduled Orders Name Type Priority Associated Diagnoses [...] Specific Antigen 2.12 <0.05 - 4.0 ng/mL [facility] Comment:PSA methodology: Starla Velazquez i ChemiluminescentMicroparticle Immunoassay (CMIA) 06/22/2022 1:10 PM EST 06/22/2022 1:10 PM EST us [facility] External Provider LAB BLO OD ORDERABLES Final Result Performing Organization Address City/State/[facility] Co de Phone Number [facility] [address] [place] [phone] * MR Brain w/o Contrast (03/30/2022 9:25 AM EST) Anatomical Region Laterality Modality Brain Magnetic Resonan ce 03/30/2022 9:25 AM EST Narrative 2022 11:46 AM EST [address] [address] Magnetic Resonance Report Signed Patient: Telly Florez MR#: [id number] : 1950 Acct:[id number] Age/Sex: 71 / M ADM Date: 03/30/22 Loc: HO.MRI Attending Dr: Milagros Ho MD Ordering Physician: Milagros Ho MD Date of Service: 03/30/22 Procedure(s): MR head/brain wo con Accession Number(s): [id number] cc: Milagros Ho MD EXAMINATION: MR BRAIN [...] in OV> 03/31/22 1143 DD/ 4 TD/TT: Tire Sorter: Procedure Note Donotuseinterpreter, Image - 06/01/2022 [place] [address] Magnetic Resonance Report Signed Patient: Jim Florez#: [id number] : 9Acct:[id number] Age/Sex: 71 / MADM Date: 03/30/22 Loc: HO.MRI Attending Dr: Milagros Ho MD Ordering Physician: Milagros Ho MD Date of Service: 03/30/22 Procedure(s): MR head/brain wo con Accession Number(s): [id number] cc: Milagros Ho MD EXAMINATION: MR BRAIN [...] Martin in OV> 03/31/22 1143 DD/ TD/TT: Tire Sorter: [facility] External Provider IMG MRI PROCEDURES Final Result documented in this encounter Visit Diagnoses Diagnosis Abnormal brain CT- Primary Nonspecific (abnormal) findings on radiological and other examination of skull and head documented in this encounter Care Teams Truck Packer Relationship Specialty Start Date End Date GraceShelly acosta FNP [address] [place] [address] PCP - General Family Medicine 10/14/21 documented as of this encounter
--- OUTSIDE RECORDS SUMMARY | 2025-04-10 10:50 | XMS_ITS | Encounter Summary ---
Author Organization [facility] Address [address] [address] Phone Care Team Providers Care Feeder Driver Name Role Phone Roopa Mcdonnell MD Primary Care Provider [phone] Shelly Edwards Primary Care Provider [phone] Encounter Details Date Type Department Care Team (Late st Contact Info) Description 02/13/2024 Procedure Pass [facility] [address] [place] [address] Social History Tobacco Use Types Packs/Day Years [...] on filedocumented in this encounter Care Teams Feeder Driver Relationship Specialty Start Date End Date Roopa Mcdonnell MD [address] [place] [address] PCP - General Internal Medicine 09/26/23 01/15/25 GraceShelly acosta FNP [address] [place] [phone] PCP - General Nurse Practitioner 01/16/25 documented as of this encounter Additional Source Comments The information contained in this document represents components of the legal health record. It is not the complete legal health record.[facility]
--- OUTSIDE RECORDS SUMMARY | 2025-04-10 10:50 | XMS_ITS | Encounter Summary ---
Author Organization [employer] Address [address] [facility] [address] [place] [address] Care Team Providers Care Senior Account Director Name Role Phone Grace [facility] Primary Care Provider [phone] Reason for Visit * Reason Onset Date Comments clarification on case 03/16/2025 Encounter Details Date Type Department Care Team ([facility] st Contact Info) Description 03/16/2025 Telephone C [facility] ADULT DENTAL [address] [place] [address] Km Braswell DDS [address] [place] [address] clarification on case Social History Tobacco Use Types Packs/Day Years [...] encounter Miscellaneous Notes * Telephone Encounter - Christa Acharya - 03/16/2025 11:41 AM EST Cheyanne from [employer] called looking to speak with provider for clarification on case. Please reach out to her at [phone] documented in this encounter Plan of Treatment Upcoming Encounters Date Type Department Care Team (Late st Contact Info) Description 05/06/2025 10:00 AM EST Office Visit [facility] CH[facility] ADULT DENTAL [address] [place] [address] Km Braswell, JEANNES [address] [place] [address] 07/08/2025 2:00 PM EDT Office Visit [facility] MEDICINE [address] [place] [address] Shelly Edwards FNP [address] [place] [address] documented as of this encounter Goals Goal [...] documented as of this encounter Care Teams Senior Account Director Relationship Specialty Start Date End Date Shelly Edwards FNP [address] [place] [address] PCP - General Family Medicine 10/14/21 documented as of this encounter
[2025-04-10 15:32] LABS: Anion Gap 10 (12-20); Blood Urea Nitrogen 10 mg/dL (9-16); Calcium 9.1 mg/dL (8.4-10.2); Carbon Dioxide 29 mmol/L (22-29); Chloride 105 mmol/L (96-108); Estimated Glomerular Filt Rate > 60; Potassium 4.2 mmol/L (3.3-5.1); Sodium 140 mmol/L (135-145)
== END 2025-04-10 09:51 | disposition home or self-care (01) ==
LOC: HO.CHCLDS 09:50
PROVIDERS: Visit Provider Registered Nurse
DX: N28.89 Other specified disorders of kidney and ureter (principal)
CPT/HCPCS: 36415; 80048